=== PATIENT | female | born 1940 | race Caucasian/White ===

== ENCOUNTER 2016-04-11 12:10 | Outpatient (CLI) | payer MEDICARE | END 2016-04-11 12:11 | disposition home or self-care (01) | DX: G47.62 Sleep related leg cramps (principal); R25.1 Tremor, unspecified ==

== ENCOUNTER 2016-04-12 15:39 | Outpatient (CLI) | payer MEDICARE | END 2016-04-12 15:40 | disposition home or self-care (01) | DX: Z12.11 Encounter for screening for malignant neoplasm of colon (principal) ==

== ENCOUNTER 2016-05-09 12:48 | Outpatient (CLI) | payer MEDICARE | END 2016-05-09 12:49 | disposition home or self-care (01) | DX: E04.1 Nontoxic single thyroid nodule (principal) ==

== ENCOUNTER 2016-05-11 09:05 | Outpatient (CLI) | payer MEDICARE | END 2016-05-11 09:06 | disposition home or self-care (01) | DX: Z13.820 Encounter for screening for osteoporosis (principal); M81.0 Age-related osteoporosis without current pathological fracture ==

== ENCOUNTER 2017-04-18 10:30 | Outpatient (CLI) | payer MEDICARE ==
[2017-04-18 10:45] LABS: BASOPHILS % (AUTO) 0.4 %; EOSINOPHILS # (AUTO) 0.1 10^3/uL (0.0-0.7); EOSINOPHILS % (AUTO) 1.9 %; HGB - HEMOGLOBIN 15.1 g/dL (12.0-16.0); LYMPHOCYTES % (AUTO) 30.4 %; MEAN CORPUSCULAR HEMOGLOBIN 30.5 pg (27.0-31.0); MEAN CORPUSCULAR HGB CONC 33.9 g/dL (32.0-36.0); MEAN CORPUSCULAR VOLUME 90.1 fL (81.0-99.0); MEAN PLATELET VOLUME 7.4 fL (7.9-10.8); MONOCYTES # (AUTO) 0.5 10^3/uL (0.0-1.0); MONOCYTES % (AUTO) 8.2 %; NEUTROPHILS # (AUTO) 3.9 10^3/uL (1.5-6.6); NEUTROPHILS % (AUTO) 59.1 %; PLT - PLATELET COUNT 207 10^3/uL (130-450); RED BLOOD COUNT 4.94 10^6/uL (4.20-5.40); RED CELL DISTRIBUTION WIDTH 13.7 % (12.0-15.0); WHITE BLOOD COUNT 6.5 x10^3/uL (4.8-10.8)
[2017-04-18 10:51] LABS: ALBUMIN 4.2 g/dL (3.2-5.5); ALBUMIN/GLOBULIN RATIO 1.6 (1.0-2.2); ALKALINE PHOSPHATASE 59 IU/L (42-121); ALT ALANINE AMINOTRANSFERASE 21 IU/L (10-60); AST ASPARTATE AMINOTRANSFERASE 21 IU/L (10-42); BILIRUBIN,TOTAL 0.6 mg/dL (0.2-1.0); BUN - BLOOD UREA NITROGEN 18 mg/dL (6-20); CALCIUM 8.9 mg/dL (8.5-10.3); CARBON DIOXIDE - CO2 26 mmol/L (21-32); CHLORIDE 102 mmol/L (101-111); CHOL/HDL RATIO 3.7 (<4.4); CHOLESTEROL 253 mg/dL; CREATININE 0.8 mg/dL (0.4-1.0); GFR - MDRD 70 (>89); GLUCOSE 102 mg/dL (70-100); HDL CHOLESTEROL 68 mg/dL; LDL CHOLESTEROL,CALCULATED 171 mg/dL; LDL/HDL RATIO 2.5 (<4.4); SODIUM 139 mmol/L (135-145); TOTAL PROTEIN 6.9 g/dL (6.7-8.2); VLDL CHOLESTEROL 14 mg/dL
--- NOTE | 2017-04-18 11:28 | CT Report ---
DATE OF SERVICE: 04/18/2017 CT BRAIN WITHOUT CONTRAST: 04/18/2017 CLINICAL INDICATION: TIA, atypical headache TECHNIQUE: Axial CT images of the brain were obtained without intravenous contrast. No previous CT is available for comparison. FINDINGS: The ventricles and sulci are normal in size, shape and configuration. The basilar cisterns are patent. There is no evidence of hemorrhage, mass effect, or large territory infarction. The visualized orbital contents and paranasal sinuses are unremarkable. IMPRESSION: NORMAL CT OF THE BRAIN WITHOUT CONTRAST. In accordance with CT protocol optimization, one or more of the following dose reduction techniques were utilized for this exam: automated exposure control, adjustment of mA and/or KV based on patient size, or use of iterative reconstructive technique. TD: 04/18/2017 12:26
== END 2017-04-18 10:31 | disposition home or self-care (01) ==
LOC: LAB 10:30
PROVIDERS: ATTEND Physician Assistant Medical
DX: R51 Headache (principal); G45.9 Transient cerebral ischemic attack, unspecified; E78.00 Pure hypercholesterolemia, unspecified; E04.2 Nontoxic multinodular goiter
CPT/HCPCS: 36415; 70450; 80053; 80061; 83721; 84443; 85025

== ENCOUNTER 2017-04-26 06:56 | Day surgery (SDC) | payer MEDICARE ==
[~2017-04-26 06:56] MED LIST: CYCLOPENTOLATE 1% OPHTH DROPS 2 ML ONE; KETOROLAC 0.45% OPHTH DROPS ONE; PHENYLEPHRINE 2.5% OPHTH 2 ML DROPS ONE; PROPARACAINE 0.5% OPHTH DROPS 15 ML ONE
[2017-04-26] MEDS ORDERED: LACTATED RINGERS 500 ML IV ONE (07:03)
[2017-04-26] MEDS ORDERED: BRIMONIDINE 0.2% OPHTH DROPS 5 ML ONE (07:13)
[2017-04-26] MEDS ORDERED: TIMOLOL 0.5% OPHTH DROPS ONE (07:13)
[2017-04-26] MEDS ORDERED: PROPARACAINE 0.5% OPHTH DROPS 15 ML RIGHTEYE ONE ×2 (07:15→08:07)
[2017-04-26] MEDS ORDERED: CYCLOPENTOLATE 1% OPHTH DROPS 2 ML RIGHTEYE ONE (07:15)
[2017-04-26] MEDS ORDERED: PHENYLEPHRINE 2.5% OPHTH 2 ML DROPS RIGHTEYE ONE (07:15)
[2017-04-26] MEDS ORDERED: KETOROLAC 0.45% OPHTH DROPS RIGHTEYE ONE (07:15)
[2017-04-26] MEDS ORDERED: MIDAZOLAM 2 MG/2 ML VIAL IVP ONE (08:00)
[2017-04-26] MEDS ORDERED: EPINEPHrine 1 MG/ML AMP IVP ONE (08:05)
[2017-04-26] MEDS ORDERED: BRIMONIDINE 0.2% OPHTH DROPS 5 ML OPTH ONE (08:05)
[2017-04-26] MEDS ORDERED: BSS/LIDOCAINE/EPINEPHRINE 1 ML SYRINGE IO ONE ×2 (08:06)
[2017-04-26] MEDS ORDERED: CHONDR SULF/HYALURONATE SYRINGE IO ONE (08:06)
[2017-04-26] MEDS ORDERED: TIMOLOL 0.5% OPHTH DROPS OPTH ONE (08:06)
[2017-04-26] MEDS ORDERED: TRIAMCIN/MOXIFLOX/VANCO 1 ML VIAL IO ONE ×2 (08:07)
[2017-04-26 08:29] VITALS: BP 117/80
--- NOTE | 2017-04-26 10:21 | OPERATIVE REPORT ---
DATE OF SERVICE: 04/26/2017 Physician: Scout Winston MD DATE OF SURGERY: 04/26/2017 PREOPERATIVE DIAGNOSIS: Visually significant cataract, right eye. This was her first cataract surgery. POSTOPERATIVE DIAGNOSIS: Visually significant Visually significant cataract, right eye. This was her first cataract surgery. NAME OF PROCEDURE: Phacoemulsification with posterior chamber intraocular lens implant, right eye. SURGEON: Scout Winston MD ANESTHESIA: Monitored anesthesia care. COMPLICATIONS: None. OPERATIVE INDICATIONS: This is a 77-year-old woman with progressive vision loss in the right eye due to 2+ nuclear sclerotic cataract. Best corrected visual acuity was 20/50 with glare to 20/160 in the right eye. INDICATIONS FOR SURGERY Overall decrease in vision, difficulty seeing words on a computer screen; difficulty seeing words, closed caption, or game scores on TV; difficulty driving in low light or at night, difficulty driving at night because of head lights from other vehicles, and difficulty with glare or bright lights in any situation. She was consented at length concerning risks and benefits of cataract surgery, after which she expressed a desire to proceed with surgery. OPERATIVE PROCEDURE: The patient was taken into OR #3 and placed under monitored anesthesia care. A surgical timeout was conducted confirming correct patient, correct procedure, and correct surgical site. She was given topical anesthesia, and then prepped and draped in the usual sterile fashion. The eye was entered at the 12 and 9 o'clock position. Intracameral Shugarcaine was injected into the anterior chamber, followed by Viscoat. A continuous-tear curvilinear capsulorrhexis was performed. The nucleus was hydrodissected and phacoemulsified. The cortex was evacuated using automated infusion aspiration. Provisc was injected in the capsular bag, and the 19.0 diopter intraocular lens was inserted in the bag. Approximately 0.8 mL of a mixture of triamcinolone, moxifloxacin, and vancomycin was injected subconjunctivally in the superior quadrant for infection and inflammation prophylaxis. I and A was used to evacuate the viscoelastic materials. The eye was inflated to physiologic pressure using balanced salt solution and found watertight. The patient was taken from the operating room in good condition and given postoperative instructions. TD: 04/26/2017 10:20
== END 2017-04-26 06:57 | disposition home or self-care (01) ==
LOC: SDS 06:56
PROVIDERS: ATTEND Ophthalmology
PROC: 08RJ3JZ Replacement of Right Lens with Synthetic Substitute, Percutaneous Approach (ICD-10-PCS; principal; 2017-04-26 08:00)
DX: H25.11 Age-related nuclear cataract, right eye (principal)
CPT/HCPCS: 66984; A9270; J3490; V2632

== ENCOUNTER 2017-05-11 07:34 | Outpatient (CLI) | payer MEDICARE ==
[2017-05-11] MEDS ORDERED: GADOBUTROL 10 MMOL/10 ML VIAL ONE (07:45)
[2017-05-11] MEDS ORDERED: GADOBUTROL 10 MMOL/10 ML VIAL IVP ONE (08:31)
--- NOTE | 2017-05-11 11:53 | MRI Report ---
MR ANGIOGRAM HEAD INDICATION: 77-year-old female with episode of altered mental status. Concern for TIA. Please assess. TECHNIQUE: 3-D [id number] MR angiography. COMPARISON: None. FINDINGS: The internal carotid arteries appear widely patent bilaterally. No ICA aneurysm is demonstrated. Ther e are infundibular origins for the posterior communicating arteries bilaterally. These should not be mistaken for aneurysms. The A1 segments of the anterior cerebral arteries are essentially codominant. No definite anterior communicating artery is demonstrated. There is good flow related enhancement in the imaged A2 branches bilaterally. The middle cerebral arteries are unremarkable. No aneurysm is demonstrated and there is no evidence o f occlusion or hemodynamically significant stenosis affecting main branches of either MCA. The vertebral arteries and left PICA appear widely patent. No aneurysm at the left PICA origin. No ri ght PICA is identified. The right PICA circulation is probably supplied by the right AICA (normal william tomical variant). The basilar artery, superior cerebellar arteries, and posterior cerebral arteries a ppear widely patent. There are patent posterior communicating arteries. No aneurysms are identified a rising from the basilar artery trunk or apex. IMPRESSION: Normal [place] MR angiogram. Referring Provider Line: [phone] SITE ID: [id number]
--- NOTE | 2017-05-11 12:46 | MRI Report ---
MR ANGIOGRAM NECK WITHOUT AND WITH CONTRAST INDICATION: 77-year-old female with episode of altered mental status. Concern for TIA. Please assess. COMPARISON: None. TECHNIQUE: 1. T1 fat-saturated axial sequence. 2. 2D [id number] MR angiography. 3. 3D gadolinium-enhanced MR angiography. Significant arterial stenoses will be assessed using NASCET-type measurements. FINDINGS: The innominate artery and left common carotid artery share a common origin. This represents a known a natomical variant. Branching of the aortic arch is otherwise normal. No stenoses are demonstrated in the first order supra-aortic arteries. Right carotid artery: Normal. Left carotid artery: Normal. Right vertebral artery: Normal. Left vertebral artery: Normal. IMPRESSION: Normal neck MR angiogram. Referring Provider Line: [phone] SITE ID: [id number]
== END 2017-05-11 07:35 | disposition home or self-care (01) ==
LOC: DI 07:34
PROVIDERS: ATTEND Physician Assistant Medical
DX: E78.70 Disorder of bile acid and cholesterol metabolism, unspecified (principal); G45.9 Transient cerebral ischemic attack, unspecified
CPT/HCPCS: 70544; 70549; A9585

== ENCOUNTER 2018-04-07 14:32 | Observation (INO) | payer MEDICARE ==
[2018-04-07 14:58] LABS: BILIRUBIN,URINE NEGATIVE (NEGATIVE); GLUCOSE, URINE (UA) NEGATIVE (NEGATIVE); KETONES,URINE (UA) NEGATIVE (NEGATIVE); LEUKOCYTE ESTERASE, URINE TRACE (NEGATIVE); NITRITE,URINE NEGATIVE (NEGATIVE); OCCULT BLOOD,URINE TRACE-INTA (NEGATIVE); PH,URINE 5.5 PH (5.0-7.5); PROTEIN,URINE NEGATIVE (NEGATIVE); UROBILINOGEN,URINE 0.2 (NORMAL) E.U./dL (NORMAL)
[2018-04-07 15:14] LABS: CLARITY,URINE CLEAR (CLEAR)
[2018-04-07 15:16] LABS: BACTERIA,URINE None Seen /HPF (None Seen); RBC,URINE 0-5 /HPF (0-5); SQUAMOUS EPITHELIAL CELL,UR MOD Squamous (<= Few)
--- NOTE | 2018-04-07 15:20 | ED Physician Documentation ---
PD HPI FOCAL NEURO - Stated complaint Stated Complaint: NAUSEA/CONFUSION/WEEK - Chief complaint Chief Complaint: Neuro - History obtained from History obtained from: Patient - History of Present Illness Timing - onset: Enter time (about 1300), How many hours ago (03 19/) Timing - duration: Hours (1) Timing - details: Abrupt onset (She had felt somewhat lightheaded or confused for about 5 minutes prior to the onset of then feeling some numbness on the left side of her mouth and also feeling that she had some confusion for what she was doing. 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 She tried talking to her daughter and was having difficulty making sense. She got out of the car for her daughter to then drive and she felt off balance or slightly weak. She cannot tell if it was one-sided per se. She continued with trouble speaking and the numbness feeling on the left side of the face as her daughter drove her home and then discontinued at home and then driving up here to the hospital from [place]. It was improving on arriving to the ER and is feeling about back to normal coming back to 1 of the rooms. So total duration was close to an hour of symptoms. She denied any headache with it.) Severity of deficit: Mild Weakness: No: Face Numbness: Face, Left Associated symptoms: Other (trouble speaking). No: Headache, Nausea / vomiting, Fall, Fever Contributing factors: negative: Anticoagulated, Vascular dz, Atrial fibrillation Baseline status: positive: A&OX3, ambulatory, indep Similar symptoms before: Has not had sx before (does have history of migraines but does not currently have headache nor has she had similar symptoms with headaches in the past.) Recently seen: Not recently seen Review of Systems Constitutional: denies: Fever, Chills Eyes: denies: Loss of vision, Photophobia Nose: denies: Rhinorrhea / runny nose, Congestion Throat: denies: Sore throat Cardiac: denies: Chest pain / pressure, Palpitations Respiratory: denies: Dyspnea, Cough GI: denies: Abdominal Pain, Nausea, Vomiting, Diarrhea Musculoskeletal: reports: Neck pain (the past 2 days, in back of neck, not improved with ROM of the neck.). denies: Back pain Neurologic: reports: Numbness (left side of face around mouth just today), Difficulty speaking, Confused. denies: Generalized weakness, Focal weakness, Near syncope, Headache, Head injury Endocrine: denies: Weight loss Immunocompromised: denies: Immunocompromised PD PAST MEDICAL HISTORY - Past Medical History Cardiovascular: None Respiratory: None Neuro: Migraines Endocrine/Autoimmune: None Psych: None Musculoskeletal: None - Past Surgical History Past Surgical History: Yes HEENT: Tonsil/Adenoidectomy - Present Medications Home Medications: Ambulatory Orders Medication Instructions Recorded Confirmed Cyanocobalamin (Vitamin B-12) 1,000 mcg PO DAILY 04/25/17 04/07/18 [Vitamin B-12] Magnesium 250 mg PO DAILY 04/25/17 04/07/18 Phytonadione [Vitamin K] 100 mcg PO DAILY 04/25/17 04/07/18 Ubidecarenone [Co Q-10] 200 mg PO DAILY 04/25/17 04/07/18 - Allergies Allergies/Adverse Reactions: Allergies Allergy/AdvReac Type Severity Reaction Status Date / Time No Known Drug Allergies Allergy Verified 04/07/18 15:23 - Living Situation Living Arrangement: reports: At home - Social History Does the pt smoke?: No Smoking Status: Never smoker Does the pt drink ETOH?: Yes Does the pt have substance abuse?: No - Family History Family history: reports: CAD - Immunizations Immunizations are current?: Yes - POLST Patient has POLST: No PD ED PE NORMAL - Vitals Vital signs reviewed: Yes - General General: Alert and oriented X 3, No acute distress, Well developed/nourished - HEENT HEENT: PERRL (not light sensitive), EOMI, Pharynx benign - Neck Neck: Supple, no meningeal sign, No adenopathy, No bruit - Cardiac Cardiac: RRR, No murmur - Respiratory Respiratory: Clear bilaterally - Abdomen Abdomen: Soft, Non tender - Female Female : Deferred - Rectal Rectal: Deferred - Back Back: No CVA TTP - Derm Derm: Normal color, Warm and dry - Extremities Extremities: No deformity, No tenderness to palpate - Neuro Neuro: Alert and oriented X 3, 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, No motor deficit, No sensory deficit, Normal speech Eye Opening: Spontaneous Motor: Obeys Commands Verbal: Oriented GCS Score: 15 - Psych Psych: Normal mood, Normal affect NIHSS - Level of Consciousness Level of consciousness: (0) Alert, Keenly responsive LOC Questions: (0) Answers both Q's correct LOC Commands: (0) Performs both correctly - Gaze Best Gaze: (0) Normal - Visual Visual: (0) No loss - Facial Palsy Facial Palsy: (0) Normal, symmetrical movement - Motor Arms (both separate) Motor Arm (right): (0) No drift Motor Arm (left): (0) No drift - Motor Legs (both separate) Motor Leg (right): (0) No drift Motor Leg (left): (0) No drift - Limb Ataxia Limb Ataxia: (0) Absent - Sensory Sensory: (0) Normal - Best Language Best Language: (0) No aphasia - Dysarthria Dysarthria: (0) Normal - Extinction and Inattention (formally neg Extinction and inattention: (0) No abnormality - Total Score/Results Total Score/Result: 0 Results - Vitals Vitals: Vital Signs - 24 hr 04/07/18 04/07/18 04/07/18 14:35 17:12 17:55 Temperature 35.8 C L Heart Rate 74 68 65 Respiratory 18 12 16 Rate Blood Pressure 148/92 H 166/75 H 154/90 H O2 Saturation 100 96 98 Oxygen O2 Source Room air - EKG (time done) 15:22 Rate: Rate (enter#) (65) Rhythm: NSR Yancey: Normal Intervals: Normal MN QRS: Normal Ischemia: Normal ST segments. No: ST elevation c/w ischemia, ST depression - Labs Labs: Laboratory Tests 04/07/18 04/07/18 04/07/18 14:40 16:20 16:20 WBC 7.1 RBC 4.88 Hgb 14.7 Hct 44.6 MCV 91.4 MCH 30.0 MCHC 32.9 RDW 13.9 Plt Count 201 MPV 7.8 L Neut # (Auto) 4.1 Lymph # (Auto) 2.2 [place]ette # (Auto) 0.6 Eos # (Auto) 0.2 Baso # (Auto) 0.1 Absolute Nucleated RBC 0.01 Nucleated RBC % 0.1 ESR Sodium 139 Potassium 3.6 Chloride 106 Carbon Dioxide 24 Anion Gap 9.0 BUN 16 Creatinine 0.8 Estimated GFR (MDRD) 69 L Glucose 100 Calcium 8.9 Magnesium 2.4 Total Bilirubin 0.8 AST 22 ALT 19 Alkaline Phosphatase 76 Total Protein 7.1 Albumin 4.1 Globulin 3.0 Albumin/Globulin Ratio 1.4 Lipase 63 H Urine Color YELLOW Urine Clarity CLEAR Urine pH 5.5 Ur Specific [place] <=1.005 Urine Protein NEGATIVE Urine Glucose (UA) NEGATIVE Urine Ketones NEGATIVE Urine Occult Blood TRACE-INTA Urine Nitrite NEGATIVE Urine Bilirubin NEGATIVE Urine Urobilinogen 0.2 (NORMAL) Ur Leukocyte Esterase TRACE H Urine RBC 0-5 Urine WBC 0-3 Ur Squamous Epith Cells MOD Squamous H Urine Bacteria None Seen Ur Microscopic Review INDICATED Urine Culture Comments NOT INDICATED 04/07/18 16:20 WBC RBC Hgb Hct MCV MCH MCHC RDW Plt Count MPV Neut # (Auto) Lymph # (Auto) [place] # (Auto) Eos # (Auto) Baso # (Auto) Absolute Nucleated RBC Nucleated RBC % ESR 4 Sodium Potassium Chloride Carbon Dioxide Anion Gap BUN Creatinine Estimated GFR (MDRD) Glucose Calcium Magnesium Total Bilirubin AST ALT Alkaline Phosphatase Total Protein Albumin Globulin Albumin/Globulin Ratio Lipase Urine Color Urine Clarity Urine pH Ur Specific [place] Urine Protein Urine Glucose (UA) Urine Ketones Urine Occult Blood Urine Nitrite Urine Bilirubin Urine Urobilinogen Ur Leukocyte Esterase Urine RBC Urine WBC Ur Squamous Epith Cells Urine Bacteria Ur Microscopic Review Urine Culture Comments - Rads (name of study) head CT Radiology: Prelim report reviewed, Discussed with rads (no acute findings), EMP read contemporaneously, See rad report head/neck angio Radiology: Prelim report reviewed (no acute flow abnormality), See rad report PD MEDICAL DECISION MAKING - ED course Complexity details: reviewed results, re-evaluated patient (still normal neuro), considered differential (Has TIA type symptoms with resolution of them on ER arrival. She has not had any recurrent symptoms. She has a history of migraines but states this is not typical of her migraines and she does not have any headache right now. I would be most concerned for TIA and I feel she needs further workup for that. I talked with the hospitalist who agrees to have her in the hospital for further evaluation.), d/w patient, d/w corporate consultant (Shannan antonio) Departure - Departure Disposition: ED Place in Observation Clinical Impression: Expressive aphasia, Left facial numbness, TIA (transient ischemic attack) Condition: Stable Record reviewed to determine appropriate education?: Yes
[2018-04-07] MEDS ORDERED: SODIUM CHLORIDE 0.9% 1,000 ML IV ONE (15:59)
[2018-04-07] MEDS ORDERED: IOVERSOL 320 100 ML VIAL IVP ONE ×2 (16:12→16:51)
[2018-04-07 16:31] LABS: BASOPHILS # (AUTO) 0.1 10^3/uL (0.0-0.1); EOSINOPHILS # (AUTO) 0.2 10^3/uL (0.0-0.7); EOSINOPHILS % (AUTO) 2.4 %; HGB - HEMOGLOBIN 14.7 g/dL (12.0-16.0); LYMPHOCYTES # (AUTO) 2.2 10^3/uL (1.5-3.5); LYMPHOCYTES % (AUTO) 30.3 %; MEAN CORPUSCULAR HGB CONC 32.9 g/dL (32.0-36.0); MEAN CORPUSCULAR VOLUME 91.4 fL (81.0-99.0); MEAN PLATELET VOLUME 7.8 fL (7.9-10.8); MONOCYTES # (AUTO) 0.6 10^3/uL (0.0-1.0); NEUTROPHILS # (AUTO) 4.1 10^3/uL (1.5-6.6); NEUTROPHILS % (AUTO) 57.3 %; PLT - PLATELET COUNT 201 10^3/uL (130-450); RED BLOOD COUNT 4.88 10^6/uL (4.20-5.40); RED CELL DISTRIBUTION WIDTH 13.9 % (12.0-15.0); WHITE BLOOD COUNT 7.1 x10^3/uL (4.8-10.8)
[2018-04-07 17:01] LABS: ALBUMIN 4.1 g/dL (3.2-5.5); ALBUMIN/GLOBULIN RATIO 1.4 (1.0-2.2); BILIRUBIN,TOTAL 0.8 mg/dL (0.2-1.0); CALCIUM 8.9 mg/dL (8.5-10.3); CREATININE 0.8 mg/dL (0.4-1.0); MAGNESIUM 2.4 mg/dL (1.7-2.8); TOTAL PROTEIN 7.1 g/dL (6.7-8.2)
--- NOTE | 2018-04-07 17:27 | CT Report ---
Reason: aphasia and facial numbness Procedure Date: 04/07/2018 Accession Number: [id number] / [id number] Procedure: CT - Head W/O Stroke Protocol CPT Code: FULL RESULT: EXAM: CT HEAD EXAM DATE: 04/07/2018 04:57 PM. CLINICAL HISTORY: Aphasia and facial numbness. COMPARISON: HEAD W/O 04/18/2017 10:43 AM. TECHNIQUE: Multiaxial CT images were obtained from the foramen magnum to the vertex. Reformats: Sagittal and coronal. IV contrast: None. In accordance with CT protocol optimization, one or more of the following dose reduction techniques were utilized for this exam: automated exposure control, adjustment of mA and/or KV based on patient size, or use of iterative reconstructive technique. FINDINGS: Parenchyma: No intracranial hemorrhage. No evidence of mass, midline shift or CT findings of acute territorial infarction. Richards-white differentiation is distinct. Extraaxial Spaces: No subdural or epidural collections identified. Ventricles: No hydrocephalus Sinuses: Imaged paranasal sinuses, orbits, and mastoids show no significant abnormality. Bones: No evidence of acute fracture or calvarial defect. Other: None. IMPRESSION: No acute intracranial abnormalities. RADIA The call report notification system was initiated by Dr. Yamil Wheatley at 17:09 hrs on 04/07/18. The above findings were discussed with Vinny Grant by Dr. Yamil Wheatley at 17:26 hrs on 04/07/18.
--- NOTE | 2018-04-07 17:32 | CT Report ---
Reason: aphasia and facial numbness Procedure Date: 04/07/2018 Accession Number: [id number] / [id number] Procedure: CT - Head Angio CPT Code: FULL RESULT: EXAM: CT ANGIOGRAM HEAD. CT SCAN OF THE HEAD WITH CONTRAST. EXAM DATE: 04/07/2018 04:57 PM CLINICAL HISTORY: 78-year-old female. Aphasia and facial numbness. COMPARISON: Noncontrast CT head 04/07/2018, MRA head 05/11/2017 TECHNIQUE: - CT Scan Head: Using a multidetector scanner, axial images were acquired from the foramen magnum to the skull vertex following contrast administration. - CT Angiogram: Using a multidetector scanner, high-resolution axial images were acquired from the skull base through vertex following rapid infusion of intravenous contrast. Reformats: Multiplanar MIP reformats were reconstructed. Nascet criteria used for stenosis measurement. IV Contrast: 80 cc Optiray [address] protocol optimization, one or more of the following dose reduction techniques were utilized for this exam: automated exposure control, adjustment of mA and/or KV based on patient size, or use of iterative reconstructive technique. FINDINGS: NON-CONTRAST HEAD: Performed and dictated separately. POST-CONTRAST HEAD: No abnormal enhancement. CT ANGIOGRAM HEAD: RIGHT: Internal Carotid artery: No evidence of dissection. No evidence of aneurysm along the intracranial ICA. Anterior Cerebral Artery: Patent without significant stenosis, aneurysm, or vascular malformation. Middle Cerebral Artery: Patent without significant stenosis, aneurysm, or vascular malformation. Posterior Cerebral Artery: Patent without significant stenosis, aneurysm, or vascular malformation. Posterior Communicating Artery: Not well visualized, likely hypoplastic. Vertebral Artery: Patent without significant stenosis. No evidence of dissection. LEFT: Internal Carotid artery: No evidence of dissection. No evidence of aneurysm along the intracranial ICA. Anterior Cerebral Artery: Patent without significant stenosis, aneurysm, or vascular malformation. Middle Cerebral Artery: Patent without significant stenosis, aneurysm, or vascular malformation. Posterior Cerebral Artery: Patent without significant stenosis, aneurysm, or vascular malformation. Posterior Communicating Artery: Patent. No aneurysm. Vertebral Artery: Patent without significant stenosis. No evidence of dissection. CENTRAL: Anterior Communicating Artery: Patent. No aneurysm. Basilar Artery: Patent without significant stenosis. No aneurysm. DURAL VENOUS SINUSES AND MAJOR CENTRAL VEINS: Patent. IMPRESSION: 1. Concurrently obtained noncontrast CT head has been dictated separately. 2. No abnormal enhancement on the postcontrast CT head. 3. No CTA evidence of hemodynamically significant stenosis, large vessel occlusion, acute dissection, aneurysm, or vascular malformation within intracranial arteries. 4. CTA of the neck is dictated separately. RADIA
--- NOTE | 2018-04-07 17:39 | CT Report ---
Reason: aphaisa and facial numbness; neck pain Procedure Date: 04/07/2018 Accession Number: [id number] / [id number] Procedure: CT - Neck Angio CPT Code: FULL RESULT: EXAM: CT ANGIOGRAM NECK EXAM DATE: 04/07/2018 04:57 PM. CLINICAL HISTORY: 78-year-old female Aphasia and facial numbness; neck pain. COMPARISON: HEAD W/O 04/18/2017 10:43 AM. TECHNIQUE: Routine axial helical imaging was performed from the skull base through the aortic arch. Reconstructions: Routine multiplanar 3D MIP reconstructions. IV Contrast: 80 cc Optiray 320. Evaluation of arterial stenosis is based on a NASCET method of measurement. In accordance with CT protocol optimization, one or more of the following dose reduction techniques were utilized for this exam: automated exposure control, adjustment of mA and/or KV based on patient size, or use of iterative reconstructive technique. FINDINGS: Right Carotid: The common carotid, internal carotid, and external carotid arteries are widely patent. No dissection, significant atherosclerotic plaque, or calcification identified. Left Carotid: The common carotid, internal carotid, and external carotid arteries are widely patent. No dissection, significant atherosclerotic plaque, or calcification identified. Vertebrals: The vertebrobasilar system shows no stenoses. Intracranial Circulation: Concurrently obtained CT of the head is dictated separately. Other: The visualized lung apices are clear. Mild multilevel degenerative spondylosis, no acute fracture or malalignment. Two Hypodense lesions are seen within the left thyroid lobe measuring 7 mm and 12 mm. The visualized soft tissues of the neck demonstrate no acute abnormality. IMPRESSION: 1. No CTA evidence of hemodynamically significant stenosis, large vessel occlusion, acute dissection, aneurysm, or vascular malformation within extracranial arteries. 2. Concurrently obtained CTA of the head is dictated separately. 3. Two hypodense lesions are seen within the left thyroid lobe measuring 7 mm and [address]. [address] appearance is nonspecific, recommend follow-up nonemergent thyroid ultrasound to further evaluate. RADIA
[2018-04-07] MEDS ORDERED: MAG HYDROX/AL HYDROX/SIMETH 30 ML UDC PO STA (17:46)
[2018-04-07] MEDS ORDERED: ASPIRIN CHEW 81 MG TABLET PO STA (17:46)
[2018-04-07] MEDS ORDERED: SODIUM CHLORIDE FLUSH 0.9% 10 ML SYRINGE IVP PRN (18:00)
[2018-04-07] MEDS ORDERED: TEMAZEPAM 15 MG CAPSULE PO PRN (18:00)
[2018-04-07] MEDS ORDERED: ACETAMINOPHEN 325 MG TABLET PO PRN (18:00)
[2018-04-07] MEDS ORDERED: ONDANSETRON ODT 4 MG TABLET TL PRN (18:00)
--- NOTE | 2018-04-07 18:04 | HISTORY & PHYSICAL EXAMINATION ---
Chief Complaint - Chief Complaint Chief Complaint: mild confusion, expressive aphasia History of Present Illness - Admitted From Admitted From:: ED - History Obtained From Records Reviewed: yes History obtained from: chart review, patient Exam Limitations: none - History of Present Illness HPI Comment/Other: Shahida Sanchez is a 78 year old female with a past medical history of hyperlipidemia, nocturnal leg cramps, thyroid nodules, migraines, TIA, tremor, chronic back pain, and osteoporosis. She arrived in the ED via private car with a primary complaint of "feeling a little foggy" while driving. The patient states that she was in her usual state of health this morning and lunch, but for the past several weeks has noticed some visual disturbances in which she has a hard time focusing. When she relaxes her whole body, she can then see just fine. She also notes that for the past few months she can feel her heart racing just as she lies down to sleep, which does not cause her chest pain or tightness and resolves on its own. She states that she called her daughter after pulling the car off the road, who noted her mother to be slurring her words, and could not get the words out. The patient states that she did not loose consciousness, had numbness/tingling to the corner of her left lips, felt anxious, mildly nauseated, slightly dizzy, and disorientated. The patient's daughter, Dione was actually on a walk about 5 minutes from her mother's car. She quickly got to the car, drove her home, but once they attempted to get into the house the dizziness persisted. She drove her mother to the ED. Once in the ED imaging including a neck/head CTA and a head CT were negative for any acute changes. All labs were unremarkable. Vital signs showed a slight elevation in blood pressure at 154/90. Upon my exam, of her symptoms had subsided and she is found to have neuro-focal deficits. She will be admitted to observation for further work up including a head MRI, and echocardiogram. History - Past Medical History Cardiovascular: reports: Hypertension, High cholesterol Respiratory: reports: None Neuro: reports: Dementia, TIA, Headaches, Migraines, Tremors Endocrine/Autoimmune: reports: None GI: reports: GERD SENIOR COST ESTIMATOR: reports: None : reports: Nocturia, Frequency HEENT: reports: Chronic sinusitis Psych: reports: None Musculoskeletal: reports: Chronic back pain Derm: reports: None MRSA Hx?: No - Past Surgical History /SENIOR COST ESTIMATOR: reports: Tubal ligation, Other (2 breast biopsies-negative) HEENT: reports: Tonsil/Adenoidectomy - Family & Social History Family History: Mother: , Father: Family History Comment/Other: Mother at age 86, had a tremor. Father at age 85, LUPIS from sepsis, other family hx of heart disease. Living arrangement: At home Living Situation: Alone Social History Notes: She lives independently in [place], [place]. She has a dog, a cat and worked for the [employer] for several years before retiring. She belongs to the foster and adoption support program out of [place]. She enjoys walking her dog and does daily water aerobics. - Substance History Use: Uses substance without health or social issues: NONE Abuse: Recurrent use of substance despite neg consequences: NONE Dependence: Experiences withdrawal or developed tolerances: NONE - POLST Patient has POLST: No POLST Status: Full Code Meds/Allgy - Home Medications Home Medications: Ambulatory Orders Medication Instructions Recorded Confirmed Cyanocobalamin (Vitamin B-12) 1,000 mcg PO DAILY 04/25/17 04/07/18 [Vitamin B-12] Magnesium 250 mg PO DAILY 04/25/17 04/07/18 Phytonadione [Vitamin K] 100 mcg PO DAILY 04/25/17 04/07/18 Ubidecarenone [Co Q-10] 200 mg PO DAILY 04/25/17 04/07/18 - Allergies Allergies/Adverse Reactions: Allergies Allergy/AdvReac Type Severity Reaction Status Date / Time No Known Drug Allergies Allergy Verified 04/07/18 15:23 Review of Systems - Constitutional Constitutional: reports: Fever (One week ago, resoved.), Chills (one week ago, resolved.) - Eyes Eyes: reports: Spots in vision, Vision loss (more frequent blurred vision, related to squinting), Corrective lenses - Ears, Nose & Throat Ears, Nose & Throat: reports: Postnasal drainage - Cardiovascular Cariovascular: reports: Palpitations (noticed around 1 month ago, only occurs while lying down for bed at night.), Lightheadedness - Respiratory Respiratory: reports: Cough (chronic dry cough) - Gastrointestinal Gastrointestinal: reports: Reflux/heartburn - Genitourinary Genitourinary: reports: Nocturia - Neurological Neurological: reports: Headache, Dizziness, Memory problems, Pre-existing deficit, Slurred speech (resolved now) - All Other Systems All Other Systems: reports: Reviewed and negative Prior Level of Functionality: Live independently, no recent falls, no use of walker or cane. Walks her dog. drives a car Exam - Vital Signs Reviewed Vital Signs: Yes Vital Signs: Vital Signs x48h Temp Pulse Resp BP Pulse Ox 04/07/18 17:55 65 16 154/90 H 98 04/07/18 17:12 68 12 166/75 H 96 04/07/18 14:35 35.8 C L 74 18 148/92 H 100 - Physical Exam General Appearance: positive: No acute distress, Alert Eyes Bilateral: positive: Normal inspection, PERRL, EOMI, No lid inflammation, No scleral icterus ENT: positive: ENT inspection nml, Pharynx nml, No signs of dehydration Neck: positive: Thyroid nml, No JVD, Trachea midline Respiratory: positive: Chest non-tender, No respiratory distress, Breath sounds nml Cardiovascular: positive: Regular rate & rhythm, No gallop, Systolic murmur Peripheral Pulses: positive: 2+ Abdomen: positive: Non-tender, Nml bowel sounds, Other (rounded, soft) Skin: positive: Color nml, No rash, Warm, Dry Extremities: positive: Non-tender, Full ROM, Nml appearance, No pedal edema Neurologic/Psychiatric: positive: Oriented x3, CN's nml (2-12), Motor nml, Sensation nml, Mood/affect nml Reflexes: Bicep (R): 3+, Bicep (L): 3+, Ankle (R): 3+, Ankle (L): 3+ Sepsis Event Note (H) - Evaluation Current Stage of Sepsis: Ruled out Conclusion/Plan - Problem List (1) Expressive aphasia Conclusion/Plan: The patient had an episode of this that lasted under 5 minutes and is now resolved. She states that this was first noticed when she had an episode of "foggy thinking" while driving her car. She pulled the car to the side of the road, and immediately called her daughter. When attempting to describe what she was feeling, this was noticed. Her daughter, Dione rushed to her mother's car, and this symptom was then resolved. Plan: continue TIA work up. (2) Left facial numbness Conclusion/Plan: The patient states that her left corner of her lips felt numb and tingled, which only 5 minutes. This symptom has been resolved and on exam, there is no facial droop appreciated. Plan: Continue TIA work up. (3) TIA (transient ischemic attack) Conclusion/Plan: As Per chart review, the patient had her last TIA work up on 04/18/2017, imaging was unremarkable for CVA. Upon arrival to the ED the patient reported that she called her daughter and was having difficulty with word finding, facial numbness and felt as if she was in a fog, so drove to the ED. Imaging including a head CTA/CT and neck CTA are all negative for acute abnormalities. Plan: head MRI in the AM, echo in the AM, PT/OT evaluation if needed. (4) Hyperlipidemia Conclusion/Plan: The patient takes turmeric, Co Q 10, and possibly a NOT a statin. She admits to daily drinking only "1-2 glasses of wine". Plan: Give high dose atorvastatin this evening. Continue x3 days, then 40mg daily. Check lipid panel, labs in the AM. Qualifiers: Hyperlipidemia type: mixed hyperlipidemia Qualified Code(s): E78.2 - Mixed hyperlipidemia (5) Hypertension Conclusion/Plan: The patient is prescribed Turmeric at home, but no antihypertensives. On arrival to the nursing unit she is found to be hypertensive with a blood pressure of 154/90, and denies previous problems with blood pressure. Plan: Continue to allow passive blood pressure in light of possible TIA/CVA. Qualifiers: Hypertension type: essential hypertension Qualified Code(s): I10 - Essential (primary) hypertension (6) Hx of migraines Conclusion/Plan: The patient states that she has a long history of this and also admits to a chronic dry cough, post-nasal gtt, and possible sleep apnea. Plan: Continue TIA work up, evaluate for chronic sinusitis after results from head MRI that is ordered for 04/08/18. (7) Memory loss Conclusion/Plan: The patient has this listed in her medical chart from her PCP, and admits to mild STM loss. She lives independently and seems to get along fine. Plan: Continue TIA work up. (8) Multiple thyroid nodules Conclusion/Plan: These were noted on imaging of the neck and described as the left thyroid with lesions measuring 7 mm and 12 mm. Follow up is recommended. On 05/11/17, a similar finding was noted and measured 2.2 x 1.7 x 1.5 cm. The patient denies any thyroid dysfunction. Plan: Check a TSH in the AM. - Lab Results Lab results reviewed: Yes Romeo Bones: 04/08/18 05:23 04/08/18 05:23 - Diagnostic Imaging Results Diagnostic Imaging Results: positive: Final report reviewed Diagnostic Imaging Results Comments: EXAM: CT ANGIOGRAM NECK EXAM DATE: 04/07/2018 04:57 PM. IMPRESSION: 1. No CTA evidence of hemodynamically significant stenosis, large vessel occlusion, acute dissection, aneurysm, or vascular malformation within extracranial arteries. 2. Concurrently obtained CTA of the head is dictated separately. 3. Two hypodense lesions are seen within the left thyroid lobe measuring 7 mm and [address] appearance is nonspecific, recommend follow- up nonemergent thyroid ultrasound to further evaluate. EXAM: CT HEAD EXAM DATE: 04/07/2018 04:57 PM IMPRESSION: No acute intracranial abnormalities. EXAM: CT ANGIOGRAM HEAD/CT SCAN OF THE HEAD WITH CONTRAST EXAM DATE: 04/07/2018 04:57 PM IMPRESSION: 1. Concurrently obtained noncontrast CT head has been dictated sep shelbi. 2. No abnormal enhancement on the postcontrast CT head. 3. No CTA evidence of hemodynamically significant stenosis, large vessel occlusion, acute dissection, aneurysm, or vascular malformation within intracranial arteries. 4. CTA of the neck is dictated separately. - EKG Results EKG Interpreted Independently: Yes EKG Comparison: Unchanged from prior EKG EKG Findings: SR in the 60's. Core Measures - Anticipated LOS I expect patient to be DC'd or transferred within 96 hours.: Yes - DVT/VTE - Prophylaxis VTE/DVT Device ordered at admit?: Yes VTE/DVT Prophylaxis med ordered at admit?: Yes - Stroke - Rehab Assessment Rehab services assessment to be ordered?: No Not Ordered - Medical Reason: Contraindicated - AMI - Statin at Admit Aspirin Prescribed on Admit: Yes
[2018-04-07] MEDS: SODIUM CHLORIDE 0.9% 1,000 ML IV SCH (18:39)
[2018-04-07] MEDS ORDERED: FAMOTIDINE 20 MG TABLET PO SCH (21:00)
[2018-04-07] MEDS: ATORVASTATIN 40 MG TABLET PO SCH (21:15)
[2018-04-08] MEDS: SODIUM CHLORIDE FLUSH 0.9% 10 ML SYRINGE IVP SCH ×2 (01:51→14:37)
[2018-04-08] MEDS: SODIUM CHLORIDE 0.9% 1,000 ML IV SCH (04:35)
[2018-04-08 05:47] LABS: ALBUMIN 3.3 g/dL (3.2-5.5); ALBUMIN/GLOBULIN RATIO 1.4 (1.0-2.2); ALKALINE PHOSPHATASE 61 IU/L (42-121); ALT ALANINE AMINOTRANSFERASE 17 IU/L (10-60); AST ASPARTATE AMINOTRANSFERASE 19 IU/L (10-42); BILIRUBIN,TOTAL 0.6 mg/dL (0.2-1.0); BUN - BLOOD UREA NITROGEN 14 mg/dL (6-20); CALCIUM 8.3 mg/dL (8.5-10.3); CARBON DIOXIDE - CO2 25 mmol/L (21-32); CHLORIDE 108 mmol/L (101-111); CHOLESTEROL 210 mg/dL; CREATININE 0.6 mg/dL (0.4-1.0); GFR - MDRD 97 (>89); GLUCOSE 98 mg/dL (70-100); HDL CHOLESTEROL 52 mg/dL; LDL CHOLESTEROL,CALCULATED 147 mg/dL; LDL/HDL RATIO 2.8 (<4.4); PHOSPHORUS 3.4 mg/dL (2.5-4.6); SODIUM 140 mmol/L (135-145); TOTAL PROTEIN 5.6 g/dL (6.7-8.2); VLDL CHOLESTEROL 11 mg/dL
[2018-04-08 05:51] LABS: BASOPHILS % (AUTO) 0.6 %; EOSINOPHILS # (AUTO) 0.2 10^3/uL (0.0-0.7); EOSINOPHILS % (AUTO) 4.5 %; HGB - HEMOGLOBIN 13.7 g/dL (12.0-16.0); LYMPHOCYTES # (AUTO) 2.2 10^3/uL (1.5-3.5); LYMPHOCYTES % (AUTO) 40.3 %; MEAN CORPUSCULAR HEMOGLOBIN 30.4 pg (27.0-31.0); MEAN CORPUSCULAR HGB CONC 33.5 g/dL (32.0-36.0); MEAN CORPUSCULAR VOLUME 90.7 fL (81.0-99.0); MEAN PLATELET VOLUME 7.6 fL (7.9-10.8); MONOCYTES # (AUTO) 0.6 10^3/uL (0.0-1.0); MONOCYTES % (AUTO) 10.2 %; NEUTROPHILS # (AUTO) 2.5 10^3/uL (1.5-6.6); NEUTROPHILS % (AUTO) 44.4 %; PLT - PLATELET COUNT 195 10^3/uL (130-450); RED CELL DISTRIBUTION WIDTH 13.7 % (12.0-15.0); WHITE BLOOD COUNT 5.6 x10^3/uL (4.8-10.8)
[2018-04-08] MEDS ORDERED: ENOXAPARIN 40 MG/0.4 ML SYRINGE SUBQ SCH (09:00)
[2018-04-08] MEDS ORDERED: POLYETHYLENE GLYCOL 3350 17 GM PACKET PO SCH (09:00)
[2018-04-08] MEDS ORDERED: ASPIRIN 325 MG TABLET PO SCH (09:00)
[2018-04-08] MEDS ORDERED: FAMOTIDINE 20 MG TABLET PO SCH (09:00)
[2018-04-08] MEDS ORDERED: GI COCKTAIL 120 ML BOTTLE PO ONE (09:02)
[2018-04-08 09:13] LABS: HB2 TOTAL 14.6 g/dL; HEMOGLOBIN A1C 0.52 g/dL; HEMOGLOBIN A1C % 5.4 % (4.6-6.2)
[2018-04-08] MEDS: ATORVASTATIN 40 MG TABLET PO SCH (11:02)
--- NOTE | 2018-04-08 12:25 | MRI Report ---
Reason: TIA Procedure Date: 04/08/2018 Accession Number: [id number] / [id number] Procedure: MRI - Brain W/O CPT Code: FULL RESULT: EXAM: MRI BRAIN WITHOUT CONTRAST EXAM DATE: 04/08/2018 11:29 AM. CLINICAL HISTORY: Transient ischemic attack. Left-sided facial numbness. Memory loss. Migraines. COMPARISON: Head without stroke protocol 04/07/2018 4:42 PM Head angio 04/07/2018 4:42 PM. TECHNIQUE: Multiplanar, multisequence T1-weighted and fluid-sensitive MR sequences of the brain were performed. Sequences optimized for routine evaluation. Other: None. IV Contrast: None. FINDINGS: Brain Volume: Normal for age. Parenchyma/Dura: No mass, acute infarct or hemorrhage. No significant loomis matter or white matter signal abnormality is appreciated. Ventricles/Cisterns: The ventricles, sulci, and cisterns are unremarkable. No hydrocephalus. No abnormal extra-axial fluid collection or hemorrhage. Orbits: Symmetric and unremarkable. Sella Turcica: The pituitary gland, cavernous sinuses, suprasellar cistern and optic chiasm are unremarkable. IAC: Symmetric and unremarkable. Vasculature: Normal signal flow void is seen in the major arterial structures at the skull base. Sinuses: No acute appearing sinus disease. Bones: No focal pathologic appearing marrow signal changes. Note is made of hyperostosis frontalis interna. Other: None. IMPRESSION: 1. Negative noncontrast MRI of the brain. No acute abnormality. No infarct, mass, or hemorrhage. RADIA
--- NOTE | 2018-04-08 13:25 | DISCHARGE SUMMARY ---
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 Hyperlipidemia (E78.5) Statin sent to the pharmacy, but patient refused the dose, so changed to 40mg daily. Visual disturbance (H53.9) chronic, recommend follow up. Expressive aphasia (R47.01) resolved. Left facial numbness (R20.0) resolved. Palpitations (R00.2) chronic, recommend staying hydrated. Multiple thyroid nodules (E04.2) stable, TSH was normal. Hypertension (I10) chronic, did not start any antihypertensives, recommend follow up. History of memory loss (Z87.898) chronic. History of migraine (Z86.69) chronic, stable. Alcohol abuse, daily use (F10.10) unclear as to the accuracy of this, patient denied daily use later. Medical non-compliance (Z91.19) Patient was very reluctant to medications, "since her friends have problems". CRP level checked as per her request, so she could see about starting the recommended statin. - HPI History of Present Illness: Shahida Sanchez is a 78 year old female with a past medical history of hyperlipidemia, nocturnal leg cramps, thyroid nodules, migraines, TIA, tremor, chronic back pain, and osteoporosis. She arrived in the ED via private car with a primary complaint of "feeling a little foggy" while driving. The patient states that she was in her usual state of health this morning and lunch, but for the past several weeks has noticed some visual disturbances in which she has a hard time focusing. When she relaxes her whole body, she can then see just fine. She also notes that for the past few months she can feel her heart racing just as she lies down to sleep, which does not cause her chest pain or tightness and resolves on its own. She states that she called her daughter after pulling the car off the road, who noted her mother to be slurring her words, and could not get the words out. The patient states that she did not loose consciousness, had numbness/tingling to the corner of her left lips, felt anxious, mildly nauseated, slightly dizzy, and disorientated. The patient's daughter, Dione was actually on a walk about 5 minutes from her mother's car. She quickly got to the car, drove her home, but once they attempted to get into the house the dizziness persisted. She drove her mother to the ED. Once in the ED imaging including a neck/head CTA and a head CT were negative for any acute changes. All labs were unremarkable. Vital signs showed a slight elevation in blood pressure at 154/90. Upon my exam, of her symptoms had subsided and she is found to have neuro-focal deficits. She will be admitted to observation for further work up including a head MRI, and echocardiogram. - HOSPITAL COURSE Hospital Course: The patient was kept one night and ruled out for CVA. She was found to have a recurrent TIA and encouraged to follow medical recommendations of a daily statin. She was anxious to return home and was medically stable. - ALLERGIES Allergies/Adverse Reactions: Allergies Allergy/AdvReac Type Severity Reaction Status Date / Time No Known Drug Allergies Allergy Verified 04/07/18 15:23 - MEDICATIONS Home Medications: Ambulatory Orders Medication Instructions Recorded Confirmed Cyanocobalamin (Vitamin B-12) 1,000 mcg PO DAILY 04/25/17 04/07/18 [Vitamin B-12] Magnesium 250 mg PO DAILY 04/25/17 04/07/18 Phytonadione [Vitamin K] 100 mcg PO DAILY 04/25/17 04/07/18 Ubidecarenone [Co Q-10] 200 mg PO DAILY 04/25/17 04/07/18 Ascorbic Acid 1,000 mg PO DAILY 04/08/18 04/08/18 Aspirin Chewable [St Don 81 mg PO DAILY #30 tablet 04/08/18 Aspirin] Atorvastatin Calcium 40 mg PO DAILY #30 tablet 04/08/18 Krill/Om-3/Dha/Epa/Phospho/Ast 1 cap PO DAILY 04/08/18 04/08/18 [Krill Oil 500 mg Softgel] Resveratrol/Grape Skin Extract 1 tab PO DAILY 04/08/18 04/08/18 [Resveratrol 100 mg Tablet] - PHYSICAL EXAM AT DISCHARGE General Appearance: positive: No acute distress, Alert Eyes Bilateral: positive: Normal inspection, PERRL ENT: positive: ENT inspection nml, Pharynx nml, No signs of dehydration Neck: positive: Thyroid nml, No JVD, Trachea midline Respiratory: positive: Chest non-tender, No respiratory distress, Breath sounds nml Cardiovascular: positive: Regular rate & rhythm, No gallop, Systolic murmur Peripheral Pulses: positive: 2+ Abdomen: positive: Non-tender, No organomegaly, Nml bowel sounds, Other (rounded, soft) Back: positive: Nml inspection Skin: positive: Color nml, No rash, Warm, Dry Extremities: positive: Non-tender, Full ROM, Nml appearance, No pedal edema Neurologic/Psychiatric: positive: Oriented x3, CN's nml (2-12), Motor nml, Sensation nml, Mood/affect nml Reflexes: Bicep (R): 3+, Bicep (L): 3+ - LABS Result Diagrams: 04/08/18 05:23 04/08/18 05:23 - DIAGNOSTIC IMAGING Diagnostic Imaging Results: Prelim report reviewed, Final report reviewed - SEPSIS Current Stage of Sepsis: Ruled out - FOLLOW UP Follow Up: Disposition: Home, Self Care Prescriptions: Aspirin Chewable [St Don Aspirin] 81 mg PO DAILY #30 tablet Atorvastatin [Lipitor] 80 mg PO DAILY #30 tablet Additional Instructions or Follow Up instructions: You were admitted with stroke symptoms including dizziness, anxiety, nausea, left facial numbness, disorientation, and expressive aphasia. All imaging confirmed a TIA (transient ischemic attack), meaning that the presenting symptoms subsided without causing permanent damage. Reasons to take a STATIN drug and the effects on your vessels: Protection against plaque rupture: vessel wall injury. Regression of plaque lesions without a change in the vessel wall area: Shrinking the amount of plaque. Reduced CRP (C-reactive protein), thereby a reduction in inflammation: Inflammatory responses can interfere with normal blood flow. Reversal of endothelial dysfunction, balancing vasoconstriction and vasodilation: Preventing over-excitable vessels, which may dislodge the underlying plaque. Decreasing thrombogenicity, decreased platelet activation: Reducing helper cells from the site of injury. I have included pictures; but the main point is prevention of further TIA events. Please take a statin and a daily aspirin. Regarding your heart palpitations, please stay hydrated since we see no physical cause or rhythm cause of this. Please have your PCP order a sleep study to rule out sleep apnea. Please see your PCP within one week, your CRP is pending. - TIME SPENT Time Spent in Discharge (Minutes): 45
--- NOTE | 2018-04-08 13:42 | Discharge Plan ---
Discharge Plan Disposition: 01 Home, Self Care Condition: Good Prescriptions: Aspirin Chewable [St Don Aspirin] 81 mg PO DAILY #30 tablet Atorvastatin Calcium 40 mg PO DAILY #30 tablet Diet: Regular Activity Restrictions: No Restrictions Shower Restrictions: No Instruction Topics: Atorvastatin tablets, Aspirin ASA oral tablets, Meds Cholesterol, Cholesterol Control, Exercise Aerobic Healthy Heart, TIA, Foods Heart Healthy Additional Instructions or Follow Up instructions: You were admitted with stroke symptoms including dizziness, anxiety, nausea, left facial numbness, disorientation, and expressive aphasia. All imaging confirmed a TIA (transient ischemic attack), meaning that the presenting symptoms subsided without causing permanent damage. Reasons to take a STATIN drug and the effects on your vessels: Protection against plaque rupture: vessel wall injury. Regression of plaque lesions without a change in the vessel wall area: Shrinking the amount of plaque. Reduced CRP (C-reactive protein), thereby a reduction in inflammation: Inflammatory responses can interfere with normal blood flow. Reversal of endothelial dysfunction, balancing vasoconstriction and vasodilation: Preventing over-excitable vessels, which may dislodge the underlying plaque. Decreasing thrombogenicity, decreased platelet activation: Reducing helper cells from the site of injury. I have included pictures; but the main point is prevention of further TIA events. Please take a statin and a daily aspirin. Regarding your heart palpitations, please stay hydrated since we see no physical cause or rhythm cause of this. Please have your PCP order a sleep study to rule out sleep apnea. Please see your PCP within one week, your CRP is pending. No Smoking: If you smoke, Please STOP! Call for help. Follow-up with: Ivette Guo PA-C [Primary Care Provider] -
[2018-04-08 15:28] VITALS: BP 144/76
== END 2018-04-08 16:15 | disposition home or self-care (01) ==
LOC: ED 14:32 → MS2 18:00
PROVIDERS: ADMIT Nurse Practitioner; ATTEND Nurse Practitioner
DX: R40.2412 Glasgow coma scale score 13-15, at arrival to emergency department (principal); R29.700 NIHSS score 0; G45.9 Transient cerebral ischemic attack, unspecified; Z86.73 Personal history of transient ischemic attack (TIA), and cerebral infarction without residual deficits; E78.5 Hyperlipidemia, unspecified; H53.9 Unspecified visual disturbance; R00.2 Palpitations; E04.2 Nontoxic multinodular goiter; I10 Essential (primary) hypertension; R41.3 Other amnesia; G43.909 Migraine, unspecified, not intractable, without status migrainosus; Z91.19 Patient's noncompliance with other medical treatment and regimen; Z72.89 Other problems related to lifestyle; G89.29 Other chronic pain; M54.9 Dorsalgia, unspecified; M81.0 Age-related osteoporosis without current pathological fracture; K21.9 Gastro-esophageal reflux disease without esophagitis; R25.1 Tremor, unspecified; Z79.899 Other long term (current) drug therapy
CPT/HCPCS: 36415; 70450; 70496; 70498; 70551; 80053; 80061; 81001; 83036; 83605; 83690; 83735; 84100; 84443; 85025; 85651; 86140; 93005; 93306; 96360; 96361; 99284; 99285; A9270; G0378; Q9967; 81003; 83721; 87086

== ENCOUNTER 2018-04-14 10:13 | Emergency (ER) | payer MEDICARE ==
[2018-04-14 11:03] LABS: BASOPHILS % (AUTO) 0.7 %; EOSINOPHILS # (AUTO) 0.1 10^3/uL (0.0-0.7); EOSINOPHILS % (AUTO) 2.1 %; HGB - HEMOGLOBIN 15.2 g/dL (12.0-16.0); LYMPHOCYTES # (AUTO) 1.6 10^3/uL (1.5-3.5); LYMPHOCYTES % (AUTO) 28.7 %; MEAN CORPUSCULAR HEMOGLOBIN 30.9 pg (27.0-31.0); MEAN CORPUSCULAR HGB CONC 34.2 g/dL (32.0-36.0); MEAN CORPUSCULAR VOLUME 90.2 fL (81.0-99.0); MEAN PLATELET VOLUME 8.1 fL (7.9-10.8); MONOCYTES # (AUTO) 0.5 10^3/uL (0.0-1.0); NEUTROPHILS # (AUTO) 3.4 10^3/uL (1.5-6.6); NEUTROPHILS % (AUTO) 59.5 %; PLT - PLATELET COUNT 194 10^3/uL (130-450); RED BLOOD COUNT 4.93 10^6/uL (4.20-5.40); RED CELL DISTRIBUTION WIDTH 13.6 % (12.0-15.0); WHITE BLOOD COUNT 5.7 x10^3/uL (4.8-10.8)
[2018-04-14 11:14] LABS: ALBUMIN/GLOBULIN RATIO 1.4 (1.0-2.2); BILIRUBIN,TOTAL 0.8 mg/dL (0.2-1.0); CALCIUM 9.1 mg/dL (8.5-10.3); CREATININE 0.6 mg/dL (0.4-1.0); TOTAL PROTEIN 6.9 g/dL (6.7-8.2)
[2018-04-14] MEDS ORDERED: SODIUM CHLORIDE 0.9% 1,000 ML IV ONE (12:09)
--- NOTE | 2018-04-14 12:13 | ED Physician Documentation ---
History of Present Illness - Stated complaint Stated Complaint: LIGHTHEADED/FUZZY TOUNGE - Chief complaint Chief Complaint: Neuro - History obtained from History obtained from: Patient - History of Present Illness Timing: Today - Additonal information Additional information: 78-year-old female was seen in the emergency department and admitted in the hospital last week with a TIA has felt that she has been dehydrated and over this past week she has been drinking 3 quarts of fluid per day. She awoke yesterday morning feeling that she was well hydrated and felt quite well. This morning she went to get up and felt lightheaded and dizzy. She denies feeling similar to what she did last week when she had the TIA as far as specific symptoms and states that she became very concerned when this happened and has come to the emergency department today for reevaluation. She denies getting up multiple times in the night to go to the bathroom, she denies any fever, she denies any rapid respirations, she denies any history of diabetes and she is not taking any medications. Her symptoms are resolved at this time. She is coming today here by her daughter and the patient herself states that she has been trying to lose weight by dieting and she has not made much progress on this yet. Review of Systems Constitutional: denies: Fever, Chills, Myalgias, Fatigue Eyes: denies: Decreased vision Ears: denies: Ear pain Nose: denies: Rhinorrhea / runny nose, Congestion Throat: denies: Sore throat Cardiac: denies: Chest pain / pressure, Palpitations Respiratory: denies: Dyspnea, Cough GI: denies: Abdominal Pain, Nausea, Vomiting, Constipation, Diarrhea : denies: Dysuria, Frequency Skin: denies: Rash Musculoskeletal: denies: Neck pain, Back pain, Extremity pain Neurologic: reports: Near syncope. denies: Generalized weakness, Focal weakness, Numbness, Difficulty speaking, Syncope, Seizure, Confused, Altered mental status, Headache, Head injury, LOC PD PAST MEDICAL HISTORY - Past Medical History Cardiovascular: Hypertension, High cholesterol Respiratory: None Neuro: Dementia, TIA, Headaches, Migraines, Tremors Endocrine/Autoimmune: None GI: GERD NURSE ASSESSOR: None : Nocturia, Frequency HEENT: Chronic sinusitis Psych: None Musculoskeletal: Chronic back pain Derm: None - Past Surgical History Past Surgical History: Yes /NURSE ASSESSOR: Tubal ligation, Other HEENT: Tonsil/Adenoidectomy - Present Medications Home Medications: Ambulatory Orders Medication Instructions Recorded Confirmed Cyanocobalamin (Vitamin B-12) 1,000 mcg PO DAILY 04/25/17 04/07/18 [Vitamin B-12] Magnesium 250 mg PO DAILY 04/25/17 04/07/18 Phytonadione [Vitamin K] 100 mcg PO DAILY 04/25/17 04/07/18 Ubidecarenone [Co Q-10] 200 mg PO DAILY 04/25/17 04/07/18 Ascorbic Acid 1,000 mg PO DAILY 04/08/18 04/08/18 Aspirin Chewable [St Don 81 mg PO DAILY #30 tablet 04/08/18 Aspirin] Krill/Om-3/Dha/Epa/Phospho/Ast 1 cap PO DAILY 04/08/18 04/08/18 [Krill Oil 500 mg Softgel] Resveratrol/Grape Skin Extract 1 tab PO DAILY 04/08/18 04/08/18 [Resveratrol 100 mg Tablet] - Allergies Allergies/Adverse Reactions: Allergies Allergy/AdvReac Type Severity Reaction Status Date / Time No Known Drug Allergies Allergy Verified 04/14/18 10:23 - Social History Does the pt smoke?: No Smoking Status: Never smoker Does the pt drink ETOH?: Yes Does the pt have substance abuse?: No - Immunizations Immunizations are current?: Yes - POLST Patient has POLST: No POLST Status: Full Code PD ED PE NORMAL - Vitals Vital signs reviewed: Yes (hypertensive ) - General General: Alert and oriented X 3, No acute distress, Well developed/nourished - HEENT HEENT: Atraumatic, PERRL, EOMI, Ears normal, Moist mucous membranes, Pharynx benign, Dentition benign - Neck Neck: Supple, no meningeal sign, No bony TTP - Cardiac Cardiac: RRR, No murmur - Respiratory Respiratory: No respiratory distress, Clear bilaterally - Abdomen Abdomen: Soft, Non tender - Back Back: No CVA TTP - Derm Derm: Normal color, Warm and dry, No rash, Other (poor skin tugor) - Extremities Extremities: No deformity, No edema - Neuro Neuro: Alert and oriented X 3, human resources specialist 2-12 intact, No motor deficit, No sensory deficit, Normal speech Eye Opening: Spontaneous Motor: Obeys Commands Verbal: Oriented GCS Score: 15 - Psych Psych: Normal mood, Normal affect Results - Vitals Vitals: Vital Signs - 24 hr 04/14/18 04/14/18 04/14/18 10:18 12:23 13:03 Temperature 36.9 C Heart Rate 64 62 70 Respiratory 16 18 16 Rate Blood Pressure 159/98 H 161/88 H 146/74 H O2 Saturation 99 97 95 Oxygen O2 Source Room air - EKG (time done) 1023 Rate: Rate (enter#) (57) Rhythm: NSR Ischemia: Normal ST segments Compare to prior EKG: Unchanged from prior EKG (SPT 04-07-18 no significant change. ) Computer interpretation: Agree with computer - Labs Labs: Laboratory Tests 04/14/18 04/14/18 04/14/18 10:21 10:55 10:55 WBC 5.7 RBC 4.93 Hgb 15.2 Hct 44.4 MCV 90.2 MCH 30.9 MCHC 34.2 RDW 13.6 Plt Count 194 MPV 8.1 Neut # (Auto) 3.4 Lymph # (Auto) 1.6 [place] # (Auto) 0.5 Eos # (Auto) 0.1 Baso # (Auto) 0.0 Absolute Nucleated RBC 0.00 Nucleated RBC % 0.1 Sodium 138 Potassium 3.7 Chloride 101 Carbon Dioxide 24 Anion Gap 13.0 BUN 12 Creatinine 0.6 Estimated GFR (MDRD) 97 Glucose 100 POC Whole Bld Glucose 95 Calcium 9.1 Total Bilirubin 0.8 AST 25 ALT 23 Alkaline Phosphatase 72 Troponin I Total Protein 6.9 Albumin 4.0 Globulin 2.9 Albumin/Globulin Ratio 1.4 Lipase 42 Urine Color Urine Clarity Urine pH Ur Specific [place] Urine Protein Urine Glucose (UA) Urine Ketones Urine Occult Blood Urine Nitrite Urine Bilirubin Urine Urobilinogen Ur Leukocyte Esterase Ur Microscopic Review Urine Culture Comments 04/14/18 04/14/18 10:55 12:20 WBC RBC Hgb Hct MCV MCH MCHC RDW Plt Count MPV Neut # (Auto) Lymph # (Auto) [place] # (Auto) Eos # (Auto) Baso # (Auto) Absolute Nucleated RBC Nucleated RBC % Sodium Potassium Chloride Carbon Dioxide Anion Gap BUN Creatinine Estimated GFR (MDRD) Glucose POC Whole Bld Glucose Calcium Total Bilirubin AST ALT Alkaline Phosphatase Troponin I < 0.04 Total Protein Albumin Globulin Albumin/Globulin Ratio Lipase Urine Color LT. YELLOW Urine Clarity CLEAR Urine pH 6.0 Ur Specific [place] <=1.005 Urine Protein NEGATIVE Urine Glucose (UA) NEGATIVE Urine Ketones NEGATIVE Urine Occult Blood TRACE-INTA Urine Nitrite NEGATIVE Urine Bilirubin NEGATIVE Urine Urobilinogen 0.2 (NORMAL) Ur Leukocyte Esterase NEGATIVE Ur Microscopic Review NOT INDICATED Urine Culture Comments NOT INDICATED Procedures - IVC sono (time) 1155 Bedside IVC sono: IVC measures (cm) (1.2), IVC collapsed c insp (cm) (complete), Dehydration (est 1 liter deficit) 1351 Bedside IVC sono: IVC measures (cm) (1.59), IVC collapsed c insp (cm) (0.83), Euvolemia PD MEDICAL DECISION MAKING - ED course Complexity details: reviewed old records, reviewed results, re-evaluated patient, considered differential, d/w patient, d/w family ED course: 78-year-old female with a recent admission for TIA is found to be dehydrated today on interrogation of her inferior vena cava. This is despite the fact that she has been drinking 3 quarts of fluid per day for the past week. She does have poor skin turgor and an IV is begun she is administered normal saline. Interestingly we have found that her urine specific gravity is low despite this level of dehydration. On further questioning with her on her supplements she is taking some resveratrol (grape seed extract) which can act as a diuretic. She reports that she only been taking this about 2 weeks ago and I wonder if she became dehydrated with the use of this initially resulting in her TIA. I have asked patient to stop this and we have provided IV saline and we have rechecked her IVC and she is now euvolemic. Departure - Departure Disposition: 01 Home, Self Care Clinical Impression: Dehydration Condition: Stable Instructions: ED Dehydration Follow-Up: Ivette Guo PA-C [Primary Care Provider] - Comments: Today it appears you are dehydrated and this likely explains her symptoms of feeling lightheaded and dizzy. We did find that your urine was dilute and this is not usual in dehydration and less there is some exogenous reason. I suspect the reason for this is the resveratrol that is acting as a diuretic. Stop taking the resveratrol and drink an adequate amount of fluid about 2 quarts per day.
[2018-04-14 12:35] LABS: BILIRUBIN,URINE NEGATIVE (NEGATIVE); CLARITY,URINE CLEAR (CLEAR); GLUCOSE, URINE (UA) NEGATIVE (NEGATIVE); KETONES,URINE (UA) NEGATIVE (NEGATIVE); LEUKOCYTE ESTERASE, URINE NEGATIVE (NEGATIVE); NITRITE,URINE NEGATIVE (NEGATIVE); OCCULT BLOOD,URINE TRACE-INTA (NEGATIVE); PROTEIN,URINE NEGATIVE (NEGATIVE); UROBILINOGEN,URINE 0.2 (NORMAL) E.U./dL (NORMAL)
[2018-04-14 14:05] VITALS: BP 170/86
== END 2018-04-14 14:07 | disposition home or self-care (01) ==
LOC: ED 10:13
DX: E86.0 Dehydration (principal); I10 Essential (primary) hypertension; E78.00 Pure hypercholesterolemia, unspecified; F03.90 Unspecified dementia, unspecified severity, without behavioral disturbance, psychotic disturbance, mood disturbance, and anxiety; Z86.73 Personal history of transient ischemic attack (TIA), and cerebral infarction without residual deficits; Z79.82 Long term (current) use of aspirin
CPT/HCPCS: 36415; 80053; 81001; 81003; 83690; 84484; 85025; 87086; 93005; 96360; 99284

== ENCOUNTER 2018-04-16 14:32 | Outpatient (CLI) | payer MEDICARE | END 2018-04-16 14:33 | disposition home or self-care (01) | LOC: LAB.F 14:32 | PROVIDERS: ATTEND Physician Assistant Medical | DX: Z53.9 Procedure and treatment not carried out, unspecified reason (principal) ==

== ENCOUNTER 2018-05-22 11:19 | Emergency (ER) | payer MEDICARE ==
--- NOTE | 2018-05-22 12:07 | ED Physician Documentation ---
PD HPI FOCAL NEURO - Stated complaint Stated Complaint: CONFUSION/WEAKNESS - Chief complaint Chief Complaint: Neuro - History obtained from History obtained from: Patient - History of Present Illness Timing - onset: Today (78-year-old woman with like a transient global amnesia in April of last year and a TIA last month. She was thoroughly imaged including angiography of the head and neck and MRI of the brain last month which were negative. This morning she woke up and was just very confused. She could not realize why she had to remote controls on her table and just did not understand what was going on around her house. She did make a phone call and per report she was talking normally at the time. She is feeling mostly but not completely better now, she does have a mild bitemporal headache.) Review of Systems Ten Systems: 10 systems reviewed and negative Constitutional: reports: Reviewed and negative Nose: reports: Reviewed and negative Throat: reports: Reviewed and negative Cardiac: reports: Reviewed and negative PD PAST MEDICAL HISTORY - Past Medical History Cardiovascular: Hypertension, High cholesterol Respiratory: None Neuro: Dementia, TIA, Headaches, Migraines, Tremors Endocrine/Autoimmune: None GI: GERD LINE CONSTRUCTION ENGINEER: None : Nocturia, Frequency HEENT: Chronic sinusitis Psych: None Musculoskeletal: Chronic back pain Derm: None - Past Surgical History Past Surgical History: Yes /LINE CONSTRUCTION ENGINEER: Tubal ligation, Other HEENT: Tonsil/Adenoidectomy - Present Medications Home Medications: Ambulatory Orders Medication Instructions Recorded Confirmed Cyanocobalamin (Vitamin B-12) 1,000 mcg PO DAILY 04/25/17 04/07/18 [Vitamin B-12] Magnesium 250 mg PO DAILY 04/25/17 04/07/18 Phytonadione [Vitamin K] 100 mcg PO DAILY 04/25/17 04/07/18 Ubidecarenone [Co Q-10] 200 mg PO DAILY 04/25/17 04/07/18 Ascorbic Acid 1,000 mg PO DAILY 04/08/18 04/08/18 Aspirin Chewable [St Don 81 mg PO DAILY #30 tablet 04/08/18 Aspirin] Krill/Om-3/Dha/Epa/Phospho/Ast 1 cap PO DAILY 04/08/18 04/08/18 [Krill Oil 500 mg Softgel] Resveratrol/Grape Skin Extract 1 tab PO DAILY 04/08/18 04/08/18 [Resveratrol 100 mg Tablet] - Allergies Allergies/Adverse Reactions: Allergies Allergy/AdvReac Type Severity Reaction Status Date / Time No Known Drug Allergies Allergy Verified 04/14/18 10:23 - Social History Does the pt smoke?: No Smoking Status: Never smoker Does the pt drink ETOH?: Yes Does the pt have substance abuse?: No - Immunizations Immunizations are current?: Yes - POLST Patient has POLST: No POLST Status: Full Code PD ED PE NORMAL - Vitals Vital signs reviewed: Yes - General General: Alert and oriented X 3, No acute distress - HEENT HEENT: PERRL, EOMI - Neck Neck: Supple, no meningeal sign, No bony TTP - Cardiac Cardiac: RRR, No murmur - Respiratory Respiratory: No respiratory distress, Clear bilaterally - Abdomen Abdomen: Non tender - Back Back: No CVA TTP, No spinal TTP - Derm Derm: Normal color, Warm and dry - Extremities Extremities: No edema, No calf tenderness / cord - Neuro Neuro: Alert and oriented X 3, community health nurse 2-12 intact Eye Opening: Spontaneous Motor: Obeys Commands Verbal: Oriented GCS Score: 15 NIHSS - Time Time: 12:05 - Level of Consciousness Level of consciousness: (0) Alert, Keenly responsive LOC Questions: (0) Answers both Q's correct LOC Commands: (0) Performs both correctly - Gaze Best Gaze: (0) Normal - Visual Visual: (0) No loss - Facial Palsy Facial Palsy: (0) Normal, symmetrical movement - Motor Arms (both separate) Motor Arm (right): (0) No drift Motor Arm (left): (0) No drift - Motor Legs (both separate) Motor Leg (right): (0) No drift Motor Leg (left): (0) No drift - Limb Ataxia Limb Ataxia: (0) Absent - Sensory Sensory: (0) Normal - Best Language Best Language: (0) No aphasia - Dysarthria Dysarthria: (0) Normal - Extinction and Inattention (formally neg Extinction and inattention: (0) No abnormality - Total Score/Results Total Score/Result: 0 Results - Vitals Vitals: Vital Signs - 24 hr 05/22/18 05/22/18 11:29 11:58 Temperature 35.7 C L Heart Rate 70 Respiratory 14 17 Rate Blood Pressure 143/102 H O2 Saturation 98 Oxygen O2 Source Room air - Labs Labs: Laboratory Tests 05/22/18 05/22/18 05/22/18 11:35 12:20 12:20 WBC 6.9 RBC 5.19 Hgb 15.8 Hct 46.2 MCV 89.1 MCH 30.5 MCHC 34.2 RDW 14.2 Plt Count 220 MPV 7.9 Neut # (Auto) 4.0 Lymph # (Auto) 2.1 [place] # (Auto) 0.6 Eos # (Auto) 0.1 Baso # (Auto) 0.1 Absolute Nucleated RBC 0.00 Nucleated RBC % 0.1 ESR Sodium 141 Potassium 3.8 Chloride 103 Carbon Dioxide 25 Anion Gap 13.0 BUN 8 Creatinine 0.8 Estimated GFR (MDRD) 69 L Glucose 92 POC Whole Bld Glucose 89 Calcium 9.3 Total Bilirubin 0.9 AST 25 ALT 18 Alkaline Phosphatase 82 Troponin I Total Protein 7.6 Albumin 4.5 Globulin 3.1 Albumin/Globulin Ratio 1.5 Lipase 46 Urine Color Urine Clarity Urine pH Ur Specific [place] Urine Protein Urine Glucose (UA) Urine Ketones Urine Occult Blood Urine Nitrite Urine Bilirubin Urine Urobilinogen Ur Leukocyte Esterase Ur Microscopic Review Urine Culture Comments 05/22/18 05/22/18 05/22/18 12:20 12:20 12:32 WBC RBC Hgb Hct MCV MCH MCHC RDW Plt Count MPV Neut # (Auto) Lymph # (Auto) [place] # (Auto) Eos # (Auto) Baso # (Auto) Absolute Nucleated RBC Nucleated RBC % ESR 5 Sodium Potassium Chloride Carbon Dioxide Anion Gap BUN Creatinine Estimated GFR (MDRD) Glucose POC Whole Bld Glucose Calcium Total Bilirubin AST ALT Alkaline Phosphatase Troponin I < 0.04 Total Protein Albumin Globulin Albumin/Globulin Ratio Lipase Urine Color YELLOW Urine Clarity CLEAR Urine pH 7.5 Ur Specific [place] 1.010 Urine Protein NEGATIVE Urine Glucose (UA) NEGATIVE Urine Ketones NEGATIVE Urine Occult Blood TRACE-LYSE Urine Nitrite NEGATIVE Urine Bilirubin NEGATIVE Urine Urobilinogen 0.2 (NORMAL) Ur Leukocyte Esterase NEGATIVE Ur Microscopic Review NOT INDICATED Urine Culture Comments NOT INDICATED PD MEDICAL DECISION MAKING - ED course ED course: This is a 78-year-old woman with what sounds 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 She has had thorough cranial imaging in the last year which was all negative. Her workup was negative here and her examination is normal and she felt comfortable with discharge. Departure - Departure Disposition: 01 Home, Self Care Clinical Impression: Transient global amnesia Condition: Good Record reviewed to determine appropriate education?: Yes Comments: Call your doctor to arrange a follow-up appointment, make the next available appointment. In the interim, return anytime if worse or if new symptoms develop. Your blood pressure was elevated today on check into the emergency department. This does not mean that you have hypertension, it is a common phenomenon to come to the emergency department and have elevated blood pressure. I recommend that you see your primary care physician within the week to have it rechecked when you are feeling better. As discussed I do recommend taking a baby aspirin a day. You can discuss statins with your doctor.
[2018-05-22] MEDS ORDERED: ASPIRIN CHEW 81 MG TABLET PO STA (12:18)
[2018-05-22 12:30] LABS: BASOPHILS # (AUTO) 0.1 10^3/uL (0.0-0.1); EOSINOPHILS # (AUTO) 0.1 10^3/uL (0.0-0.7); EOSINOPHILS % (AUTO) 1.8 %; HGB - HEMOGLOBIN 15.8 g/dL (12.0-16.0); LYMPHOCYTES # (AUTO) 2.1 10^3/uL (1.5-3.5); LYMPHOCYTES % (AUTO) 29.9 %; MEAN CORPUSCULAR HEMOGLOBIN 30.5 pg (27.0-31.0); MEAN CORPUSCULAR HGB CONC 34.2 g/dL (32.0-36.0); MEAN CORPUSCULAR VOLUME 89.1 fL (81.0-99.0); MEAN PLATELET VOLUME 7.9 fL (7.9-10.8); MONOCYTES # (AUTO) 0.6 10^3/uL (0.0-1.0); MONOCYTES % (AUTO) 9.2 %; NEUTROPHILS % (AUTO) 58.1 %; PLT - PLATELET COUNT 220 10^3/uL (130-450); RED BLOOD COUNT 5.19 10^6/uL (4.20-5.40); RED CELL DISTRIBUTION WIDTH 14.2 % (12.0-15.0); WHITE BLOOD COUNT 6.9 x10^3/uL (4.8-10.8)
[2018-05-22 12:45] LABS: BILIRUBIN,URINE NEGATIVE (NEGATIVE); GLUCOSE, URINE (UA) NEGATIVE (NEGATIVE); KETONES,URINE (UA) NEGATIVE (NEGATIVE); LEUKOCYTE ESTERASE, URINE NEGATIVE (NEGATIVE); NITRITE,URINE NEGATIVE (NEGATIVE); OCCULT BLOOD,URINE TRACE-LYSE (NEGATIVE); PH,URINE 7.5 PH (5.0-7.5); PROTEIN,URINE NEGATIVE (NEGATIVE); UROBILINOGEN,URINE 0.2 (NORMAL) E.U./dL (NORMAL)
[2018-05-22 12:47] LABS: CLARITY,URINE CLEAR (CLEAR)
[2018-05-22 13:07] LABS: ALBUMIN 4.5 g/dL (3.2-5.5); ALBUMIN/GLOBULIN RATIO 1.5 (1.0-2.2); BILIRUBIN,TOTAL 0.9 mg/dL (0.2-1.0); CALCIUM 9.3 mg/dL (8.5-10.3); CREATININE 0.8 mg/dL (0.4-1.0); TOTAL PROTEIN 7.6 g/dL (6.7-8.2)
[2018-05-22 13:23] VITALS: BP 154/86
== END 2018-05-22 13:22 | disposition home or self-care (01) ==
LOC: ED 11:19
DX: G45.4 Transient global amnesia (principal); I10 Essential (primary) hypertension; E78.00 Pure hypercholesterolemia, unspecified; F03.90 Unspecified dementia, unspecified severity, without behavioral disturbance, psychotic disturbance, mood disturbance, and anxiety; Z86.73 Personal history of transient ischemic attack (TIA), and cerebral infarction without residual deficits; Z79.82 Long term (current) use of aspirin
CPT/HCPCS: 36415; 80053; 81003; 83690; 84484; 85025; 85651; 99283; A9270; 81001; 87086

== ENCOUNTER 2018-08-12 09:00 | Outpatient (CLI) | payer SELFPAY | END 2018-08-12 09:01 | disposition EMS.NT | LOC: EMS 09:00 | PROVIDERS: ATTEND Surgery | DX: R07.9 Chest pain, unspecified (principal) ==

== ENCOUNTER 2018-08-15 17:42 | Outpatient (CLI) | payer MEDICARE ==
[2018-08-15 18:06] LABS: BASOPHILS # (AUTO) 0.1 10^3/uL (0.0-0.1); BASOPHILS % (AUTO) 0.9 %; EOSINOPHILS # (AUTO) 0.2 10^3/uL (0.0-0.7); EOSINOPHILS % (AUTO) 2.9 %; HGB - HEMOGLOBIN 14.6 g/dL (12.0-16.0); LYMPHOCYTES # (AUTO) 2.2 10^3/uL (1.5-3.5); LYMPHOCYTES % (AUTO) 31.6 %; MEAN CORPUSCULAR HEMOGLOBIN 30.2 pg (27.0-31.0); MEAN CORPUSCULAR HGB CONC 33.2 g/dL (32.0-36.0); MEAN PLATELET VOLUME 7.4 fL (7.9-10.8); MONOCYTES # (AUTO) 0.7 10^3/uL (0.0-1.0); NEUTROPHILS # (AUTO) 3.8 10^3/uL (1.5-6.6); NEUTROPHILS % (AUTO) 54.6 %; PLT - PLATELET COUNT 231 10^3/uL (130-450); RED BLOOD COUNT 4.84 10^6/uL (4.20-5.40); RED CELL DISTRIBUTION WIDTH 13.9 % (12.0-15.0); WHITE BLOOD COUNT 6.9 x10^3/uL (4.8-10.8)
== END 2018-08-15 17:43 | disposition home or self-care (01) ==
LOC: LAB 17:42
PROVIDERS: ATTEND Nurse Practitioner
DX: R07.89 Other chest pain (principal)
CPT/HCPCS: 36415; 82553; 85025; 85379; 85651; 86140

== ENCOUNTER 2018-10-29 15:23 | Outpatient (CLI) | payer MEDICARE | END 2018-10-29 15:24 | disposition critical access hospital (66) | LOC: EMS 15:23 | PROVIDERS: ATTEND Surgery | DX: R42 Dizziness and giddiness (principal); R41.0 Disorientation, unspecified; R20.0 Anesthesia of skin | CPT/HCPCS: A0425; A0427 ==

== ENCOUNTER 2018-10-29 15:47 | Emergency (ER) | payer MEDICARE ==
--- NOTE | 2018-10-29 16:08 | ED Physician Documentation ---
PD HPI FOCAL NEURO - Stated complaint Stated Complaint: NEAR SYNCOPE - Chief complaint Chief Complaint: Neuro - History obtained from History obtained from: Patient - History of Present Illness Timing - onset: Today (This is a 78-year-old woman who has had a few episodes of transient global amnesia. Today she was at the store in her usual state of health and started to get confused about which she was buying. Subsequent to that she feels normal but she Still feels like her tongue is thick. There is no associated headache. She is walking fine.) Review of Systems Ten Systems: 10 systems reviewed and negative Constitutional: denies: Fever, Chills Cardiac: denies: Chest pain / pressure, Palpitations Respiratory: denies: Dyspnea, Cough GI: denies: Abdominal Pain PD PAST MEDICAL HISTORY - Past Medical History Cardiovascular: Hypertension, High cholesterol Respiratory: None Neuro: Dementia, TIA, Headaches, Migraines, Tremors Endocrine/Autoimmune: None GI: GERD REGIONAL TRANSFER LIAISON: None : Nocturia, Frequency HEENT: Chronic sinusitis Psych: None Musculoskeletal: Chronic back pain Derm: None - Past Surgical History Past Surgical History: Yes /REGIONAL TRANSFER LIAISON: Tubal ligation, Other HEENT: Tonsil/Adenoidectomy - Present Medications Home Medications: Ambulatory Orders Medication Instructions Recorded Confirmed RX: Cyanocobalamin (Vitamin B-12) 1,000 mcg PO DAILY 04/25/17 04/07/18 [Vitamin B-12] RX: Magnesium 250 mg PO DAILY 04/25/17 04/07/18 RX: Phytonadione [Vitamin K] 100 mcg PO DAILY 04/25/17 04/07/18 RX: Ubidecarenone [Co Q-10] 200 mg PO DAILY 04/25/17 04/07/18 RX: Ascorbic Acid 1,000 mg PO DAILY 04/08/18 04/08/18 RX: Aspirin Chewable [St Don 81 mg PO DAILY #30 tablet 04/08/18 Aspirin] RX: Krill/Om-3/Dha/Epa/Phospho/Ast 1 cap PO DAILY 04/08/18 04/08/18 [Krill Oil 500 mg Softgel] RX: Resveratrol/Grape Skin Extract 1 tab PO DAILY 04/08/18 04/08/18 [Resveratrol 100 mg Tablet] - Allergies Allergies/Adverse Reactions: Allergies Allergy/AdvReac Type Severity Reaction Status Date / Time No Known Drug Allergies Allergy Verified 10/29/18 15:58 - Social History Does the pt smoke?: No Smoking Status: Never smoker Does the pt drink ETOH?: Yes Does the pt have substance abuse?: No - Family History Family history: reports: Non contributory - Immunizations Immunizations are current?: Yes - POLST Patient has POLST: No POLST Status: Full Code PD ED PE NORMAL - Vitals Vital signs reviewed: Yes - General General: Alert and oriented X 3, No acute distress - HEENT HEENT: Moist mucous membranes, Pharynx benign - Neck Neck: Supple, no meningeal sign, No bony TTP - Cardiac Cardiac: RRR, No murmur - Respiratory Respiratory: No respiratory distress, Clear bilaterally - Abdomen Abdomen: Soft, Non tender - Back Back: No CVA TTP, No spinal TTP - Derm Derm: Normal color, Warm and dry - Extremities Extremities: No edema, No calf tenderness / cord - Neuro Neuro: Alert and oriented X 3 (She is able to state the date, her address, which store she was at.), Normal speech Eye Opening: Spontaneous Motor: Obeys Commands Verbal: Oriented GCS Score: 15 - Psych Psych: Normal mood, Normal affect NIHSS - Time Time: 16:00 - Level of Consciousness Level of consciousness: (0) Alert, Keenly responsive LOC Questions: (0) Answers both Q's correct LOC Commands: (0) Performs both correctly - Gaze Best Gaze: (0) Normal - Visual Visual: (0) No loss - Facial Palsy Facial Palsy: (0) Normal, symmetrical movement - Motor Arms (both separate) Motor Arm (right): (0) No drift Motor Arm (left): (0) No drift - Motor Legs (both separate) Motor Leg (right): (0) No drift Motor Leg (left): (0) No drift - Limb Ataxia Limb Ataxia: (0) Absent - Sensory Sensory: (0) Normal - Best Language Best Language: (0) No aphasia - Dysarthria Dysarthria: (0) Normal - Extinction and Inattention (formally neg Extinction and inattention: (0) No abnormality - Total Score/Results Total Score/Result: 0 Results - Vitals Vitals: Vital Signs - 24 hr 10/29/18 10/29/18 15:54 17:29 Temperature 36.6 C Heart Rate 65 89 Respiratory 18 19 Rate Blood Pressure 111/95 H 119/67 O2 Saturation 96 98 Oxygen O2 Source Room air - Labs Labs: Laboratory Tests 10/29/18 10/29/18 10/29/18 16:15 16:15 16:25 WBC 7.0 RBC 4.59 Hgb 14.1 Hct 42.9 MCV 93.5 MCH 30.7 MCHC 32.9 RDW 13.2 Plt Count 199 MPV 9.5 Neut # (Auto) 4.0 Lymph # (Auto) 2.1 [place] # (Auto) 0.6 Eos # (Auto) 0.3 Baso # (Auto) 0.1 Absolute Nucleated RBC 0.00 Nucleated RBC % 0.0 Sodium 140 Potassium 3.6 Chloride 102 Carbon Dioxide 27 Anion Gap 11.0 BUN 14 Creatinine 0.8 Estimated GFR (MDRD) 69 L Glucose 109 H Calcium 9.0 Total Bilirubin 0.7 AST 18 ALT 16 Alkaline Phosphatase 68 Total Protein 6.7 Albumin 3.9 Globulin 2.8 Albumin/Globulin Ratio 1.4 Lipase 44 Urine Color YELLOW Urine Clarity CLEAR Urine pH 6.5 Ur Specific [place] <=1.005 Urine Protein NEGATIVE Urine Glucose (UA) NEGATIVE Urine Ketones NEGATIVE Urine Occult Blood TRACE-INTA Urine Nitrite NEGATIVE Urine Bilirubin NEGATIVE Urine Urobilinogen 0.2 (NORMAL) Ur Leukocyte Esterase NEGATIVE Ur Microscopic Review NOT INDICATED Urine Culture Comments NOT INDICATED PD MEDICAL DECISION MAKING - ED course Complexity details: reviewed old records (She has had thorough cranial imaging for similar complaints in the past including CT angiography of the head.neck and brain MRI without relevant positive findings.) ED course: 78-year-old woman with a mild episode of recurrent transient global amnesia, her examination is completely normal. She was offered observation cranial imaging, but declined and wanted to go home after reassurance. There is no evidence of stroke. Departure - Departure Disposition: 01 Home, Self Care Clinical Impression: Transient global amnesia Condition: Good Record reviewed to determine appropriate education?: Yes Instructions: ED Transient Ischemic Attack Comments: Do not drive today. Return for any new or worsening symptoms. Follow-up with your doctor. Discharge Date/Time: 10/29/18 17:29
[2018-10-29 16:23] LABS: BASOPHILS # (AUTO) 0.1 10^3/uL (0.0-0.1); BASOPHILS % (AUTO) 0.7 %; EOSINOPHILS # (AUTO) 0.3 10^3/uL (0.0-0.7); EOSINOPHILS % (AUTO) 3.6 %; HGB - HEMOGLOBIN 14.1 g/dL (12.0-16.0); LYMPHOCYTES # (AUTO) 2.1 10^3/uL (1.5-3.5); LYMPHOCYTES % (AUTO) 30.3 %; MEAN CORPUSCULAR HEMOGLOBIN 30.7 pg (27.0-31.0); MEAN CORPUSCULAR HGB CONC 32.9 g/dL (32.0-36.0); MEAN CORPUSCULAR VOLUME 93.5 fL (81.0-99.0); MEAN PLATELET VOLUME 9.5 fL (7.9-10.8); MONOCYTES # (AUTO) 0.6 10^3/uL (0.0-1.0); MONOCYTES % (AUTO) 8.2 %; NEUTROPHILS % (AUTO) 56.9 %; PLT - PLATELET COUNT 199 10^3/uL (130-450); RED BLOOD COUNT 4.59 10^6/uL (4.20-5.40); RED CELL DISTRIBUTION WIDTH 13.2 % (12.0-15.0)
[2018-10-29 16:35] LABS: ALBUMIN 3.9 g/dL (3.2-5.5); ALBUMIN/GLOBULIN RATIO 1.4 (1.0-2.2); BILIRUBIN,TOTAL 0.7 mg/dL (0.2-1.0); CREATININE 0.8 mg/dL (0.4-1.0); TOTAL PROTEIN 6.7 g/dL (6.7-8.2)
[2018-10-29 16:38] LABS: BILIRUBIN,URINE NEGATIVE (NEGATIVE); GLUCOSE, URINE (UA) NEGATIVE (NEGATIVE); KETONES,URINE (UA) NEGATIVE (NEGATIVE); LEUKOCYTE ESTERASE, URINE NEGATIVE (NEGATIVE); NITRITE,URINE NEGATIVE (NEGATIVE); OCCULT BLOOD,URINE TRACE-INTA (NEGATIVE); PH,URINE 6.5 PH (5.0-7.5); PROTEIN,URINE NEGATIVE (NEGATIVE); UROBILINOGEN,URINE 0.2 (NORMAL) E.U./dL (NORMAL)
[2018-10-29 16:46] LABS: CLARITY,URINE CLEAR (CLEAR)
[2018-10-29 17:32] VITALS: BP 119/67
== END 2018-10-29 17:29 | disposition home or self-care (01) ==
LOC: EDUNIT# → ED 15:47
DX: G45.4 Transient global amnesia (principal); Z86.73 Personal history of transient ischemic attack (TIA), and cerebral infarction without residual deficits; F03.90 Unspecified dementia, unspecified severity, without behavioral disturbance, psychotic disturbance, mood disturbance, and anxiety; I10 Essential (primary) hypertension; Z79.82 Long term (current) use of aspirin
CPT/HCPCS: 36415; 80053; 81001; 81003; 83690; 85025; 87086; 99283

== ENCOUNTER 2018-11-14 11:12 | Outpatient (CLI) | payer MEDICARE | END 2018-11-14 11:13 | disposition EMS.NT | LOC: EMS 11:12 | PROVIDERS: ATTEND Surgery | DX: F41.9 Anxiety disorder, unspecified (principal) ==

== ENCOUNTER 2018-12-18 14:21 | Outpatient (CLI) | payer MEDICARE | END 2018-12-18 14:22 | disposition short-term general hospital (02) | LOC: EMS 14:21 | PROVIDERS: ATTEND Surgery | DX: R41.82 Altered mental status, unspecified (principal); R51 Headache; R09.89 Other specified symptoms and signs involving the circulatory and respiratory systems | CPT/HCPCS: A0425; A0427 ==

== ENCOUNTER 2018-12-25 21:34 | Emergency (ER) | payer MEDICARE ==
--- NOTE | 2018-12-25 22:11 | ED Physician Documentation ---
History of Present Illness - Stated complaint Stated Complaint: HIGH BP/RT ARM PX - Chief complaint Chief Complaint: General - History obtained from History obtained from: Patient - Additonal information Additional information: This is a 78-year-old woman who presents with complaints that her blood pressure was high today as high as 166/102 and then approximately 7 hours prior to presentation she started to have an aching sensation in her right arm off and on. She was just hospitalized last week at [facility] overnight with the official diagnosis of transient global amnesia. She said her blood pressure was "ambulance high" at that time. She did not want to take any blood pressure medications so they did not dispense any when she was discharged home and she is trying to do lifestyle changes with changing her diet and increasing her exercise. The pain in the right arm is been there off and on for the past 7 hours but constant may be over the past hour. She felt a little bit nauseous r ight at the onset of all the symptoms and has had some heart palpitations related to some anxiety around that same time. Of note she just ordered a natural blood thinner called JOHN and took it for the first time today. She did that because she cannot tolerate aspirin due to abdominal distress. She denies shortness of breath or dizziness. Patient does have some thyroid nodules but the thyroid function is normal. She has been trying to increase her water intake since she was discharged from [facility] and has been monitoring her water intake and her blood pressures multiple times a day. She was referred to a neurologist and has an appointment later this month. She is been worked up with carotid ultrasounds and brain MRI without any findings. Review of Systems Constitutional: denies: Fever Eyes: reports: Other (Wears glasses) Ears: denies: Ear pain Nose: denies: Congestion Throat: denies: Sore throat Cardiac: reports: Palpitations. denies: Chest pain / pressure, Pedal edema Respiratory: denies: Dyspnea, Cough GI: reports: Nausea. denies: Vomiting, Diarrhea : denies: Dysuria Skin: denies: Rash Neurologic: reports: Other (Has had memory lapses that were associated with transient global amnesia but this is not an acute issue today). denies: Generalized weakness, Focal weakness Endocrine: reports: Other (She is not diabetic) PD PAST MEDICAL HISTORY - Past Medical History Cardiovascular: Hypertension, High cholesterol Respiratory: None Neuro: Dementia, TIA, Headaches, Migraines, Tremors Endocrine/Autoimmune: None GI: GERD JUNIOR ACCOUNTANT: None : Nocturia, Frequency HEENT: Chronic sinusitis Psych: None Musculoskeletal: Chronic back pain Derm: None - Past Surgical History Past Surgical History: Yes /JUNIOR ACCOUNTANT: Tubal ligation, Other HEENT: Tonsil/Adenoidectomy - Present Medications Home Medications: Ambulatory Orders Medication Instructions Recorded Confirmed Cyanocobalamin (Vitamin B-12) 1,000 mcg PO DAILY 04/25/17 04/07/18 [Vitamin B-12] Magnesium 250 mg PO DAILY 04/25/17 04/07/18 Phytonadione [Vitamin K] 100 mcg PO DAILY 04/25/17 04/07/18 Ubidecarenone [Co Q-10] 200 mg PO DAILY 04/25/17 04/07/18 Ascorbic Acid 1,000 mg PO DAILY 04/08/18 04/08/18 Aspirin Chewable [St Don 81 mg PO DAILY #30 tablet 04/08/18 Aspirin] Krill/Om-3/Dha/Epa/Phospho/Ast 1 cap PO DAILY 04/08/18 04/08/18 [Krill Oil 500 mg Softgel] Resveratrol/Grape Skin Extract 1 tab PO DAILY 04/08/18 04/08/18 [Resveratrol 100 mg Tablet] - Allergies Allergies/Adverse Reactions: Allergies Allergy/AdvReac Type Severity Reaction Status Date / Time No Known Drug Allergies Allergy Verified 12/25/18 21:46 - Social History Does the pt smoke?: No Smoking Status: Never smoker Does the pt drink ETOH?: Yes Does the pt have substance abuse?: No - Immunizations Immunizations are current?: Yes - POLST Patient has POLST: No POLST Status: Full Code PD ED PE NORMAL - Vitals Vital signs reviewed: Yes - General General: Alert and oriented X 3, No acute distress, Well developed/nourished, Other (Overweight) - HEENT HEENT: Atraumatic, PERRL, EOMI, Moist mucous membranes, Pharynx benign - Neck Neck: Supple, no meningeal sign, No adenopathy, No JVD - Cardiac Cardiac: RRR, No murmur, Strong equal pulses - Respiratory Respiratory: No respiratory distress, Clear bilaterally - Abdomen Abdomen: Normal bowel sounds, Soft, Non tender - Derm Derm: Normal color, Warm and dry, No rash - Extremities Extremities: No deformity, No edema - Neuro Neuro: Alert and oriented X 3, informatics analyst 2-12 intact, No motor deficit, No sensory deficit, Normal speech - Psych Psych: Normal mood, Normal affect Results - Vitals Vitals: Vital Signs - 24 hr 12/25/18 12/25/18 12/25/18 21:43 21:46 23:46 Temperature 36.4 C L Heart Rate 68 73 66 Respiratory 17 17 17 Rate Blood Pressure 173/87 H 173/87 H 143/79 H O2 Saturation 97 99 98 12/26/18 12/26/18 12/26/18 00:05 01:30 02:00 Temperature Heart Rate 61 63 71 Respiratory 17 17 16 Rate Blood Pressure 142/80 H 120/70 128/77 O2 Saturation 97 94 97 12/26/18 12/26/18 03:32 04:56 Temperature 36.6 C Heart Rate 73 71 Respiratory 20 17 Rate Blood Pressure 134/74 H 129/79 O2 Saturation 96 98 Oxygen O2 Source Room air - EKG (time done) 2150 Rate: Rate (enter#) (68) Rhythm: NSR Ischemia: Normal ST segments, Q waves (inferior) 0205 Rate: Rate (enter#) (63) Rhythm: NSR QRS: Poor R wave progression Ischemia: Normal ST segments, Non specific changes - Labs Labs: Laboratory Tests 12/25/18 12/25/18 12/25/18 22:23 22:23 22:23 WBC 7.8 RBC 4.74 Hgb 14.1 Hct 43.0 MCV 90.7 MCH 29.7 MCHC 32.8 RDW 13.2 Plt Count 213 MPV 9.5 Neut # (Auto) 4.2 Lymph # (Auto) 2.4 [place] # (Auto) 0.8 Eos # (Auto) 0.3 Baso # (Auto) 0.0 Absolute Nucleated RBC 0.00 Nucleated RBC % 0.0 PT 11.6 INR 1.0 Sodium 141 Potassium 3.7 Chloride 103 Carbon Dioxide 28 Anion Gap 10.0 BUN 20 Creatinine 0.6 Estimated GFR (MDRD) 97 Glucose 111 H Calcium 9.0 Total Bilirubin 0.7 AST 19 ALT 18 Alkaline Phosphatase 73 Troponin I High Sens Total Protein 6.7 Albumin 4.0 Globulin 2.7 Albumin/Globulin Ratio 1.5 Lipase 53 H 12/25/18 12/26/18 22:23 01:45 WBC RBC Hgb Hct MCV MCH MCHC RDW Plt Count MPV Neut # (Auto) Lymph # (Auto) [place] # (Auto) Eos # (Auto) Baso # (Auto) Absolute Nucleated RBC Nucleated RBC % PT INR Sodium Potassium Chloride Carbon Dioxide Anion Gap BUN Creatinine Estimated GFR (MDRD) Glucose Calcium Total Bilirubin AST ALT Alkaline Phosphatase Troponin I High Sens 92.7 H* 236.2 H* Total Protein Albumin Globulin Albumin/Globulin Ratio Lipase PD MEDICAL DECISION MAKING - ED course Complexity details: reviewed results, re-evaluated patient, d/w patient ED course: EKG had Q waves inferiorly which I do not know if they are old or new. Patient did not have any symptoms on her arrival here the pain achiness in the right arm was gone. Her troponin came back at over 90. Her blood pressure came down spontaneously on its own into the 120s. I discussed with her that it appears she may have had a heart attack and needs to be transferred. She had initially declined aspirin because it causes her stomach to be upset but when she heard the diagnosis she agreed to take 4 baby aspirin and I went ahead and started heparin. We wanted to send her back to [facility] but they do not have any beds. We contacted [facility] they recommended [facility] but they also do not have beds. We are searching for place to transfer the patient at this time. [facility] phoned back to say that they had secured a bed at [facility] and we are awaiting transport. Repeat tro and EKG pending. Departure - Departure Disposition: 02 Transfer Acute Care Hosp Clinical Impression: NSTEMI (non-ST elevated myocardial infarction) Condition: Good Discharge Date/Time: 12/26/18 05:10
[2018-12-25 22:31] LABS: BASOPHILS % (AUTO) 0.5 %; EOSINOPHILS # (AUTO) 0.3 10^3/uL (0.0-0.7); EOSINOPHILS % (AUTO) 3.9 %; HGB - HEMOGLOBIN 14.1 g/dL (12.0-16.0); LYMPHOCYTES # (AUTO) 2.4 10^3/uL (1.5-3.5); LYMPHOCYTES % (AUTO) 30.5 %; MEAN CORPUSCULAR HEMOGLOBIN 29.7 pg (27.0-31.0); MEAN CORPUSCULAR HGB CONC 32.8 g/dL (32.0-36.0); MEAN CORPUSCULAR VOLUME 90.7 fL (81.0-99.0); MEAN PLATELET VOLUME 9.5 fL (7.9-10.8); MONOCYTES # (AUTO) 0.8 10^3/uL (0.0-1.0); MONOCYTES % (AUTO) 10.2 %; NEUTROPHILS # (AUTO) 4.2 10^3/uL (1.5-6.6); NEUTROPHILS % (AUTO) 54.6 %; PLT - PLATELET COUNT 213 10^3/uL (130-450); RED BLOOD COUNT 4.74 10^6/uL (4.20-5.40); RED CELL DISTRIBUTION WIDTH 13.2 % (12.0-15.0); WHITE BLOOD COUNT 7.8 x10^3/uL (4.8-10.8)
[2018-12-25 22:35] LABS: PT - PROTHROMBIN TIME 11.6 secs (9.9-12.6)
[2018-12-25 22:45] LABS: ALBUMIN/GLOBULIN RATIO 1.5 (1.0-2.2); BILIRUBIN,TOTAL 0.7 mg/dL (0.2-1.0); CREATININE 0.6 mg/dL (0.4-1.0); TOTAL PROTEIN 6.7 g/dL (6.7-8.2)
[2018-12-25] MEDS ORDERED: ASPIRIN CHEW 81 MG TABLET PO STA (23:28)
[2018-12-25] MEDS ORDERED: HEPARIN 25000UNITS/500ML (D5W) 25,000 UNIT/500 ML BAG IV STA (23:31)
[2018-12-25] MEDS ORDERED: HEPARIN 5,000 UNIT/ML VIAL IVP STA (23:31)
[2018-12-26 04:57] VITALS: BP 129/79
== END 2018-12-26 05:10 | disposition short-term general hospital (02) ==
LOC: ED 21:34
DX: I21.4 Non-ST elevation (NSTEMI) myocardial infarction (principal); I10 Essential (primary) hypertension
CPT/HCPCS: 36415; 80053; 83690; 84484; 85025; 85610; 93005; 96374; 99284; 99285; A9270

== ENCOUNTER 2019-01-04 00:03 | Emergency (ER) | payer MEDICARE ==
--- NOTE | 2019-01-04 00:14 | ED Physician Documentation ---
History of Present Illness - Stated complaint Stated Complaint: LIGHTHEADED/BP CONCERN - Chief complaint Chief Complaint: Cardiac - Additonal information Additional information: This is a 79-year-old female with history of hypertension, migraines, and possible panic attacks, who presents with elevated blood pressure as well as some resolved chest pain. Patient states that this evening around 6 PM she took her blood pressure and it was somewhat elevated, so she took her metoprolol at 7 PM, when she rechecked her blood pressure it remained elevated, so she called into a nurse line, and she took her amlodipine as well. Her blood pressure continued to climb over several hours until it reached 170 systolic which prompted her visit here. Patient states that earlier in the evening she did have brief episode of chest pain which is cramping over her mid chest, she denies diaphoresis or nausea, the pain was nonradiating. Patient also states that she has had episodes for several months now where she will have some lightheadedness, particularly when she stands and walks around. She denies any weakness, numbness. No headache Review of Systems Constitutional: denies: Fever Eyes: denies: Loss of vision Cardiac: reports: Chest pain / pressure Respiratory: denies: Dyspnea GI: denies: Abdominal Pain, Vomiting Skin: denies: Rash Neurologic: denies: Focal weakness Immunocompromised: denies: Immunocompromised PD PAST MEDICAL HISTORY - Past Medical History Cardiovascular: Hypertension, High cholesterol Respiratory: None Neuro: Dementia, TIA, Headaches, Migraines, Tremors Endocrine/Autoimmune: None GI: GERD KELP GATHERER: None : Nocturia, Frequency HEENT: Chronic sinusitis Psych: None Musculoskeletal: Chronic back pain Derm: None - Past Surgical History Past Surgical History: Yes /KELP GATHERER: Tubal ligation, Other HEENT: Tonsil/Adenoidectomy - Present Medications Home Medications: Ambulatory Orders Medication Instructions Recorded Confirmed Cyanocobalamin (Vitamin B-12) 1,000 mcg PO DAILY 04/25/17 04/07/18 [Vitamin B-12] Magnesium 250 mg PO DAILY 04/25/17 04/07/18 Phytonadione [Vitamin K] 100 mcg PO DAILY 04/25/17 04/07/18 Ubidecarenone [Co Q-10] 200 mg PO DAILY 04/25/17 04/07/18 Ascorbic Acid 1,000 mg PO DAILY 04/08/18 04/08/18 Aspirin Chewable [St Don 81 mg PO DAILY #30 tablet 04/08/18 Aspirin] Krill/Om-3/Dha/Epa/Phospho/Ast 1 cap PO DAILY 04/08/18 04/08/18 [Krill Oil 500 mg Softgel] Resveratrol/Grape Skin Extract 1 tab PO DAILY 04/08/18 04/08/18 [Resveratrol 100 mg Tablet] - Allergies Allergies/Adverse Reactions: Allergies Allergy/AdvReac Type Severity Reaction Status Date / Time No Known Drug Allergies Allergy Verified 01/04/19 00:07 - Social History Does the pt smoke?: No Smoking Status: Never smoker Does the pt drink ETOH?: Yes Does the pt have substance abuse?: No - Immunizations Immunizations are current?: Yes - POLST Patient has POLST: No POLST Status: Full Code PD ED PE NORMAL - Vitals Vital signs reviewed: Yes - General General: Alert and oriented X 3, No acute distress - HEENT HEENT: PERRL - Neck Neck: Supple, no meningeal sign - Cardiac Cardiac: RRR - Respiratory Respiratory: No respiratory distress, Clear bilaterally - Abdomen Abdomen: Soft, Non tender, Non distended - Derm Derm: Warm and dry - Extremities Extremities: No deformity - Neuro Neuro: Alert and oriented X 3, induction coordination engineer 2-12 intact, No motor deficit, No sensory deficit, Normal speech - Psych Psych: Normal mood, Normal affect Results - Vitals Vitals: Vital Signs - 24 hr 01/04/19 01/04/19 01/04/19 00:07 00:34 01:11 Temperature 36.5 C Heart Rate 71 63 60 Respiratory 16 17 21 Rate Blood Pressure 172/98 H 142/78 H 145/91 H O2 Saturation 97 97 97 01/04/19 01/04/19 02:01 03:40 Temperature Heart Rate 60 61 Respiratory 14 16 Rate Blood Pressure 124/76 133/85 H O2 Saturation 98 96 Oxygen O2 Source Room air - EKG (time done) 00:15 Other comments: Other comments (Rate 66, rhythm sinus, there is no ST segment elevation or depression. 1 PVC seen. Borderline intraventricular conduction delay) - Labs Labs: Laboratory Tests 01/04/19 01/04/19 01/04/19 01:15 01:15 01:15 WBC 7.1 RBC 4.62 Hgb 14.2 Hct 42.3 MCV 91.6 MCH 30.7 MCHC 33.6 RDW 13.3 Plt Count 228 MPV 9.7 Neut # (Auto) 3.8 Lymph # (Auto) 2.2 [place] # (Auto) 0.6 Eos # (Auto) 0.4 Baso # (Auto) 0.1 Absolute Nucleated RBC 0.00 Nucleated RBC % 0.0 Sodium 141 Potassium 3.4 L Chloride 105 Carbon Dioxide 26 Anion Gap 10.0 BUN 19 Creatinine 0.7 Estimated GFR (MDRD) 81 L Glucose 124 H Calcium 8.9 Total Bilirubin 0.7 AST 18 ALT 17 Alkaline Phosphatase 66 Troponin I High Sens 5.6 Total Protein 6.5 L Albumin 3.8 Globulin 2.7 Albumin/Globulin Ratio 1.4 Lipase 51 - Rads (name of study) CXR Radiology: Other (Normal 2 view chest) PD MEDICAL DECISION MAKING - ED course Complexity details: considered differential (HTN, hypertensive emergency, orthostasis, dysrhytmia, ACS, PE) ED course: On exam patient is well appearing with a normal neuro exam and clear lungs. Pt's primary concern tonight is that her blood pressure was elevated despite taking her home meds. On my exam it is spontaneously down to 150s systolic, and during her visit it improves to 140 systolic. She is asymptomatic but on ROS had some mild chest pain - EKG shows no convincing signs of ischemia or dysrhytmia. CXR unremarkable. Pt has no hx blood clot, normal O2, normal HR, and the breif resolved nature of her pain makes PE extremely unlikely. Troponin is negative and ACS is extremely unlikely. Regarding patient's intermittent lightheadedness, her history suggests orthostasis, though this clashes with her other complaint of hypertension. I see no signs of dysrhythmia or heart failure today. On further history patient eats irregularly -for example she did not eat much today at all, and takes her BP medications only some of the time. I discussed with her that she needs to be more regular with her medications and log her BP and discuss with her PCP. I also encouraged more consistent nutrition. Patient agreed, was feeling well, and was discharged home. Departure - Departure Disposition: 01 Home, Self Care Clinical Impression: Lightheaded Hypertension Qualifiers: Hypertension type: unspecified Qualified Code(s): I10 - Essential (primary) hypertension Condition: Good Instructions: ED Dizziness UKO Comments: You were seen today for elevated blood pressure as well as lightheadedness. I do not see an obvious cause of your symptoms on our work-up today, but I am glad that you are feeling better and that your blood pressure has come down. Please follow-up with your primary care provider on your lightheadedness as well as your high blood pressure. Log your blood pressure 3 times a day and bring this to your next PCP visit. If you are having chest pain, fainting, shortness of breath, or severe headache, please return to the emergency department. Otherwise follow-up with your primary care provider. Discharge Date/Time: 01/04/19 04:30
[2019-01-04 01:24] LABS: BASOPHILS # (AUTO) 0.1 10^3/uL (0.0-0.1); BASOPHILS % (AUTO) 0.7 %; EOSINOPHILS # (AUTO) 0.4 10^3/uL (0.0-0.7); EOSINOPHILS % (AUTO) 5.2 %; HGB - HEMOGLOBIN 14.2 g/dL (12.0-16.0); LYMPHOCYTES # (AUTO) 2.2 10^3/uL (1.5-3.5); LYMPHOCYTES % (AUTO) 31.4 %; MEAN CORPUSCULAR HEMOGLOBIN 30.7 pg (27.0-31.0); MEAN CORPUSCULAR HGB CONC 33.6 g/dL (32.0-36.0); MEAN CORPUSCULAR VOLUME 91.6 fL (81.0-99.0); MEAN PLATELET VOLUME 9.7 fL (7.9-10.8); MONOCYTES # (AUTO) 0.6 10^3/uL (0.0-1.0); MONOCYTES % (AUTO) 8.5 %; NEUTROPHILS # (AUTO) 3.8 10^3/uL (1.5-6.6); NEUTROPHILS % (AUTO) 53.8 %; PLT - PLATELET COUNT 228 10^3/uL (130-450); RED BLOOD COUNT 4.62 10^6/uL (4.20-5.40); RED CELL DISTRIBUTION WIDTH 13.3 % (12.0-15.0); WHITE BLOOD COUNT 7.1 x10^3/uL (4.8-10.8)
[2019-01-04 01:36] LABS: ALBUMIN 3.8 g/dL (3.2-5.5); ALBUMIN/GLOBULIN RATIO 1.4 (1.0-2.2); BILIRUBIN,TOTAL 0.7 mg/dL (0.2-1.0); CALCIUM 8.9 mg/dL (8.5-10.3); CREATININE 0.7 mg/dL (0.4-1.0); TOTAL PROTEIN 6.5 g/dL (6.7-8.2)
--- NOTE | 2019-01-04 02:59 | XRAY Report ---
Reason: chest pain Procedure Date: 01/04/2019 Accession Number: [id number] / [id number] Procedure: XR - Chest 2 View X-Ray CPT Code: 49989 FULL RESULT: EXAM: CHEST RADIOGRAPHY EXAM DATE: 01/04/2019 02:45 AM. CLINICAL HISTORY: Chest pain. COMPARISON: CHEST 2 VIEW PA/LAT 10/02/2012 6:40 AM. TECHNIQUE: 2 views. FINDINGS: Lungs/Pleura: No focal opacities evident. No pleural effusion. No pneumothorax. Normal volumes. Mediastinum: Heart and mediastinal contours are unremarkable. Other: None. IMPRESSION: Normal 2-view chest radiography. RADIA
[2019-01-04 03:41] VITALS: BP 133/85
== END 2019-01-04 04:30 | disposition home or self-care (01) ==
LOC: ED 00:03
DX: I10 Essential (primary) hypertension (principal); R42 Dizziness and giddiness; R07.9 Chest pain, unspecified; I49.3 Ventricular premature depolarization; Z79.82 Long term (current) use of aspirin; F03.90 Unspecified dementia, unspecified severity, without behavioral disturbance, psychotic disturbance, mood disturbance, and anxiety
CPT/HCPCS: 36415; 71046; 80053; 83690; 84484; 85025; 93005; 99284

== ENCOUNTER 2019-01-11 08:00 | Outpatient (CLI) | payer MEDICARE ==
[2019-01-11 09:19] LABS: HB2 TOTAL 15.8 g/dL; HEMOGLOBIN A1C 0.6 g/dL; HEMOGLOBIN A1C % 5.6 % (4.6-6.2)
== END 2019-01-11 08:01 | disposition home or self-care (01) ==
LOC: LAB 08:00
PROVIDERS: ATTEND Physician Assistant Medical
DX: R73.9 Hyperglycemia, unspecified (principal)
CPT/HCPCS: 36415; 82947; 83036

== ENCOUNTER 2019-02-23 06:37 | Outpatient (CLI) | payer MEDICARE | END 2019-02-23 06:38 | disposition critical access hospital (66) | LOC: EMS 06:37 | PROVIDERS: ATTEND Surgery | DX: R42 Dizziness and giddiness (principal) | CPT/HCPCS: A0425; A0427 ==

== ENCOUNTER 2019-02-23 07:07 | Observation (INO) | payer MEDICARE ==
--- NOTE | 2019-02-23 07:50 | ED Physician Documentation ---
PD HPI HEENT - Stated complaint Stated Complaint: DIZZY - Chief complaint Chief Complaint: Neuro - History obtained from History obtained from: Patient - History of Present Illness Timing - onset: Today Timing - duration: Hours (1) Timing - details: Abrupt onset, Still present Location: Other Worsens: Position Associated symptoms: No: Fever, Congestion, Headache, Cough Similar symptoms before: Has not had sx before Review of Systems Constitutional: denies: Fever, Chills, Myalgias Nose: denies: Rhinorrhea / runny nose, Congestion Throat: denies: Sore throat Respiratory: denies: Cough GI: reports: Nausea. denies: Vomiting, Diarrhea Musculoskeletal: denies: Neck pain, Back pain Neurologic: denies: Focal weakness, Numbness, Near syncope (but did feel lightheaded as well as dizzy.), Confused, Altered mental status, Headache, Head injury Endocrine: denies: Weight loss Immunocompromised: denies: Immunocompromised PD PAST MEDICAL HISTORY - Past Medical History Past Medical History: Yes Cardiovascular: Hypertension, High cholesterol Respiratory: None Neuro: Dementia, TIA, Headaches, Migraines, Tremors Endocrine/Autoimmune: None GI: GERD MACHINE WIPER: None : Nocturia, Frequency HEENT: Chronic sinusitis Psych: None Musculoskeletal: Chronic back pain Derm: None - Past Surgical History Past Surgical History: Yes /MACHINE WIPER: Tubal ligation, Other HEENT: Tonsil/Adenoidectomy - Present Medications Home Medications: Ambulatory Orders Medication Instructions Recorded Confirmed Amlodipine Besylate [Norvasc] 2.5 mg PO DAILY PRN 02/23/19 02/23/19 Metoprolol Succinate 12.5 mg PO BID 02/23/19 02/23/19 - Allergies Allergies/Adverse Reactions: Allergies Allergy/AdvReac Type Severity Reaction Status Date / Time No Known Drug Allergies Allergy Verified 01/04/19 00:07 - Social History Does the pt smoke?: No Smoking Status: Never smoker Does the pt drink ETOH?: Yes Does the pt have substance abuse?: No - Immunizations Immunizations are current?: Yes - POLST Patient has POLST: No POLST Status: Full Code PD ED PE NORMAL - Vitals Vital signs reviewed: Yes - General General: Alert and oriented X 3, Well developed/nourished - HEENT HEENT: PERRL (nystagmus to the right. The head impulse test suggests a peripheral cause with the deviation of the eye and saccade back toward my gaze. However this can be difficult test performed.), EOMI, Pharynx benign - Neck Neck: Supple, no meningeal sign, No adenopathy, No bruit - Cardiac Cardiac: RRR, No murmur - Respiratory Respiratory: Clear bilaterally - Abdomen Abdomen: Soft, Non tender - Derm Derm: Normal color, Warm and dry - Neuro Neuro: Alert and oriented X 3, rn advice 2-12 intact, No motor deficit, No sensory deficit, Normal speech, Other Eye Opening: Spontaneous Motor: Obeys Commands Verbal: Oriented GCS Score: 15 Results - Vitals Vitals: Vital Signs - 24 hr 02/23/19 02/23/19 02/23/19 07:07 09:08 11:00 Temperature 36.6 C Heart Rate 71 62 62 Respiratory 18 11 L 9 L Rate Blood Pressure 157/69 H 130/76 119/86 H O2 Saturation 99 95 94 02/23/19 14:00 Temperature Heart Rate 99 Respiratory 18 Rate Blood Pressure 107/86 H O2 Saturation 97 Oxygen O2 Source Room air - EKG (time done) 08:43 Rate: Rate (enter#) (58) Rhythm: NSR [place]: Normal Intervals: Normal [place] QRS: Normal Ischemia: Normal ST segments. No: ST elevation c/w ischemia, ST depression - Labs Labs: Laboratory Tests 02/23/19 02/23/19 02/23/19 09:01 09:01 09:01 WBC 6.7 RBC 5.24 Hgb 15.6 Hct 47.5 H MCV 90.6 MCH 29.8 MCHC 32.8 RDW 13.1 Plt Count 209 MPV 9.5 Neut # (Auto) 4.5 Lymph # (Auto) 1.5 [place] # (Auto) 0.6 Eos # (Auto) 0.1 Baso # (Auto) 0.0 Absolute Nucleated RBC 0.00 Nucleated RBC % 0.0 ESR 5 Sodium 141 Potassium 3.9 Chloride 105 Carbon Dioxide 27 Anion Gap 9.0 BUN 14 Creatinine 0.8 Estimated GFR (MDRD) 69 L Glucose 112 H Calcium 9.0 Magnesium 2.1 Total Bilirubin 0.6 AST 20 ALT 17 Alkaline Phosphatase 79 Troponin I High Sens Total Protein 7.1 Albumin 4.0 Globulin 3.1 Albumin/Globulin Ratio 1.3 Lipase 52 H 02/23/19 02/23/19 09:01 11:47 WBC RBC Hgb Hct MCV MCH MCHC RDW Plt Count MPV Neut # (Auto) Lymph # (Auto) [place] # (Auto) Eos # (Auto) Baso # (Auto) Absolute Nucleated RBC Nucleated RBC % ESR Sodium Potassium Chloride Carbon Dioxide Anion Gap BUN Creatinine Estimated GFR (MDRD) Glucose Calcium Magnesium Total Bilirubin AST ALT Alkaline Phosphatase Troponin I High Sens 57.3 H* 88.4 H* Total Protein Albumin Globulin Albumin/Globulin Ratio Lipase PD MEDICAL DECISION MAKING - ED course Complexity details: reviewed results (She had a's elevation of her troponin but had had a normal heart cath just 2 months ago. Her heart rhythm and EKG appeared normal. Her head CT appeared okay.), re-evaluated patient (Blood tests appeared okay. She was given some medications to help with dizziness. Despite that she was still quite unsteady walking and even with a walker here could make just a few steps and then seemed unsteady and concerning for safety. She does live alone. At this point I do not feel she stable for discharge. Given the difficulty walking to I would also consider there possibility of central cerebellar abnormality even though the clinical characteristics suggest pe ripheral vertigo. I talked with the hospitalist who is agreeable to have the patient in for further treatment), considered differential, d/w patient Departure - Departure Disposition: ED Place in Observation Clinical Impression: Dizziness, Need for assistance due to unsteady gait Condition: Stable Record reviewed to determine appropriate education?: Yes Discharge Date/Time: 02/23/19 16:04
[2019-02-23] MEDS ORDERED: SODIUM CHLORIDE 0.9% 1,000 ML IV ONE (08:23)
[2019-02-23] MEDS ORDERED: LORazepam 2 MG/ML VIAL IVP STA (08:24)
[2019-02-23] MEDS ORDERED: MECLIZINE 12.5 MG TABLET PO STA (08:24)
[2019-02-23 09:08] LABS: BASOPHILS % (AUTO) 0.6 %; EOSINOPHILS # (AUTO) 0.1 10^3/uL (0.0-0.7); EOSINOPHILS % (AUTO) 1.6 %; HGB - HEMOGLOBIN 15.6 g/dL (12.0-16.0); LYMPHOCYTES # (AUTO) 1.5 10^3/uL (1.5-3.5); LYMPHOCYTES % (AUTO) 22.5 %; MEAN CORPUSCULAR HEMOGLOBIN 29.8 pg (27.0-31.0); MEAN CORPUSCULAR HGB CONC 32.8 g/dL (32.0-36.0); MEAN CORPUSCULAR VOLUME 90.6 fL (81.0-99.0); MEAN PLATELET VOLUME 9.5 fL (7.9-10.8); MONOCYTES # (AUTO) 0.6 10^3/uL (0.0-1.0); MONOCYTES % (AUTO) 8.2 %; NEUTROPHILS # (AUTO) 4.5 10^3/uL (1.5-6.6); NEUTROPHILS % (AUTO) 66.8 %; PLT - PLATELET COUNT 209 10^3/uL (130-450); RED BLOOD COUNT 5.24 10^6/uL (4.20-5.40); RED CELL DISTRIBUTION WIDTH 13.1 % (12.0-15.0); WHITE BLOOD COUNT 6.7 x10^3/uL (4.8-10.8)
--- NOTE | 2019-02-23 09:13 | CT Report ---
Reason: abrupt dizziness this morning Procedure Date: 02/23/2019 Accession Number: [id number] / [id number] Procedure: CT - HEAD WO CPT Code: Final Report FULL RESULT: EXAM: CT HEAD EXAM DATE: 02/23/2019 08:44 AM. CLINICAL HISTORY: Abrupt dizziness this morning. COMPARISON: Noncontrast head CT from 04/07/2018. TECHNIQUE: Multiaxial CT images were obtained from the foramen magnum to the vertex. Reformats: Sagittal and coronal. IV contrast: None. In accordance with CT protocol optimization, one or more of the following dose reduction techniques were utilized for this exam: automated exposure control, adjustment of mA and/or KV based on patient size, or use of iterative reconstructive technique. FINDINGS: Parenchyma: No intracranial hemorrhage demonstrated. No evidence of mass or mass-effect. The overall loomis-white matter differentiation is preserved. Extraaxial Spaces: Within normal limits. No subdural or epidural collections identified. Ventricles: Normal in size and position. Sinuses and Orbits: Imaged paranasal sinuses, orbits, and mastoids show no significant abnormality. Bones: There is hyperostosis frontalis interna. No acute calvarial fracture. Other: None. IMPRESSION: No acute intracranial abnormality. RADIA
[2019-02-23 09:21] LABS: ALBUMIN/GLOBULIN RATIO 1.3 (1.0-2.2); BILIRUBIN,TOTAL 0.6 mg/dL (0.2-1.0); CREATININE 0.8 mg/dL (0.4-1.0); MAGNESIUM 2.1 mg/dL (1.7-2.8); TOTAL PROTEIN 7.1 g/dL (6.7-8.2)
[2019-02-23] MEDS ORDERED: DEXAMETHASONE 10 MG/ML VIAL IVP STA (11:16)
[2019-02-23] MEDS ORDERED: SODIUM CHLORIDE FLUSH 0.9% 10 ML SYRINGE IVP PRN (14:44)
[2019-02-23] MEDS ORDERED: ACETAMINOPHEN 325 MG TABLET PO PRN (14:44)
--- NOTE | 2019-02-23 20:51 | HISTORY & PHYSICAL EXAMINATION ---
Chief Complaint - Chief Complaint Chief Complaint: dizziness History of Present Illness - Admitted From Admitted From:: [facility] - History Obtained From Records Reviewed: yes History obtained from: patient - History of Present Illness HPI Comment/Other: Patient is a 79 y/o female who presented to the ED via EMS with vertigo/dizziness. She woke up this morning and got very dizzy when she rolled over to look at the time. She noticed her symptom was better when she was very still. It was tremendously exacerbated by simply turning her head from one side to the other. After a while, she tried to wake up but couldn't function so she lowered herself to the floor and slithered to her phone and called 911. She denies any signs or symptoms the previous day. This is her sixth admission this year with similar symptoms. She denies any headaches, double vision, blurry vision, dysarthria, slurred speech, chest pain, dyspnea, abd pain, n/v/d, fever or chills. Her lab work was largely unremarkable. However she was found to have a troponin level of 58, then 88, then 72. She reports having a cardiac cath 2 months ago at [facility] which was unremarkable. Likewise she had an EEG done which was also unremarkable. on one presentation she was thought to have a TIA and on a subsequent admission she was thought to have [employer] amnesia because luis ram had woken up at night and could not remember why a piano was in her house or why there was a hole in her wall. She had instructed that the piano be placed there and the hole in the wall was for the electrical wall for the piano. The amnesia lasted about 24 hours. In the ED today, her work up included a CT of the brain without contrast and was unremarkable. She has a horizontal right going nystagmus. She is being admitted for further work up. History - Past Medical History Cardiovascular: reports: Hypertension, High cholesterol Respiratory: reports: None Neuro: reports: Dementia, TIA, Headaches, Migraines, Tremors Endocrine/Autoimmune: reports: None GI: reports: GERD CHEF UNDER: reports: None : reports: Nocturia, Frequency HEENT: reports: Chronic sinusitis Psych: reports: None Musculoskeletal: reports: Chronic back pain Derm: reports: None MRSA Hx?: No - Past Surgical History /CHEF UNDER: reports: Tubal ligation, Other HEENT: reports: Tonsil/Adenoidectomy - Family & Social History Family History: Mother: , Father: Family History Comment/Other: Mother at age 86, had a tremor. Father at age 85, LUPIS from sepsis, other family hx of heart disease. Living arrangement: At home Living Situation: Alone Social History Notes: She lives independently in [place], [place]. She has a dog, a cat and worked for the [employer] for several years before retiring. She belongs to the foster and adoption support program out of [place]. She enjoys walking her dog and does daily water aerobics. - Substance History Use: Uses substance without health or social issues: NONE - POLST Patient has POLST: No POLST Status: Full Code Meds/Allgy - Home Medications Home Medications: Ambulatory Orders Medication Instructions Recorded Confirmed Amlodipine Besylate [Norvasc] 2.5 mg PO DAILY PRN 02/23/19 02/23/19 Metoprolol Succinate 12.5 mg PO BID 02/23/19 02/23/19 - Allergies Allergies/Adverse Reactions: Allergies Allergy/AdvReac Type Severity Reaction Status Date / Time No Known Drug Allergies Allergy Verified 01/04/19 00:07 Review of Systems - Constitutional Constitutional: denies: Fatigue, Fever, Chills, Malaise - Eyes Eyes: denies: Pain, Blurred vision, Vision loss, Dipolpia - Ears, Nose & Throat Ears, Nose & Throat: reports: Vertigo. denies: Tinnitus, Sore throat, Hoarseness - Cardiovascular Cariovascular: reports: Lightheadedness. denies: Irregular heart rate, Palpitations, Chest pain, Edema, Syncope, Exertional dyspnea, Decr. exercise tolerance - Respiratory Respiratory: denies: Cough, Sputum production, Wheezing, SOB at rest, SOB with exertion - Gastrointestinal Gastrointestinal: denies: Abdominal pain, Abdominal distention, Constipation, Diarrhea, Nausea, Vomiting, Coffee grounds emesis, Reflux/heartburn - Genitourinary Genitourinary: denies: Dysuria, Frequency, Urgency, Hematuria, Incontinence, Flank pain - Musculoskeletal Musculoskeletal: denies: Muscle pain, Back pain, Muscle aches - Integumentary Integumentary: denies: Rash, Pruritis, Lesions, Dryness - Neurological Neurological: reports: Dizziness. denies: General weakness, Focal weakness, Headache, Numbness, Memory problems, Seizures, Incoordination, Slurred speech - Psychiatric Psychiatric: denies: Depression, Anxiety - Endocrine Endocrine: denies: Polyuria, Polydypsia - Hematologic/Lymphatic Hematologic/Lymphatic: denies: Anemia, Bruising, Petechiae Prior Level of Functionality: She is independent of activities of daily living Exam - Vital Signs Vital Signs: Vital Signs x48h Temp Pulse Pulse Pulse Pulse Pulse Resp 02/23/19 19:42 36.6 C 81 12 02/23/19 16:36 77 86 72 02/23/19 16:00 36.5 C 75 12 02/23/19 15:46 76 18 02/23/19 14:00 99 18 BP BP BP BP BP Pulse Ox 02/23/19 19:42 123/63 92 02/23/19 16:36 123/82 H 146/87 H 135/80 H 02/23/19 16:00 147/80 H 95 02/23/19 15:46 156/94 H 98 02/23/19 14:00 107/86 H 97 - Physical Exam General Appearance: positive: No acute distress, Alert. negative: Anxious, Lethargic Eyes Bilateral: positive: Normal inspection, PERRL, EOMI ENT: positive: ENT inspection nml, No signs of dehydration Neck: positive: Nml inspection, No JVD, Trachea midline Respiratory: positive: Chest non-tender, No respiratory distress, Breath sounds nml. negative: Wheezes, Rales, Rhonchi Cardiovascular: positive: Regular rate & rhythm, No murmur Abdomen: positive: Non-tender, No organomegaly, Nml bowel sounds, No distention Back: positive: Nml inspection Skin: positive: Color nml, No rash, Warm Extremities: positive: Non-tender, Full ROM, Nml appearance Neurologic/Psychiatric: positive: Oriented x3, CN's nml (2-12), Motor nml, Sensation nml, Mood/affect nml. negative: Weakness, Facial droop, Slurred/abnml speech Conclusion/Plan - Problem List (1) Dizziness Conclusion/Plan: DDx: TIA vs Benign Positional vertigo (more likely given fluctation in symptoms based on movement) CT brain w/o contrast was neg MRI brain w/o contrast, 2D echo, Carotid duplex Physical therapy to attempt Janneth Halpike Maneuver Antivert prn (2) Hypertension Conclusion/Plan: On amlodipine and metoprolol Qualifiers: Hypertension type: unspecified Qualified Code(s): I10 - Essential (primary) hypertension (3) Elevated troponin Conclusion/Plan: Trended to completion 57, 88, 73 Patient recently had a cardiac cath 2 months ago Records requested from [facility] further work up currently - Lab Results Fish Bones: 02/23/19 09:01 02/23/19 09:01 Core Measures - Anticipated LOS I expect patient to be DC'd or transferred within 96 hours.: Yes - DVT/VTE - Prophylaxis VTE/DVT Device ordered at admit?: Yes
[2019-02-23] MEDS: MECLIZINE 12.5 MG TABLET PO PRN (21:12)
[2019-02-23] MEDS: FAMOTIDINE 20 MG TABLET PO SCH (21:12)
[2019-02-23] MEDS: SODIUM CHLORIDE FLUSH 0.9% 10 ML SYRINGE IVP SCH (21:14)
[2019-02-24] MEDS: SODIUM CHLORIDE FLUSH 0.9% 10 ML SYRINGE IVP SCH ×2 (04:31→10:37)
[2019-02-24 04:56] LABS: BASOPHILS % (AUTO) 0.2 %; EOSINOPHILS # (AUTO) 0.1 10^3/uL (0.0-0.7); EOSINOPHILS % (AUTO) 0.3 %; HGB - HEMOGLOBIN 14.5 g/dL (12.0-16.0); LYMPHOCYTES # (AUTO) 1.6 10^3/uL (1.5-3.5); LYMPHOCYTES % (AUTO) 9.7 %; MEAN CORPUSCULAR HEMOGLOBIN 30.2 pg (27.0-31.0); MEAN CORPUSCULAR HGB CONC 32.9 g/dL (32.0-36.0); MEAN CORPUSCULAR VOLUME 91.9 fL (81.0-99.0); MEAN PLATELET VOLUME 9.5 fL (7.9-10.8); MONOCYTES # (AUTO) 0.7 10^3/uL (0.0-1.0); MONOCYTES % (AUTO) 4.4 %; NEUTROPHILS # (AUTO) 13.5 10^3/uL (1.5-6.6); NEUTROPHILS % (AUTO) 84.4 %; PLT - PLATELET COUNT 210 10^3/uL (130-450); WHITE BLOOD COUNT 16.1 x10^3/uL (4.8-10.8)
[2019-02-24 05:01] LABS: CALCIUM 8.8 mg/dL (8.5-10.3); CREATININE 0.7 mg/dL (0.4-1.0)
[2019-02-24] MEDS: MECLIZINE 12.5 MG TABLET PO PRN (06:58)
[2019-02-24] MEDS: FAMOTIDINE 20 MG TABLET PO SCH (08:16)
--- NOTE | 2019-02-24 10:31 | MRI Report ---
Reason: TIA vs CVA, vertigo Procedure Date: 02/24/2019 Accession Number: [id number] / [id number] Procedure: MRI - Brain W/O CPT Code: Final Report FULL RESULT: EXAM: MRI BRAIN WITHOUT CONTRAST EXAM DATE: 02/24/2019 10:11 AM. CLINICAL HISTORY: Vertigo. Stated clinical diagnosis of TIA versus CVA. COMPARISON: BRAIN W/O 04/08/2018 11:29 AM. TECHNIQUE: Multiplanar, multisequence T1-weighted and fluid-sensitive MR sequences of the brain were performed. Sequences optimized for routine evaluation. Other: None. IV Contrast: None. FINDINGS: Brain Volume: Normal for age. Parenchyma/Dura: No mass, acute infarct or hemorrhage. Stable appearing white matter, normal for age. Tiny T2 hyperintensity of the inferior left cerebellum, this may be a very small old infarct measuring about 2 mm. Ventricles/Cisterns: No hydrocephalus. No abnormal extra-axial fluid collection or hemorrhage. Orbits: Previous lens extraction on the right. Sella Turcica: The pituitary gland, cavernous sinuses, suprasellar cistern and optic chiasm are unremarkable. IAC: Symmetric and unremarkable. Vasculature: Normal signal flow void is seen in the major arterial structures at the skull base. Sinuses: No acute appearing sinus disease. Bones: Stable incidental findings of hyperostosis frontalis interna. Other: None. IMPRESSION: No MRI evidence of acute intracranial abnormality, no acute hemorrhage or stroke. RADIA
--- NOTE | 2019-02-24 16:01 | Ultrasound Report ---
Reason: dizziness. Procedure Date: 02/24/2019 Accession Number: [id number] / [id number] Procedure: US - Carotid Doppler Complete CPT Code: Final Report FULL RESULT: EXAM: BILATERAL CAROTID AND VERTEBRAL ARTERY DUPLEX DOPPLER ULTRASOUND. EXAM DATE: 02/24/2019 03:39 PM. CLINICAL HISTORY: Dizziness. COMPARISON: None. TECHNIQUE: Grayscale imaging, color Doppler, and duplex spectral Doppler were used to evaluate the carotid and vertebral arteries bilaterally. Static images were obtained. FINDINGS: No significant plaque is identified in the right or left common or internal carotid arteries. Normal antegrade flow is present in bilateral vertebral arteries. VELOCITIES (cm/sec): Right CCA mid: PSV 84 cm/sec CCA dist: PSV 89 cm/sec ICA prox: PSV 55 cm/sec, EDV 22 cm/sec ICA mid: PSV 71 cm/sec, EDV 20 cm/sec ICA dist: PSV 54 cm/sec, EDV 23 cm/sec ECA: PSV 123 cm/sec Vert: PSV 66 cm/sec ICA/CCA: 0.80 Left CCA mid: PSV 71 cm/sec CCA dist: PSV 81 cm/sec ICA prox: PSV 56 cm/sec, EDV 22 cm/sec ICA mid: PSV 60 cm/sec, EDV 23 cm/sec ICA dist: PSV 81 cm/sec, EDV 30 cm/sec ECA: PSV 78 cm/sec Vert: PSV 40 cm/sec ICA/CCA: 1.0 ICA diameter stenosis: Right: <50% by velocity and <70% by NASCET criteria. Left: <50% by velocity and <70% by NASCET criteria. IMPRESSION: 1. No significant bilateral carotid artery plaquing. 2. In the right carotid artery there are no elevated carotid artery velocities to suggest hemodynamically significant stenosis. 3. In the left carotid artery there are no elevated carotid artery velocities to suggest hemodynamically significant stenosis. 4. Normal antegrade flow is present in bilateral vertebral arteries. General Recommendations: Stenosis =50% ICA - Follow-up ultrasound 6-12 months Stenosis <50% ICA - High Risk Patient with plaque - Follow-up ultrasound 1-2 years Normal Study but High Risk Patient - Follow-up ultrasound 3-5 years Management recommendations and diagnostic criteria are based on current IAC endorsed standards in Carotid Artery Stenosis: Grayscale and Doppler Ultrasound Diagnosis. Validated velocity measurements with angiographic measurements and velocity criteria are extrapolated from diameter data as defined by the Society of Radiologists in Ultrasound Consensus Conference Radiology 2003; 229;340-346. RADIA
--- NOTE | 2019-02-24 16:44 | Discharge Plan ---
Discharge Plan Problem Reviewed?: Yes Disposition: Home, Self Care Condition: Stable Prescriptions: Walker [Ultra-Light Rollator] 1 each MC DAILY PM #1 each Diet: Regular Activity Restrictions: Activity as Tolerated Shower Restrictions: No Driving Restrictions: No Health Concerns: You presented to our emergency room with severe dizziness upon awakening. Just turning her head would cause severe dizziness and the feeling that you are going to pass out. You have had some versions of dizziness off and on this year. This is resulted in a coronary angiogram which was negative. An echocardiogram which was negative. And an EEG that was negative. You also had an episode of transient global amnesia. You were placed in observation and that there were no telemetry changes of your heart rhythm. Your lab work was normal with regards to kidney, liver, heart. A test for inflammation, called sedimentation rate, was normal at 5. Plan of Treatment: 1. As already stated, telemetry and analysis of your rhythm was normal 2. MRI of your brain was normal 3. CT of your head was normal 4. Carotid Dopplers which is an ultrasound analysis of the blood flow in the arteries of your neck were normal 5. Physical therapy evaluated you, and for safety sake recommends a walker at this time Care Goals: 1. Safety is your main concern because of your fear of passing out or falls. As such the walker. 2. You would like to feel a sense of comfort if someone were to be with you. You are making plans to hire private caregivers until you feel this current episode of dizziness has resolved. Social work is given you a list for you to call. 3. Please see your primary care provider, Ivette Guo, to see if she can refer you for physical therapy regarding the Chavo maneuver. Assessment: Patient understands care goals. Will follow through. No Smoking: If you smoke, Please STOP! Call for help. Follow-up with: Ivette Guo PA-C [Primary Care Provider] -
[2019-02-24 18:01] VITALS: BP 141/81
--- NOTE | 2019-02-24 19:09 | PROVIDER PROGRESS NOTE ---
Subjective - Prog Note Date Prog Note Date: 02/24/19 Prog Note Time: 19:07 - Subjective Pt reports feeling: Improved Subjective: DISCHARGE NOTE Every time she turns her head, right or left, the wave of vertigo just hits her. Tinge of nausea with it. No numb lips, no problems with dysarthria or anarthria. No deafness. Current Medications - Current Medications Current Medications: Active Medications Acetaminophen (Tylenol) 650 mg PO Q4HR PRN PRN Reason: Pain 1 to 4 Famotidine (Pepcid) 20 mg PO BID [facility] Last Admin: 02/24/19 08:16 Dose: 20 mg Meclizine HCl (Antivert) 12.5 mg PO Q6HR PRN PRN Reason: Dizziness Last Admin: 02/24/19 06:58 Dose: 12.5 mg Sodium Chloride (Normal Saline Flush 0.9%) 10 ml IVP PRN PRN PRN Reason: NEEDED PER PROVIDER ORDERS Last Admin: 02/24/19 08:16 Dose: 10 ml Sodium Chloride (Normal Saline Flush 0.9%) 10 ml IVP 0100,0900,1700 [facility] Last Admin: 02/24/19 10:37 Dose: 10 ml Amlodipine Besylate [Norvasc] 2.5 mg PO DAILY PRN 02/23/19 Metoprolol Succinate 12.5 mg PO BID 02/23/19 Objective - Vital Signs/Intake & Output Reviewed Vital Signs: Yes Vital Signs: Vital Signs x48h Temp Pulse Pulse Pulse Resp BP BP 02/24/19 17:59 36.7 C 71 71 H 141/81 H 02/24/19 16:00 36.5 C 71 18 139/80 H 02/24/19 13:00 72 72 129/71 02/24/19 11:42 36.5 C 70 16 125/80 BP Pulse Ox 02/24/19 17:59 16 L 02/24/19 16:00 98 02/24/19 13:00 118/73 02/24/19 11:42 96 Intake & Output: Intake & Output 02/21/19 02/22/19 02/23/19 02/24/19 23:59 23:59 23:59 23:59 Intake Total 1470 1740 Output Total 600 Balance 1470 1140 - Objective General Appearance: positive: No acute distress, Alert Eyes Bilateral: positive: PERRL ENT: positive: Pharynx nml Neck: positive: No JVD. negative: Stiff neck, Carotid bruit Respiratory: positive: Chest non-tender. negative: Wheezes, Rales, Rhonchi Cardiovascular: positive: Regular rate & rhythm. negative: Gallop/S4, Friction rub Abdomen: positive: Non-tender, No organomegaly, Nml bowel sounds, No distention Skin: positive: Warm, Dry Extremities: positive: Non-tender, Full ROM, No pedal edema Neurologic/Psychiatric: positive: Oriented x3, CN's nml (2-12) (6 beat Horizontal nystagmus), Motor nml. negative: Mood/affect nml (Anxious), Facial droop, Slurred/abnml speech - Lab Results Fish Bones: 02/24/19 04:30 02/24/19 04:30 Other Labs: Lab Results x24hrs 02/24/19 02/24/19 02/23/19 Range/Units 04:30 04:30 20:50 WBC 16.1 H (4.8-10.8) x10^3/uL RBC 4.80 (4.20-5.40) 10^6/uL Hgb 14.5 (12.0-16.0) g/dL Hct 44.1 (37.0-47.0) % MCV 91.9 (81.0-99.0) fL MCH 30.2 (27.0-31.0) pg MCHC 32.9 (32.0-36.0) g/dL RDW 13.0 (12.0-15.0) % Plt Count 210 (130-450) 10^3/uL MPV 9.5 (7.9-10.8) fL Neut # (Auto) 13.5 H (1.5-6.6) 10^3/uL Lymph # (Auto) 1.6 (1.5-3.5) 10^3/uL Briscoe # (Auto) 0.7 (0.0-1.0) 10^3/uL Eos # (Auto) 0.1 (0.0-0.7) 10^3/uL Baso # (Auto) 0.0 (0.0-0.1) 10^3/uL Absolute Nucleated RBC 0.00 x10^3/uL Nucleated RBC % 0.0 /100WBC Sodium 139 (135-145) mmol/L Potassium 4.0 (3.5-5.0) mmol/L Chloride 107 (101-111) mmol/L Carbon Dioxide 25 (21-32) mmol/L Anion Gap 7.0 (6-13) BUN 20 (6-20) mg/dL Creatinine 0.7 (0.4-1.0) mg/dL Estimated GFR (MDRD) 81 L (>89) Glucose 140 H (70-100) mg/dL Calcium 8.8 (8.5-10.3) mg/dL Troponin I High Sens 72.7 H* (2.3-14.8) ng/L ABX Reporting Has patient been on IV antibiotics over the past 48 hours?: No Assessment/Plan - Problem List (1) Acute labyrinthitis Impression: 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 Carotid Dopplers are negative, MRI of the brain is negative, and telemetry is negative for arrhythmia. She is discharged in stable condition. To follow-up with physical therapy tomorrow. They feel that she has labyrinthitis and they have scheduled her for a Chavo maneuver tomorrow. She is very fearful about returning to live by herself because she feels that this dizziness is so severe that she is going to fall. As such we have given her a list of in-home caregivers that she may be able to hire to stay with her until this episode resolves. She will stay on the [facility], stay with her daughter [facility], do the Chavo maneuver tomorrow. Then go stay with her daughter in [place] because it is easier to get in-home caregivers there. I have asked her to see neurology in follow-up for an opinion. A 30-minute discussion was held describing what all these diseases are. Why an MRI scan is better than a CT scan for this. She does not want meclizine. Qualifiers: Laterality: unspecified laterality Qualified Code(s): H83.09 - Labyrinthitis, unspecified ear (2) Hypertension Impression: Orthostatic blood pressure was done. Supine she was 135/80. Sitting she was 123/82. Standing she was 146/87. Her highest blood pressure during her stay was 168/94. There were no changes made in her medications and she is sent home on her metoprolol and Norvasc. No changes. Qualifiers: Hypertension type: essential hypertension Qualified Code(s): I10 - Essential (primary) hypertension (3) Elevated troponin Impression: She presented to our emergency room in December 2018 with left arm achiness, and nausea that resolved on its own. No chest pain. She already has a history of chest pain, seen by cardiology in September 2018, multiple visits for chest pain at rest. Stress test done September 2018 was low risk and normal study. With the December chest pain, she was told to go to the emergency room by the consulting nurse over the phone from [place]. In the emergency room she was found to have a normal EKG without acute changes but troponins were elevated to 92 so she was transferred to [facility] for further evaluation. Her repeat troponins trended down. She was put on the acute coronary syndrome protocol. Cardiac cath was done which did not show any signs of ischemic heart disease. Heparin drip was stopped. Her case was reviewed with cardiology again who felt that her elevated troponin was thought to be from elevated blood pressure. As such, we will not do any further evaluation for chest pain with this stay. Her troponins were 57, 88, 72 (4) History of transient ischemic attack (TIA) Impression: TIA admission March,. She presented with altered mental status, headache, and confusion/garbled speech. With that stay MRI and carotid duplex were unremarkable. Echocardiogram normal. She was started on aspirin and statin and has been advised to follow-up with neurology. She has not done yet. We are asking her to do that now.
== END 2019-02-24 19:42 | disposition home or self-care (01) ==
LOC: EDUNIT# → ED 07:07 → MS2 14:39
PROVIDERS: ADMIT Internal Medicine; ATTEND Specialist
DX: R42 Dizziness and giddiness (principal); R26.81 Unsteadiness on feet; H55.00 Unspecified nystagmus; R11.0 Nausea; R79.89 Other specified abnormal findings of blood chemistry; I10 Essential (primary) hypertension; F03.90 Unspecified dementia, unspecified severity, without behavioral disturbance, psychotic disturbance, mood disturbance, and anxiety; Z86.73 Personal history of transient ischemic attack (TIA), and cerebral infarction without residual deficits; Z60.2 Problems related to living alone
CPT/HCPCS: 36415; 70450; 70551; 80048; 80053; 83690; 83735; 84484; 85025; 85651; 93005; 93880; 96361; 96374; 96375; 99284

== ENCOUNTER 2019-07-04 12:30 | Outpatient (CLI) | payer MEDICARE ==
[2019-07-04 12:55] LABS: BASOPHILS % (AUTO) 0.6 %; EOSINOPHILS # (AUTO) 0.3 10^3/uL (0.0-0.7); EOSINOPHILS % (AUTO) 4.7 %; HGB - HEMOGLOBIN 14.5 g/dL (12.0-16.0); LYMPHOCYTES % (AUTO) 27.9 %; MEAN CORPUSCULAR HEMOGLOBIN 30.7 pg (27.0-31.0); MEAN CORPUSCULAR HGB CONC 33.9 g/dL (32.0-36.0); MEAN CORPUSCULAR VOLUME 90.5 fL (81.0-99.0); MEAN PLATELET VOLUME 9.2 fL (7.9-10.8); MONOCYTES # (AUTO) 0.6 10^3/uL (0.0-1.0); NEUTROPHILS # (AUTO) 4.2 10^3/uL (1.5-6.6); NEUTROPHILS % (AUTO) 58.4 %; PLT - PLATELET COUNT 217 10^3/uL (130-450); RED BLOOD COUNT 4.73 10^6/uL (4.20-5.40); RED CELL DISTRIBUTION WIDTH 13.3 % (12.0-15.0); WHITE BLOOD COUNT 7.3 x10^3/uL (4.8-10.8)
[2019-07-04 13:06] LABS: ALBUMIN 4.2 g/dL (3.2-5.5); ALBUMIN/GLOBULIN RATIO 1.6 (1.0-2.2); BILIRUBIN,TOTAL 0.6 mg/dL (0.2-1.0); CALCIUM 8.5 mg/dL (8.5-10.3); CREATININE 0.7 mg/dL (0.4-1.0); TOTAL PROTEIN 6.9 g/dL (6.7-8.2)
== END 2019-07-04 12:31 | disposition home or self-care (01) ==
LOC: LAB 12:30
PROVIDERS: ATTEND Physician Assistant Medical
DX: I10 Essential (primary) hypertension (principal); R79.9 Abnormal finding of blood chemistry, unspecified
CPT/HCPCS: 36415; 80053; 85025

== ENCOUNTER 2019-07-07 16:09 | Outpatient (CLI) | payer MEDICARE | END 2019-07-07 16:10 | disposition EMS.NT | LOC: EMS 16:09 | PROVIDERS: ATTEND Surgery | DX: R07.9 Chest pain, unspecified (principal); F41.9 Anxiety disorder, unspecified ==

== ENCOUNTER 2019-08-28 10:45 | Emergency (ER) | payer MEDICARE ==
--- NOTE | 2019-08-28 11:18 | ED Physician Documentation ---
History of Present Illness - Stated complaint Stated Complaint: CONFUSION - Chief complaint Chief Complaint: Neuro - History obtained from History obtained from: Patient - History of Present Illness Timing: Today Pain level max: 0 Pain level now: 0 - Additonal information Additional information: Patient is a 79-year-old female who presents to the emergency department stating that when she awoke from sleep today she felt like she was having a very vivid dream and was having trouble distinguishing between her dream and reality. She states she just felt "foggy". No focal neurological deficits. No difficulty with speech. No focal numbness or tingling. Review of Systems Ten Systems: 10 systems reviewed and negative Constitutional: denies: Fever, Chills Nose: denies: Rhinorrhea / runny nose, Congestion Respiratory: denies: Cough GI: denies: Vomiting, Diarrhea Skin: denies: Rash Musculoskeletal: denies: Neck pain, Back pain Neurologic: denies: Headache PD PAST MEDICAL HISTORY - Past Medical History Cardiovascular: Hypertension, High cholesterol Respiratory: None Neuro: Dementia, TIA, Headaches, Migraines, Tremors Endocrine/Autoimmune: None GI: GERD PHARMACY BUYER: None : Nocturia, Frequency HEENT: Chronic sinusitis Psych: None Musculoskeletal: Chronic back pain Derm: None - Past Surgical History Past Surgical History: Yes /PHARMACY BUYER: Tubal ligation, Other HEENT: Tonsil/Adenoidectomy Derm: Skin cancer surgery - Present Medications Home Medications: Ambulatory Orders Medication Instructions Recorded Confirmed Amlodipine Besylate [Norvasc] 2.5 mg PO DAILY PRN 02/23/19 02/23/19 Metoprolol Succinate 12.5 mg PO BID 02/23/19 02/23/19 Walker [Ultra-Light Rollator] 1 each MC DAILY PM #1 each 02/24/19 Cephalexin [Keflex] 500 mg PO Q6H #20 capsule 08/28/19 - Allergies Allergies/Adverse Reactions: Allergies Allergy/AdvReac Type Severity Reaction Status Date / Time No Known Drug Allergies Allergy Verified 01/04/19 00:07 - Social History Does the pt smoke?: No Smoking Status: Never smoker Does the pt drink ETOH?: Yes Does the pt have substance abuse?: No - Immunizations Immunizations are current?: Yes - POLST Patient has POLST: No POLST Status: Full Code PD ED PE NORMAL - Vitals Vital signs reviewed: Yes - General General: Alert and oriented X 3, No acute distress, Well developed/nourished - HEENT HEENT: PERRL, Moist mucous membranes - Neck Neck: Supple, no meningeal sign - Cardiac Cardiac: RRR, Strong equal pulses - Respiratory Respiratory: No respiratory distress, Clear bilaterally - Abdomen Abdomen: Soft, Non tender, Non distended - Back Back: No spinal TTP - Derm Derm: Warm and dry - Extremities Extremities: No edema - Neuro Neuro: Alert and oriented X 3, subcontract administrator 2-12 intact, No motor deficit, No sensory deficit, Normal speech Eye Opening: Spontaneous Motor: Obeys Commands Verbal: Oriented GCS Score: 15 - Psych Psych: Normal mood, Normal affect Results - Vitals Vitals: Vital Signs - 24 hr 08/28/19 08/28/19 08/28/19 10:50 11:03 11:33 Temperature 36.1 C L Heart Rate 72 70 72 Respiratory 18 16 16 Rate Blood Pressure 149/84 H 132/65 H 135/68 H O2 Saturation 100 100 100 08/28/19 08/28/19 08/28/19 12:03 13:00 13:13 Temperature 36.7 C Heart Rate 75 72 64 Respiratory 16 16 16 Rate Blood Pressure 138/65 H 142/68 H 116/70 O2 Saturation 100 100 100 Oxygen O2 Source Room air - EKG (time done) 1106 Rate: Rate (enter#) (65) Rhythm: NSR [place]: Normal Intervals: Normal VT QRS: Normal Ischemia: Normal ST segments - Labs Labs: Laboratory Tests 08/28/19 08/28/19 08/28/19 11:12 11:23 11:42 WBC 8.0 RBC 5.06 Hgb 15.3 Hct 46.4 MCV 91.7 MCH 30.2 MCHC 33.0 RDW 14.1 Plt Count 215 MPV 10.0 Neut # (Auto) 5.1 Lymph # (Auto) 2.1 [place] # (Auto) 0.5 Eos # (Auto) 0.2 Baso # (Auto) 0.1 Absolute Nucleated RBC 0.00 Nucleated RBC % 0.0 Sodium 139 Potassium 3.9 Chloride 104 Carbon Dioxide 28 Anion Gap 7.0 BUN 14 Creatinine 0.7 Estimated GFR (MDRD) 81 L Glucose 91 POC Whole Bld Glucose 80 Calcium 8.9 Total Bilirubin 0.5 AST 21 ALT 18 Alkaline Phosphatase 72 Troponin I High Sens Total Protein 6.7 Albumin 3.9 Globulin 2.8 Albumin/Globulin Ratio 1.4 Lipase 44 Urine Color Urine Clarity Urine pH Ur Specific [place] Urine Protein Urine Glucose (UA) Urine Ketones Urine Occult Blood Urine Nitrite Urine Bilirubin Urine Urobilinogen Ur Leukocyte Esterase Urine RBC Urine WBC Ur Squamous Epith Cells Urine Bacteria Ur Microscopic Review Urine Culture Comments 08/28/19 08/28/19 11:42 12:00 WBC RBC Hgb Hct MCV MCH MCHC RDW Plt Count MPV Neut # (Auto) Lymph # (Auto) [place] # (Auto) Eos # (Auto) Baso # (Auto) Absolute Nucleated RBC Nucleated RBC % Sodium Potassium Chloride Carbon Dioxide Anion Gap BUN Creatinine Estimated GFR (MDRD) Glucose POC Whole Bld Glucose Calcium Total Bilirubin AST ALT Alkaline Phosphatase Troponin I High Sens 12.9 Total Protein Albumin Globulin Albumin/Globulin Ratio Lipase Urine Color YELLOW Urine Clarity CLEAR Urine pH 7.0 Ur Specific [place] <=1.005 Urine Protein NEGATIVE Urine Glucose (UA) NEGATIVE Urine Ketones TRACE Urine Occult Blood NEGATIVE Urine Nitrite NEGATIVE Urine Bilirubin NEGATIVE Urine Urobilinogen 0.2 (NORMAL) Ur Leukocyte Esterase SMALL H Urine RBC None Seen Urine WBC 0-3 Ur Squamous Epith Cells NONE SEEN Urine Bacteria None Seen Ur Microscopic Review INDICATED Urine Culture Comments INDICATED PD MEDICAL DECISION MAKING - ED course Complexity details: reviewed results, re-evaluated patient, considered differential, d/w patient ED course: 79-year-old female presents to the emergency department what appears to be UTI. Unclear what her altered mental status was this morning, possible sleep disorder? No evidence of stroke. No evidence of TIA. We will treat her for UTI and have her follow-up with her doctor for further care. Normal exam here. Patient counseled regarding signs and symptoms for which I believe and urgent re-evaluation would be necessary. Patient with good understanding of and agreement to plan and is comfortable going home at this time This document was made in part using voice recognition software. While efforts are made to proofread this document, sound alike and grammatical errors may occur. Departure - Departure Disposition: 01 Home, Self Care Clinical Impression: Altered mental status Qualifiers: Altered mental status type: transient alteration of awareness Qualified Code(s): R40.4 - Transient alteration of awareness UTI (urinary tract infection) Qualifiers: Urinary tract infection type: acute cystitis Hematuria presence: without hematuria Qualified Code(s): N30.00 - Acute cystitis without hematuria Condition: Good Instructions: ED Confusion Follow-Up: Ivette Guo PA-C [Primary Care Provider] - Within 1 week Prescriptions: Cephalexin [Keflex] 500 mg PO Q6H #20 capsule Comments: Follow-up with your doctor within 1 week. You potentially have a urinary tract infection as well, we will treat you for this with antibiotics. Return if you worsen. Discharge Date/Time: 08/28/19 13:14 NIHSS - Time Time: 11:18 - Level of Consciousness Level of consciousness: (0) Alert, Keenly responsive LOC Questions: (0) Answers both Q's correct LOC Commands: (0) Performs both correctly - Gaze Best Gaze: (0) Normal - Visual Visual: (0) No loss - Facial Palsy Facial Palsy: (0) Normal, symmetrical movement - Motor Arms (both separate) Motor Arm (right): (0) No drift Motor Arm (left): (0) No drift - Motor Legs (both separate) Motor Leg (right): (0) No drift Motor Leg (left): (0) No drift - Limb Ataxia Limb Ataxia: (0) Absent - Sensory Sensory: (0) Normal - Best Language Best Language: (0) No aphasia - Dysarthria Dysarthria: (0) Normal - Extinction and Inattention (formally neg Extinction and inattention: (0) No abnormality - Total Score/Results Total Score/Result: 0
[2019-08-28 11:20] LABS: BASOPHILS # (AUTO) 0.1 10^3/uL (0.0-0.1); BASOPHILS % (AUTO) 0.6 %; EOSINOPHILS # (AUTO) 0.2 10^3/uL (0.0-0.7); EOSINOPHILS % (AUTO) 2.2 %; HGB - HEMOGLOBIN 15.3 g/dL (12.0-16.0); LYMPHOCYTES # (AUTO) 2.1 10^3/uL (1.5-3.5); LYMPHOCYTES % (AUTO) 26.3 %; MEAN CORPUSCULAR HEMOGLOBIN 30.2 pg (27.0-31.0); MEAN CORPUSCULAR VOLUME 91.7 fL (81.0-99.0); MONOCYTES # (AUTO) 0.5 10^3/uL (0.0-1.0); MONOCYTES % (AUTO) 6.7 %; NEUTROPHILS # (AUTO) 5.1 10^3/uL (1.5-6.6); PLT - PLATELET COUNT 215 10^3/uL (130-450); RED BLOOD COUNT 5.06 10^6/uL (4.20-5.40); RED CELL DISTRIBUTION WIDTH 14.1 % (12.0-15.0)
[2019-08-28 12:04] LABS: ALBUMIN 3.9 g/dL (3.2-5.5); ALBUMIN/GLOBULIN RATIO 1.4 (1.0-2.2); BILIRUBIN,TOTAL 0.5 mg/dL (0.2-1.0); CALCIUM 8.9 mg/dL (8.5-10.3); CREATININE 0.7 mg/dL (0.4-1.0); TOTAL PROTEIN 6.7 g/dL (6.7-8.2)
[2019-08-28 12:09] LABS: BILIRUBIN,URINE NEGATIVE (NEGATIVE); GLUCOSE, URINE (UA) NEGATIVE (NEGATIVE); KETONES,URINE (UA) TRACE mg/dL (NEGATIVE); LEUKOCYTE ESTERASE, URINE SMALL (NEGATIVE); NITRITE,URINE NEGATIVE (NEGATIVE); OCCULT BLOOD,URINE NEGATIVE (NEGATIVE); PROTEIN,URINE NEGATIVE (NEGATIVE); UROBILINOGEN,URINE 0.2 (NORMAL) E.U./dL (NORMAL)
[2019-08-28 12:11] LABS: CLARITY,URINE CLEAR (CLEAR)
[2019-08-28 12:18] LABS: BACTERIA,URINE None Seen /HPF (None Seen); RBC,URINE None Seen /HPF (0-5); SQUAMOUS EPITHELIAL CELL,UR NONE SEEN (<= Few)
[2019-08-28 13:14] VITALS: BP 116/70
== END 2019-08-28 13:14 | disposition home or self-care (01) ==
LOC: ED 10:45
DX: R40.4 Transient alteration of awareness (principal); N30.00 Acute cystitis without hematuria; F03.90 Unspecified dementia, unspecified severity, without behavioral disturbance, psychotic disturbance, mood disturbance, and anxiety; I10 Essential (primary) hypertension; Z86.73 Personal history of transient ischemic attack (TIA), and cerebral infarction without residual deficits
CPT/HCPCS: 36415; 80053; 81001; 81003; 83690; 84484; 85025; 87086; 93005; 99284

== ENCOUNTER 2019-09-30 09:10 | Outpatient (CLI) | payer MEDICARE | END 2019-09-30 23:59 | disposition home or self-care (01) | LOC: COV 09:10 | PROVIDERS: ATTEND Family Medicine | DX: Z20.828 Contact with and (suspected) exposure to other viral communicable diseases (principal) ==

== ENCOUNTER 2019-11-21 14:33 | Outpatient (CLI) | payer MEDICARE | END 2019-11-21 14:34 | disposition home or self-care (01) | LOC: COV 14:33 | PROVIDERS: ATTEND Student in an Organized Health Care Education/Training Program | DX: Z01.818 Encounter for other preprocedural examination (principal); Z20.828 Contact with and (suspected) exposure to other viral communicable diseases ==

== ENCOUNTER 2020-07-02 10:54 | Outpatient (CLI) | payer MEDICARE | END 2020-07-02 10:55 | disposition critical access hospital (66) | LOC: EMS 10:54 | DX: R55 Syncope and collapse (principal) | CPT/HCPCS: A0425; A0429 ==

== ENCOUNTER 2020-07-02 11:18 | Emergency (ER) | payer MEDICARE ==
--- OUTSIDE RECORDS SUMMARY | 2020-07-02 11:41 | EXTERNAL MEDICAL SUMMARY RPT | Continuity of Care Document ---
:1940 Demographics Phone Unavailable Preferred Language Unknown Marital Status Unknown Faith Affiliation Unknown Race Unknown Ethnic Group Unknown Author Organization [facility] Address [address] [id number] Phone Social History date description facility [id number]
--- NOTE | 2020-07-02 11:44 | ED Physician Documentation ---
PD HPI HEENT - Stated complaint Stated Complaint: DIZZY/NEAR SYNCOPE - Chief complaint Chief Complaint: Neuro - History obtained from History obtained from: Patient - History of Present Illness Timing - onset: Today (onset when awoke at 4 am of positional vertigo. Feels better when resting. Has had it recur few times when gets up and moves. No head injury. Some nasal congestion. No focal weaknessed nor numbness in extemities.) Timing - duration: Hours Timing - details: Abrupt onset, Intermittant Location: No: Right ear, Left ear, Throat Worsens: Position (sitting up or standing.) Associated symptoms: Congestion. No: Fever, Facial swelling, Headache Similar symptoms before: Diagnosis (vertigo episodes remotely in the past.) Recently seen: Clinic (Had J&J vaccine about a week ago. [place] some myalgias the day after.), Not recently seen Review of Systems Constitutional: denies: Fever, Chills Nose: reports: Congestion, Sinus pressure / pain. denies: Rhinorrhea / runny nose Throat: denies: Sore throat Cardiac: denies: Chest pain / pressure Respiratory: denies: Cough GI: denies: Vomiting Neurologic: denies: Focal weakness, Numbness, Altered mental status PD PAST MEDICAL HISTORY - Past Medical History Cardiovascular: Hypertension, High cholesterol Respiratory: None Neuro: Dementia, TIA, Headaches, Migraines, Tremors Endocrine/Autoimmune: None GI: GERD MEDICAL SUPPORT SPECIALIST: None : Nocturia, Frequency HEENT: Chronic sinusitis Psych: None Musculoskeletal: Chronic back pain Derm: None - Past Surgical History Past Surgical History: Yes /MEDICAL SUPPORT SPECIALIST: Tubal ligation, Other HEENT: Tonsil/Adenoidectomy Derm: Skin cancer surgery - Present Medications Home Medications: Ambulatory Orders Medication Instructions Recorded Confirmed Meclizine HCl [Antivert] 1 tablet PO Q6H PRN #15 tab 07/02/20 - Allergies Allergies/Adverse Reactions: Allergies Allergy/AdvReac Type Severity Reaction Status Date / Time No Known Drug Allergies Allergy Verified 07/02/20 11:37 - Social History Does the pt smoke?: No Smoking Status: Never smoker Does the pt drink ETOH?: Yes Does the pt have substance abuse?: No - Immunizations Immunizations are current?: Yes - POLST Patient has POLST: No POLST Status: Full Code PD ED PE NORMAL - Vitals Vital signs reviewed: Yes - General General: Alert and oriented X 3, No acute distress, Well developed/nourished - HEENT HEENT: PERRL, EOMI (mild nystagmus to the left. ), Pharynx benign Results - Vitals Vitals: Oxygen O2 Source Room air - Labs Labs: Laboratory Tests 07/02/20 07/02/20 07/02/20 13:20 13:20 13:20 WBC RBC Hgb Hct MCV MCH MCHC RDW Plt Count MPV Neut # (Auto) Lymph # (Auto) [place] # (Auto) Eos # (Auto) Baso # (Auto) Absolute Nucleated RBC Nucleated RBC % Sodium 141 Potassium 3.8 Chloride 105 Carbon Dioxide 27 Anion Gap 9.0 BUN 20 Creatinine 0.8 Estimated GFR (MDRD) 69 L Glucose 99 Calcium 9.5 Magnesium 2.3 Total Bilirubin 0.5 AST 25 ALT 20 Alkaline Phosphatase 79 Troponin I High Sens 5.7 C-Reactive Protein < 1.0 Total Protein 6.5 L Albumin 3.9 Globulin 2.6 Albumin/Globulin Ratio 1.5 Lipase 49 TSH 1.28 Urine Color Urine Clarity Urine pH Ur Specific [place] Urine Protein Urine Glucose (UA) Urine Ketones Urine Occult Blood Urine Nitrite Urine Bilirubin Urine Urobilinogen Ur Leukocyte Esterase Urine RBC Urine WBC Ur Squamous Epith Cells Urine Bacteria 07/02/20 07/02/20 13:40 13:57 WBC 7.6 RBC 4.91 Hgb 14.9 Hct 45.2 MCV 92.1 MCH 30.3 MCHC 33.0 RDW 13.3 Plt Count 204 MPV 10.0 Neut # (Auto) 4.6 Lymph # (Auto) 2.2 [place] # (Auto) 0.5 Eos # (Auto) 0.2 Baso # (Auto) 0.1 Absolute Nucleated RBC 0.00 Nucleated RBC % 0.0 Sodium Potassium Chloride Carbon Dioxide Anion Gap BUN Creatinine Estimated GFR (MDRD) Glucose Calcium Magnesium Total Bilirubin AST ALT Alkaline Phosphatase Troponin I High Sens C-Reactive Protein Total Protein Albumin Globulin Albumin/Globulin Ratio Lipase TSH Urine Color LIGHT YELLOW Urine Clarity CLEAR Urine pH 7.5 Ur Specific [place] 1.010 Urine Protein NEGATIVE Urine Glucose (UA) NEGATIVE Urine Ketones NEGATIVE Urine Occult Blood NEGATIVE Urine Nitrite NEGATIVE Urine Bilirubin NEGATIVE Urine Urobilinogen 0.2 (NORMAL) Ur Leukocyte Esterase NEGATIVE Urine RBC 0-5 Urine WBC 0-3 Ur Squamous Epith Cells FEW Squamous Urine Bacteria Few - Rads (name of study) head CT with contrast Radiology: Prelim report reviewed (no acute process. Normal flow. ), See rad report PD MEDICAL DECISION MAKING - ED course Complexity details: reviewed results (head CT with contrast is normal. ), considered differential (some element of headache and feeling lightheaded. Had gotten J&J vaccine last week, and is concerned about blood clots causing symptoms. ), d/w patient Departure - Departure Disposition: 01 Home, Self Care Clinical Impression: Lightheadedness Condition: Stable Record reviewed to determine appropriate education?: Yes Prescriptions: Meclizine HCl [Antivert] 1 tablet PO Q6H PRN #15 tab PRN Reason: Vertigo Comments: Basic blood tests are appear normal. Your head CT does not show any signs of venous clots or acute structural changes such as tumors or swelling. Stay well-hydrated. Some element of this may be a mild vertigo and you could use some meclizine every 6 hours if needed for vertigo type dizziness. Otherwise the lightheaded component I would say stay well-hydrated and get up slowly and see how you feel over the next few days. Discharge Date/Time: 07/02/20 16:30
[2020-07-02] MEDS ORDERED: SODIUM CHLORIDE 0.9% 1,000 ML IV STA (12:43)
[2020-07-02] MEDS ORDERED: MECLIZINE 12.5 MG TABLET PO STA (12:44)
[2020-07-02] MEDS ORDERED: IOPAMIDOL-300 100 ML VIAL ONE (12:57)
[2020-07-02 13:40] LABS: BASOPHILS # (AUTO) 0.1 10^3/uL (0.0-0.1); BASOPHILS % (AUTO) 0.7 %; EOSINOPHILS # (AUTO) 0.2 10^3/uL (0.0-0.7); HCT - HEMATOCRIT 45.2 % (37.0-47.0); HGB - HEMOGLOBIN 14.9 g/dL (12.0-16.0); LYMPHOCYTES # (AUTO) 2.2 10^3/uL (1.5-3.5); LYMPHOCYTES % (AUTO) 28.9 %; MEAN CORPUSCULAR HEMOGLOBIN 30.3 pg (27.0-31.0); MEAN CORPUSCULAR VOLUME 92.1 fL (81.0-99.0); MONOCYTES # (AUTO) 0.5 10^3/uL (0.0-1.0); MONOCYTES % (AUTO) 6.7 %; NEUTROPHILS # (AUTO) 4.6 10^3/uL (1.5-6.6); NEUTROPHILS % (AUTO) 60.4 %; PLT - PLATELET COUNT 204 10^3/uL (130-450); RED BLOOD COUNT 4.91 10^6/uL (4.20-5.40); RED CELL DISTRIBUTION WIDTH 13.3 % (12.0-15.0); WHITE BLOOD COUNT 7.6 x10^3/uL (4.8-10.8)
[2020-07-02 14:15] LABS: ALBUMIN 3.9 g/dL (3.2-5.5); ALBUMIN/GLOBULIN RATIO 1.5 (1.0-2.2); ALKALINE PHOSPHATASE 79 IU/L (42-121); ALT ALANINE AMINOTRANSFERASE 20 IU/L (10-60); AST ASPARTATE AMINOTRANSFERASE 25 IU/L (10-42); BILIRUBIN,TOTAL 0.5 mg/dL (0.2-1.0); BUN - BLOOD UREA NITROGEN 20 mg/dL (6-20); CALCIUM 9.5 mg/dL (8.5-10.3); CARBON DIOXIDE - CO2 27 mmol/L (21-32); CHLORIDE 105 mmol/L (101-111); CREATININE 0.8 mg/dL (0.4-1.0); CRP - C-REACTIVE PROTEIN < 1.0 mg/dL (0-1.0); GFR - MDRD 69 (>89); GLUCOSE 99 mg/dL (70-100); LIPASE 49 U/L (22-51); MAGNESIUM 2.3 mg/dL (1.7-2.8); POTASSIUM 3.8 mmol/L (3.5-5.0); SODIUM 141 mmol/L (135-145); TOTAL PROTEIN 6.5 g/dL (6.7-8.2)
[2020-07-02 14:22] LABS: BILIRUBIN,URINE NEGATIVE (NEGATIVE); GLUCOSE, URINE (UA) NEGATIVE (NEGATIVE); KETONES,URINE (UA) NEGATIVE (NEGATIVE); LEUKOCYTE ESTERASE, URINE NEGATIVE (NEGATIVE); NITRITE,URINE NEGATIVE (NEGATIVE); OCCULT BLOOD,URINE NEGATIVE (NEGATIVE); PH,URINE 7.5 PH (5.0-7.5); PROTEIN,URINE NEGATIVE (NEGATIVE); UROBILINOGEN,URINE 0.2 (NORMAL) E.U./dL (NORMAL)
[2020-07-02 14:24] LABS: CLARITY,URINE CLEAR (CLEAR)
[2020-07-02] MEDS ORDERED: IOPAMIDOL-300 100 ML VIAL IVP ONE (14:33)
[2020-07-02 14:35] LABS: BACTERIA,URINE Few /HPF (None Seen); RBC,URINE 0-5 /HPF (0-5); SQUAMOUS EPITHELIAL CELL,UR FEW Squamous (<= Few); WBC,URINE 0-3 /HPF (0-5)
--- NOTE | 2020-07-02 14:49 | CT Report ---
PROCEDURE: HEAD W INDICATIONS: some headache, lightheaded; J J vaccine 10 d ago. CONTRAST: IV CONTRAST: Isovue 300 ml: 100 PO CONTRAST: *NO PO CONTRAST TECHNIQUE: 4.5 mm thick angled axial sections acquired from the foramen magnum to the vertex after the administr ation of intravenous contrast. For radiation dose reduction, the following was used: automated expo sure control, adjustment of mA and/or kV according to patient size. COMPARISON: 04/07/2018 and 02/23/2019. FINDINGS: Image quality: Excellent. CSF Spaces: Basal cisterns are patent. No extra-axial fluid collections. Ventricles are normal in size and shape. Brain: No midline shift. No intracranial bleeds or masses. No abnormal intracranial enhancement. M ajor central cerebral arteries demonstrate normal postcontrast enhancement. Dural sinuses demonstrate normal postcontrast enhancement. Richards-white interface appears normal. Skull and face: Calvarium and visualized facial bones appear intact, without suspicious lesions. Sinuses: Visualized sinuses and mastoids are clear. IMPRESSION: No acute intracranial disease process. Reviewed by: Jennifer Prieto MD, PhD on 07/02/2020 2:48 PM PDT Approved by: Jennifer Prieto MD, PhD on 07/02/2020 2:48 PM PDT Station ID: [id number]
[2020-07-02 15:46] VITALS: BP 130/67
== END 2020-07-02 16:30 | disposition home or self-care (01) ==
LOC: EDUNIT# → ED 11:18
DX: R42 Dizziness and giddiness (principal); I10 Essential (primary) hypertension
CPT/HCPCS: 36415; 70460; 80053; 81001; 83690; 83735; 84443; 84484; 85025; 86140; 93005; 99283; 99284; A9270; Q9967

== ENCOUNTER 2020-11-09 18:29 | Outpatient (CLI) | payer MEDICARE | END 2020-11-09 18:30 | disposition home or self-care (01) | LOC: COV 18:29 | PROVIDERS: ATTEND Family Medicine | DX: R05 Cough (principal); R07.0 Pain in throat; J34.89 Other specified disorders of nose and nasal sinuses; R11.2 Nausea with vomiting, unspecified; Z20.822 Contact with and (suspected) exposure to COVID-19 ==

== ENCOUNTER 2020-11-26 09:29 | Outpatient (CLI) | payer MEDICARE | END 2020-11-26 09:30 | disposition EMS.NT | LOC: EMS 09:29 | DX: R42 Dizziness and giddiness (principal) ==

== ENCOUNTER 2020-12-16 07:38 | Outpatient (CLI) | payer MEDICARE | END 2020-12-16 07:39 | disposition EMS.NT | LOC: EMS 07:38 | DX: R53.81 Other malaise (principal) ==

== ENCOUNTER 2020-12-18 05:19 | Outpatient (CLI) | payer MEDICARE | END 2020-12-18 05:20 | disposition EMS.NT | LOC: EMS 05:19 | DX: F41.9 Anxiety disorder, unspecified (principal) ==

== ENCOUNTER 2020-12-27 10:45 | Outpatient (CLI) | payer MEDICARE ==
[2020-12-27 14:34] LABS: BASOPHILS % (AUTO) 0.4 %; EOSINOPHILS # (AUTO) 0.2 10^3/uL (0.0-0.7); EOSINOPHILS % (AUTO) 2.2 %; HCT - HEMATOCRIT 45.1 % (37.0-47.0); HGB - HEMOGLOBIN 14.9 g/dL (12.0-16.0); LYMPHOCYTES # (AUTO) 2.2 10^3/uL (1.5-3.5); LYMPHOCYTES % (AUTO) 28.3 %; MEAN CORPUSCULAR HEMOGLOBIN 30.7 pg (27.0-31.0); MEAN CORPUSCULAR VOLUME 92.8 fL (81.0-99.0); MEAN PLATELET VOLUME 10.2 fL (7.9-10.8); MONOCYTES # (AUTO) 0.7 10^3/uL (0.0-1.0); MONOCYTES % (AUTO) 8.5 %; NEUTROPHILS # (AUTO) 4.8 10^3/uL (1.5-6.6); NEUTROPHILS % (AUTO) 60.3 %; PLT - PLATELET COUNT 217 10^3/uL (130-450); RED BLOOD COUNT 4.86 10^6/uL (4.20-5.40); RED CELL DISTRIBUTION WIDTH 13.2 % (12.0-15.0); WHITE BLOOD COUNT 7.9 x10^3/uL (4.8-10.8)
[2020-12-27 15:35] LABS: ALBUMIN 3.8 g/dL (3.2-5.5); ALBUMIN/GLOBULIN RATIO 1.5 (1.0-2.2); BILIRUBIN,TOTAL 0.6 mg/dL (0.2-1.0); CREATININE 0.8 mg/dL (0.4-1.0); TOTAL PROTEIN 6.4 g/dL (6.7-8.2)
[2020-12-27 15:46] LABS: THYROID STIMULATING HORMONE 1.69 uIU/mL (0.34-5.60)
== END 2020-12-27 10:46 | disposition home or self-care (01) ==
LOC: LAB.S 10:45
PROVIDERS: ATTEND Emergency Medicine
DX: R42 Dizziness and giddiness (principal)
CPT/HCPCS: 36415; 80053; 84443; 85025

== ENCOUNTER 2021-01-18 10:01 | Outpatient (CLI) | payer MEDICARE | END 2021-01-18 10:02 | disposition critical access hospital (66) | LOC: EMS 10:01 | DX: R42 Dizziness and giddiness (principal); R41.0 Disorientation, unspecified | CPT/HCPCS: A0425; A0429 ==

== ENCOUNTER 2021-01-18 10:24 | Emergency (ER) | payer MEDICARE ==
[2021-01-18] MEDS ORDERED: SODIUM CHLORIDE 0.9% 1,000 ML IV STA (11:23)
--- NOTE | 2021-01-18 11:24 | ED Physician Documentation ---
History of Present Illness - Stated complaint Stated Complaint: WEAKNESS - Chief complaint Chief Complaint: Neuro - History obtained from History obtained from: Patient - History of Present Illness Timing: Today - Additonal information Additional information: 81-year-old female with a prior history of hypertension TIA and thyroiditis has developed weakness. She has had this issue previously a number of times and she has been found to be dehydrated. She takes a number of supplements and previously we have found supplements that were a cause of diuresis. She is currently on a number of supplements under the care of a bridge worker and she has not certain of the entire list. She is drinking more than 3 quarts of water per day. She urinates excessively. Review of Systems Constitutional: denies: Fever Eyes: denies: Decreased vision Ears: denies: Ear pain Nose: denies: Congestion Throat: denies: Sore throat Cardiac: denies: Chest pain / pressure, Palpitations Respiratory: denies: Dyspnea, Cough GI: denies: Abdominal Pain, Nausea, Vomiting : denies: Dysuria, Frequency Skin: denies: Rash Musculoskeletal: denies: Neck pain, Back pain, Extremity pain Neurologic: reports: Generalized weakness. denies: Focal weakness, Numbness PD PAST MEDICAL HISTORY - Past Medical History Cardiovascular: Hypertension, High cholesterol Respiratory: None Neuro: Dementia, TIA, Headaches, Migraines, Tremors Endocrine/Autoimmune: None GI: GERD PLANT BUYER: None : Nocturia, Frequency HEENT: Chronic sinusitis Psych: None Musculoskeletal: Chronic back pain Derm: None - Past Surgical History Past Surgical History: Yes /PLANT BUYER: Tubal ligation, Other HEENT: Tonsil/Adenoidectomy Derm: Skin cancer surgery - Present Medications Home Medications: Ambulatory Orders Medication Instructions Recorded Confirmed No Known Home Medications 01/18/21 01/18/21 - Allergies Allergies/Adverse Reactions: Allergies Allergy/AdvReac Type Severity Reaction Status Date / Time No Known Drug Allergies Allergy Verified 01/18/21 10:27 - Social History Does the pt smoke?: No Smoking Status: Never smoker Does the pt drink ETOH?: Yes Does the pt have substance abuse?: No - Immunizations Immunizations are current?: Yes - POLST Patient has POLST: No POLST Status: Full Code PD ED PE NORMAL - Vitals Vital signs reviewed: Yes (Hypertensive) - General General: Alert and oriented X 3, No acute distress, Well developed/nourished - HEENT HEENT: Atraumatic, PERRL, EOMI - Neck Neck: Supple, no meningeal sign, No bony TTP - Cardiac Cardiac: RRR, No murmur - Respiratory Respiratory: No respiratory distress, Clear bilaterally - Abdomen Abdomen: Normal bowel sounds, Soft, Non tender, Non distended, No organomegaly - Back Back: No CVA TTP, No spinal TTP - Derm Derm: Normal color, Warm and dry, No rash - Extremities Extremities: No deformity, No edema - Neuro Neuro: Alert and oriented X 3, weight tester 2-12 intact, No motor deficit, No sensory deficit, Normal speech Eye Opening: Spontaneous Motor: Obeys Commands Verbal: Oriented GCS Score: 15 - Psych Psych: Normal mood, Normal affect Results - Vitals Vitals: Vital Signs - 24 hr 01/18/21 01/18/21 01/18/21 10:28 11:20 13:00 Temperature 37 C 36.5 C Heart Rate 69 68 70 Respiratory 18 17 12 Rate Blood Pressure 152/90 H 157/93 H 138/72 H O2 Saturation 99 100 98 Oxygen O2 Source Room air - Labs Labs: Laboratory Tests 01/18/21 01/18/21 01/18/21 11:35 11:35 11:46 WBC 6.4 RBC 5.00 Hgb 15.4 Hct 45.7 MCV 91.4 MCH 30.8 MCHC 33.7 RDW 13.4 Plt Count 181 MPV 9.7 Neut # (Auto) 3.9 Lymph # (Auto) 1.7 [place] # (Auto) 0.6 Eos # (Auto) 0.2 Baso # (Auto) 0.0 Absolute Nucleated RBC 0.00 Nucleated RBC % 0.0 Sodium 140 Potassium 3.8 Chloride 103 Carbon Dioxide 28 Anion Gap 9.0 BUN 12 Creatinine 0.8 Estimated GFR (MDRD) 69 L Glucose 94 Calcium 9.1 Total Bilirubin 0.8 AST 27 ALT 22 Alkaline Phosphatase 94 Total Protein 6.7 Albumin 4.1 Globulin 2.6 Albumin/Globulin Ratio 1.6 Lipase 52 H Urine Color YELLOW Urine Clarity CLEAR Urine pH 6.5 Ur Specific [place] <=1.005 Urine Protein NEGATIVE Urine Glucose (UA) NEGATIVE Urine Ketones NEGATIVE Urine Occult Blood TRACE-INTA Urine Nitrite NEGATIVE Urine Bilirubin NEGATIVE Urine Urobilinogen 0.2 (NORMAL) Ur Leukocyte Esterase NEGATIVE Ur Microscopic Review NOT INDICATED Urine Culture Comments NOT INDICATED Procedures - IVC sono (time) 1120 Bedside IVC sono: IVC measures (cm) (0.92), IVC collapsed c insp (cm) (complete), Dehydration (est 2 liter deficit) PD MEDICAL DECISION MAKING - ED course Complexity details: reviewed old records, reviewed results, re-evaluated patient, considered differential, d/w patient ED course: 81-year-old female again with weakness is again found to be dehydrated on interrogation the inferior vena cava on the order of 2 L and she is administered 2 L of normal saline. I have asked the patient to review all of her supplements with her bridge worker for any that may be a potential diuretic. Departure - Departure Disposition: 01 Home, Self Care Clinical Impression: Dehydration Condition: Stable Instructions: ED Dehydration Follow-Up: Estefany Miles ARNP [Primary Care Provider] - Discharge Date/Time: 01/18/21 13:20
[2021-01-18 11:39] LABS: BASOPHILS % (AUTO) 0.6 %; EOSINOPHILS # (AUTO) 0.2 10^3/uL (0.0-0.7); EOSINOPHILS % (AUTO) 2.5 %; HCT - HEMATOCRIT 45.7 % (37.0-47.0); HGB - HEMOGLOBIN 15.4 g/dL (12.0-16.0); LYMPHOCYTES # (AUTO) 1.7 10^3/uL (1.5-3.5); LYMPHOCYTES % (AUTO) 26.6 %; MEAN CORPUSCULAR HEMOGLOBIN 30.8 pg (27.0-31.0); MEAN CORPUSCULAR HGB CONC 33.7 g/dL (32.0-36.0); MEAN CORPUSCULAR VOLUME 91.4 fL (81.0-99.0); MEAN PLATELET VOLUME 9.7 fL (7.9-10.8); MONOCYTES # (AUTO) 0.6 10^3/uL (0.0-1.0); MONOCYTES % (AUTO) 9.3 %; NEUTROPHILS # (AUTO) 3.9 10^3/uL (1.5-6.6); NEUTROPHILS % (AUTO) 60.8 %; PLT - PLATELET COUNT 181 10^3/uL (130-450); RED CELL DISTRIBUTION WIDTH 13.4 % (12.0-15.0); WHITE BLOOD COUNT 6.4 x10^3/uL (4.8-10.8)
[2021-01-18 11:54] LABS: ALBUMIN 4.1 g/dL (3.2-5.5); ALBUMIN/GLOBULIN RATIO 1.6 (1.0-2.2); BILIRUBIN,TOTAL 0.8 mg/dL (0.2-1.0); CALCIUM 9.1 mg/dL (8.5-10.3); CREATININE 0.8 mg/dL (0.4-1.0); POTASSIUM 3.8 mmol/L (3.5-5.0); TOTAL PROTEIN 6.7 g/dL (6.7-8.2)
[2021-01-18 12:25] LABS: BILIRUBIN,URINE NEGATIVE (NEGATIVE); GLUCOSE, URINE (UA) NEGATIVE (NEGATIVE); KETONES,URINE (UA) NEGATIVE (NEGATIVE); LEUKOCYTE ESTERASE, URINE NEGATIVE (NEGATIVE); NITRITE,URINE NEGATIVE (NEGATIVE); OCCULT BLOOD,URINE TRACE-INTA (NEGATIVE); PH,URINE 6.5 PH (5.0-7.5); PROTEIN,URINE NEGATIVE (NEGATIVE); UROBILINOGEN,URINE 0.2 (NORMAL) E.U./dL (NORMAL)
[2021-01-18 12:28] LABS: CLARITY,URINE CLEAR (CLEAR)
[2021-01-18 13:04] VITALS: BP 138/72
== END 2021-01-18 13:20 | disposition home or self-care (01) ==
LOC: EDUNIT# → ED 10:24
DX: I10 Essential (primary) hypertension (principal); E86.0 Dehydration
CPT/HCPCS: 36415; 80053; 81001; 81003; 83690; 85025; 87086; 96360; 99282

== ENCOUNTER 2021-05-13 15:08 | Outpatient (CLI) | payer MEDICARE ==
--- NOTE | 2021-05-13 17:32 | Ultrasound Report ---
PROCEDURE: Head or Neck Soft Tissue INDICATIONS: MULTIPLE THYROID NODULES TECHNIQUE: Real-time scanning was performed of the thyroid gland, with image documentation. COMPARISON: 05/09/2016. FINDINGS: Right: Thyroid lobe measures 4.7 x 1.5 x 1.3 cm, and is homogeneous in echotexture. Left: Thyroid lobe measures 4.9 x 2.1 x 1.4 cm, and is homogenous in echotexture. Isthmus: 0.3 cm thick. A few additional subcentimeter thyroid nodules. Nodule number: One Location: Left mid Size: 2.3 x 1.5 x 1.4 cm. (Previously 2.2 x 1.7 x 1.5 cm). Composition: Mixed cystic and solid Echogenicity: Isoechoic Shape: wider than tall. Margins: Smooth Echogenic foci: None Total points: 2 ACR TI-RADS category: TR 2, not suspicious Nodule number: Two Location: Left superior Size: 1.2 x 0.9 x 0.6 cm. Composition: Solid Echogenicity: Isoechoic Shape: wider than tall. Margins: Smooth Echogenic foci: None Total points: 3 ACR TI-RADS category: TR 3, mildly suspicious IMPRESSION: Left superior thyroid nodule measuring 1.2 cm. TR 3, mildly suspicious. Follow-up thyroid ultrasound is not required. ACR TI-RADS definitions and recommendations: TI-RADS 1 (benign): 0 points. FNA not needed. TI-RADS 2 (not suspicious): 2 points. FNA not needed. TI-RADS 3 (mildly suspicious): 3 points. "FNA if 2.5 cm or larger, follow up if 1.5 cm or larger (at 1, 3, and 5 years). TI-RADS 4 (moderately suspicious): 4-6 points. "FNA if 1.5 cm or larger, follow up if 1 cm or larger (at 1, 2, 3, and 5 years). TI-RADS 5 (highly suspicious): 7 points or more. "FNA if 1 cm or larger, follow up if 0.5 cm or larger (every year for 5 years). Reviewed by: Adelfo Loyd MD on 05/13/2021 5:30 PM PST Approved by: Adelfo Loyd MD on 05/13/2021 5:30 PM PST Station ID: [id number]
== END 2021-05-13 15:09 | disposition home or self-care (01) ==
LOC: DI 15:08
PROVIDERS: ATTEND Registered Nurse
DX: E04.2 Nontoxic multinodular goiter (principal)

== ENCOUNTER 2021-05-24 10:49 | Outpatient (CLI) | payer MEDICARE ==
--- NOTE | 2021-05-24 11:42 | DEXA Report ---
PROCEDURE: Dexa Spine and/or Hip INDICATIONS: POST MENOPAUSAL STATUS TECHNIQUE: Dual energy x-ray absorptiometry (DXA) was performed on a jellyfish System. Regions measur ed are the AP Spine, femoral neck, and if needed forearm. COMPARISON: 05/11/2016 FINDINGS: Lumbar Spine: Bone Mineral Density 0.891, previously 0.853 g/cm/cm,T score -2.4, osteopenia Left Hip: Bone Mineral Density 0.688, previously 0.723 g/cm/cm,T score -2.5, osteoporosis (T score greater or equal to -1.0: NORMAL) (T score from -1.1 to -2.4: OSTEOPENIA) (T score less than or equal to -2.5 to: OSTEOPOROSIS) Impression: Left hip osteoporosis, slightly worse than the prior exam Patients with diagnosis of osteoporosis or osteopenia should have regular bone mineral density assess ment. For those eligible for Medicare, routine testing is allowed once every 2 years. Testing frequ ency can be increased for patients who have rapidly progressing disease or for those who are receivin g medical therapy to restore bone mass. Reviewed by: Robert Eng MD on 05/24/2021 10:41 AM [facility] Approved by: Robert Eng MD on 05/24/2021 10:41 AM [facility] Station ID: [id number]
== END 2021-05-24 10:50 | disposition home or self-care (01) ==
LOC: DI 10:49
PROVIDERS: ATTEND Registered Nurse
DX: Z78.0 Asymptomatic menopausal state (principal); M81.0 Age-related osteoporosis without current pathological fracture

== ENCOUNTER 2021-06-27 08:00 | Outpatient (CLI) | payer MEDICARE | END 2021-06-27 23:59 | disposition home or self-care (01) | LOC: LAB.S 08:00 | PROVIDERS: ATTEND Physician Assistant | DX: R11.0 Nausea (principal); R42 Dizziness and giddiness ==

== ENCOUNTER 2021-06-27 19:20 | Outpatient (CLI) | payer MEDICARE | END 2021-06-27 23:59 | disposition critical access hospital (66) | LOC: EMS 19:20 | DX: R00.2 Palpitations (principal) | CPT/HCPCS: A0425; A0429 ==

== ENCOUNTER 2021-06-27 19:51 | Emergency (ER) | payer MEDICARE ==
--- NOTE | 2021-06-27 20:35 | ED Physician Documentation ---
History of Present Illness - Stated complaint Stated Complaint: HEART POUNDING, NAUSEA - Chief complaint Chief Complaint: Cardiac - History obtained from History obtained from: Patient - History of Present Illness Timing: Today Pain level max: 0 Pain level now: 0 - Additonal information Additional information: Patient is an 81-year-old female who presents to the emergency department after having palpitations and nausea earlier today. She states it started after moving heavy furniture. Did not have any chest pain or shortness of breath. She described it as a pounding sensation in her chest. She states currently she is feeling better. No cardiac history. Has a history of Hamlet's thyroiditis. Nothing seems to make her symptoms better or worse. Symptoms started about 9 hours prior to arrival. She went to the walk-in clinic, but their EKG machine was broken, so they sent her here for evaluation. Review of Systems Constitutional: denies: Fever, Chills Nose: denies: Rhinorrhea / runny nose, Congestion Throat: denies: Sore throat Cardiac: reports: Palpitations. denies: Chest pain / pressure, Calf pain Respiratory: denies: Dyspnea, Cough, Hemoptysis, Wheezing GI: reports: Nausea. denies: Vomiting, Diarrhea : denies: Dysuria Skin: denies: Rash Musculoskeletal: denies: Neck pain, Back pain Neurologic: denies: Headache, Head injury PD PAST MEDICAL HISTORY - Past Medical History Past Medical History: Yes Cardiovascular: Hypertension, High cholesterol Respiratory: None Neuro: Dementia, TIA, Headaches, Migraines, Tremors Endocrine/Autoimmune: None GI: GERD PIECE MAKER: None : Nocturia, Frequency HEENT: Chronic sinusitis Psych: None Musculoskeletal: Chronic back pain Derm: None - Past Surgical History Past Surgical History: Yes /PIECE MAKER: Tubal ligation, Other HEENT: Tonsil/Adenoidectomy Derm: Skin cancer surgery - Present Medications Home Medications: Ambulatory Orders Medication Instructions Recorded Confirmed No Known Home Medications 01/18/21 06/27/21 - Allergies Allergies/Adverse Reactions: Allergies Allergy/AdvReac Type Severity Reaction Status Date / Time No Known Drug Allergies Allergy Verified 06/27/21 19:55 - Social History Does the pt smoke?: No Smoking Status: Never smoker Does the pt drink ETOH?: Yes Does the pt have substance abuse?: No - Immunizations Immunizations are current?: Yes - POLST Patient has POLST: No POLST Status: Full Code PD ED PE NORMAL - Vitals Vital signs reviewed: Yes - General General: Alert and oriented X 3, No acute distress - HEENT HEENT: PERRL, Moist mucous membranes - Neck Neck: Supple, no meningeal sign - Cardiac Cardiac: RRR, No murmur, Strong equal pulses - Respiratory Respiratory: No respiratory distress, Clear bilaterally - Abdomen Abdomen: Soft, Non tender, Non distended - Back Back: No CVA TTP, No spinal TTP - Derm Derm: Warm and dry - Extremities Extremities: No edema, No calf tenderness / cord - Neuro Neuro: Alert and oriented X 3 - Psych Psych: Normal mood, Normal affect Results - Vitals Vitals: Vital Signs - 24 hr 06/27/21 06/27/21 19:55 20:59 Temperature 36.1 C L Heart Rate 67 64 Respiratory 16 12 Rate Blood Pressure 149/82 H 143/73 H O2 Saturation 98 97 Oxygen O2 Source Room air - EKG (time done) 1957 Rate: Rate (enter#) (66) Rhythm: NSR [place]: Normal Intervals: Normal [place] QRS: Normal Ischemia: Normal ST segments - Labs Labs: Laboratory Tests 06/27/21 06/27/21 06/27/21 20:26 20:26 20:26 WBC 6.9 RBC 4.47 Hgb 14.0 Hct 41.6 MCV 93.1 MCH 31.3 H MCHC 33.7 RDW 13.4 Plt Count 204 MPV 9.8 Neut # (Auto) 3.9 Lymph # (Auto) 2.1 [place] # (Auto) 0.7 Eos # (Auto) 0.2 Baso # (Auto) 0.0 Absolute Nucleated RBC 0.00 Nucleated RBC % 0.0 Sodium 141 Potassium 3.7 Chloride 103 Carbon Dioxide 27 Anion Gap 11.0 BUN 16 Creatinine 0.7 Estimated GFR (MDRD) 80 L Glucose 101 H Calcium 9.3 Total Bilirubin 0.7 AST 26 ALT 24 Alkaline Phosphatase 77 Troponin I High Sens 7.1 Total Protein 6.9 Albumin 3.9 Globulin 3.0 Albumin/Globulin Ratio 1.3 Lipase 48 - Rads (name of study) cxr Radiology: Final report received, EMP read contemporaneously, See rad report (No acute abnormality) PD MEDICAL DECISION MAKING - ED course Complexity details: reviewed results, re-evaluated patient, considered differential (No ST elevation NH, no aortic dissection, no PE, no tension pn eumothorax, no aortic aneurysm), d/w patient ED course: Patient is well-appearing, nontoxic. Afebrile. No hypoxia. No respiratory distress. No significant findings on laboratory testing, EKG or chest x-ray. Patient is fully asymptomatic. We will have her follow-up with her doctor for further care. Unclear etiology of her symptoms today. No significant findings on telemetry. Patient counseled regarding signs and symptoms for which I believe and urgent re-evaluation would be necessary. Patient with good understanding of and agreement to plan and is comfortable going home at this time This document was made in part using voice recognition software. While efforts are made to proofread this document, sound alike and grammatical errors may occur. Departure - Departure Disposition: 01 Home, Self Care Clinical Impression: Palpitations, Nausea Condition: Good Instructions: ED Palpitations Follow-Up: Estefany Miles ARNP [Primary Care Provider] - Within 1 week Comments: Your testing does not show any acute abnormalities today. Please follow-up with your doctor for further care. Return if you worsen.
[2021-06-27 20:36] LABS: BASOPHILS % (AUTO) 0.4 %; EOSINOPHILS # (AUTO) 0.2 10^3/uL (0.0-0.7); HCT - HEMATOCRIT 41.6 % (37.0-47.0); LYMPHOCYTES # (AUTO) 2.1 10^3/uL (1.5-3.5); LYMPHOCYTES % (AUTO) 30.5 %; MEAN CORPUSCULAR HEMOGLOBIN 31.3 pg (27.0-31.0); MEAN CORPUSCULAR HGB CONC 33.7 g/dL (32.0-36.0); MEAN CORPUSCULAR VOLUME 93.1 fL (81.0-99.0); MEAN PLATELET VOLUME 9.8 fL (7.9-10.8); MONOCYTES # (AUTO) 0.7 10^3/uL (0.0-1.0); NEUTROPHILS # (AUTO) 3.9 10^3/uL (1.5-6.6); NEUTROPHILS % (AUTO) 55.8 %; PLT - PLATELET COUNT 204 10^3/uL (130-450); RED BLOOD COUNT 4.47 10^6/uL (4.20-5.40); RED CELL DISTRIBUTION WIDTH 13.4 % (12.0-15.0); WHITE BLOOD COUNT 6.9 x10^3/uL (4.8-10.8)
[2021-06-27 20:46] LABS: ALBUMIN 3.9 g/dL (3.2-5.5); ALBUMIN/GLOBULIN RATIO 1.3 (1.0-2.2); BILIRUBIN,TOTAL 0.7 mg/dL (0.2-1.0); CALCIUM 9.3 mg/dL (8.5-10.3); CREATININE 0.7 mg/dL (0.4-1.0); POTASSIUM 3.7 mmol/L (3.5-5.0); TOTAL PROTEIN 6.9 g/dL (6.7-8.2)
--- NOTE | 2021-06-27 21:21 | XRAY Report ---
PROCEDURE: Chest 1 View X-Ray INDICATIONS: Chest Pain TECHNIQUE: One view of the chest was acquired. COMPARISON: 01/04/2019 FINDINGS: Surgical changes and devices: None. Lungs and pleura: No pleural effusions or pneumothorax. Lungs are clear. Mediastinum: Mediastinal contours appear normal. Heart size is normal. Bones and chest wall: No suspicious bony lesions. Overlying soft tissues appear unremarkable. IMPRESSION: Chest without acute cardiopulmonary abnormalities. No focal airspace disease. Reviewed by: Jeff Cook MD on 06/27/2021 9:20 PM PDT Approved by: Jeff Cook MD on 06/27/2021 9:20 PM PDT Station ID: [id number]
[2021-06-27 21:48] VITALS: BP 141/72
== END 2021-06-27 21:48 | disposition home or self-care (01) ==
LOC: EDUNIT# → ED 19:51
DX: R00.2 Palpitations (principal); R11.0 Nausea; I10 Essential (primary) hypertension; R42 Dizziness and giddiness
CPT/HCPCS: 36415; 80053; 83690; 84484; 85025; 93005; 99284

== ENCOUNTER 2021-11-17 05:51 | Day surgery (SDC) | payer MEDICARE ==
[2021-11-17] MEDS ORDERED: KETOROLAC 0.45% OPHTH DROPS ONE (06:22)
[2021-11-17] MEDS ORDERED: PHENYLEPHRINE 2.5% OPHTH 2 ML DROPS ONE (06:23)
[2021-11-17] MEDS ORDERED: LACTATED RINGERS 1,000 ML IV ONE (06:30)
[2021-11-17] MEDS ORDERED: CYCLOPENTOLATE 1% OPHTH DROPS 2 ML LEFTEYE ONE (06:36)
[2021-11-17] MEDS ORDERED: PROPARACAINE 0.5% OPHTH DROPS 15 ML LEFTEYE ONE (06:36)
[2021-11-17] MEDS ORDERED: BSS/LIDOCAINE/EPINEPHRINE 1 ML VIAL ONE (07:13)
[2021-11-17] MEDS ORDERED: TIMOLOL 0.5% OPHTH DROPS ONE (07:13)
[2021-11-17] MEDS ORDERED: BRIMONIDINE 0.2% OPHTH DROPS 5 ML ONE (07:13)
[2021-11-17] MEDS ORDERED: EPINEPHrine 1 MG/ML AMP ONE (07:13)
[2021-11-17] MEDS ORDERED: TRIAMCIN/MOXIFLOX OPHTHALMIC 0.6 ML VIAL IO ONE ×4 (07:13→08:57)
[2021-11-17] MEDS ORDERED: VANCOMYCIN OPHTH (TOPICAL) 10 MG/ML SYRINGE ONE (07:14)
[2021-11-17] MEDS ORDERED: MIDAZOLAM 2 MG/2 ML VIAL ONE (07:26)
[2021-11-17] MEDS ORDERED: BSS/LIDOCAINE/EPINEPHRINE 1 ML SYRINGE IO ONE (07:35)
[2021-11-17] MEDS ORDERED: EPINEPHrine 1 MG/ML AMP IR ONE (07:35)
[2021-11-17] MEDS ORDERED: BRIMONIDINE 0.2% OPHTH DROPS 5 ML OPTH ONE (07:35)
[2021-11-17] MEDS ORDERED: TIMOLOL 0.5% OPHTH DROPS OPTH ONE (07:35)
[2021-11-17] MEDS ORDERED: PROPARACAINE 0.5% OPHTH DROPS 15 ML EACHEYE ONE (07:36)
[2021-11-17] MEDS ORDERED: VANCOMYCIN OPHTH (TOPICAL) 10 MG/ML SYRINGE TOP ONE (07:37)
[2021-11-17] MEDS ORDERED: LACTATED RINGERS 800 ML IV ONE (08:00)
--- NOTE | 2021-11-17 08:39 | ANESTHESIA ---
Pre-Anesthesia VS, & Labs - Diagnosis left nuclear cataract - Procedure left extraction of cataract with lens implant Vital Signs: Temp Pulse Resp BP Pulse Ox 36.4 C L 76 11 L 122/75 95 11/17/21 06:30 11/17/21 06:30 11/17/21 06:30 11/17/21 06:30 11/17/21 06:30 Height: 5 ft 3 in Weight (kg): 78.02 kg Body Mass Index: 30.4 BMI Classification: Obese - NPO >8 hours - Is Patient ?: No Home Medications and Allergies No Known Home Medications 01/18/21 Allergies/Adverse Reactions: Allergies Allergy/AdvReac Type Severity Reaction Status Date / Time No Known Drug Allergies Allergy Verified 11/17/21 06:41 Anes History & Medical History - Anesthetic History Anesthesia Complications: reports: No previous complications Family history of Anesthesia Complications: Denies Family history of Malignant Hyperthermia: Denies - Medical History Cardiovascular: reports: Hypertension Pulmonary: reports: None Gastrointestinal: reports: None Urinary: reports: Nocturia, Frequency Neuro: reports: Dementia, TIA, Headaches, Migraines, Tremors Musculoskeletal: Endocrine/Autoimmune: reports: None, Other (Hashimotors) Skin: reports: None Smoking Status: Never smoker History of Cancer?: No - Surgical History Eyes Ears Nose Throat (EENT): reports: Cataracts, Tonsil/Adenoidectomy Gynecologic: reports: Tubal ligation, Other Dermatologic: reports: Skin cancer surgery Exam General: Alert, Oriented x3, Cooperative, No acute distress Dental: Poor dentition Mouth Openin Fingerbreadth Neck Mobility: Normal Mallampati classification: II Thyromental Distance: 4-6 cm Respiratory: Lungs clear Cardiovascular: Regular rate Mental/Cognitive Status: Alert/Oriented X3, Normal for patient Cognitive Status: Within normal limits Plan Anesthesia Type: MAC Consent for Procedure(s) Verified and Reviewed: Yes Code Status: Attempt Resuscitation ASA classification: 2-Mild systemic disease Is this case an emergency?: No
[2021-11-17 08:40] VITALS: BP 136/69
--- NOTE | 2021-11-17 08:44 | OPERATIVE REPORT ---
Operative Report - Other Other Information/Narrative: Date of Surgery: 11/17/21 Preop Dx: Visually significant cataract left eye. Cataract surgery was performed in the right eye on . Postop Dx: Same Procedure: Phacoemulsification with posterior chamber intraocular lens implant left eye Surgeon: Dr. Socut Winston Anesthesia: Monitored anesthesia care Complications: None Operative Indications: This is a 81-year-old F with progressive vision loss in the left eye due to 2+ nuclear sclerotic and 2+ cortical cataract. Best corrected visual acuity was 20/40 with glare to 20/100 vision in the left eye. Indications for surgery were: - Overall decrease in vision - Difficulty seeing words on a computer screen - Difficulty driving in low light or at night - Difficulty driving at night because of headlights from other vehicles - Difficulty with glare or bright lights in any situation The patient was consented at length concerning the risks and benefits of cataract surgery after which the patient expressed a desire to proceed with surgery. Operative Procedure: The patient was taken into OR#3 and placed under monitored anesthesia care. A surgical time-out was conducted confirming correct patient, correct procedure, and correct surgical site. The patient was given topical anesthesia and then prepped and draped in the usual sterile fashion. The eye was entered at the 6 and 3 oclock positions. Intracameral Shugarcaine was injected into the anterior chamber followed by a dispersive viscoelastic. A continuous-tear curvilinear capsulorhexis was performed. The nucleus was h ydrodissected and phacoemulsified. The cortex was evacuated using automated infusion and aspiration. A cohesive viscoelastic was injected into the capsular bag and a 19.0 diopter intraocular lens was inserted into the bag. Infusion and aspiration were used to evacuate the viscoelastic materials from the eye. The wounds were hydrated and the eye inflated to physiologic pressure using balanced salt solution. Approximately 0.25ml of a mixture of triamcinolone and moxifloxacin was injected trans-sclerally into the vitreous in the inferotemporal quadrant using a 30 gauge cannula. An additional 0.55ml of a mixture of triamcinolone and moxifloxacin was injected subconjunctivally in the superior quadrant for infection and inflammation prophylaxis. Wound integrity was checked with Weck-Leah sponges. The patient was taken from the operating room in good condition and given post-op instructions.
--- NOTE | 2021-11-17 09:14 | ANESTHESIA POST OP EVALUATION ---
Anesthesia Post Eval - Post Anesthesia Eval Vitals: Last Vital Signs Temp 36.3 C L 11/17/21 08:15 Pulse 67 11/17/21 08:15 Resp 12 11/17/21 08:15 BP 136/69 H 11/17/21 08:15 Pulse Ox 99 11/17/21 08:15 CV Function Including HR & BP: Stable Pain Control: Satisfactory Nausea & Vomiting: Negative Mental Status: Baseline Respiratory Status: Airway Patent Hydration Status: Satisfactory Anesthesia Complications: None
== END 2021-11-17 05:52 | disposition home or self-care (01) ==
LOC: SDS 05:51
PROVIDERS: ATTEND Ophthalmology
DX: H25.12 Age-related nuclear cataract, left eye (principal); Z98.41 Cataract extraction status, right eye; E66.9 Obesity, unspecified; Z68.30 Body mass index [BMI] 30.0-30.9, adult
CPT/HCPCS: 66984; A9270; J7120; V2632

== ENCOUNTER 2021-11-24 15:51 | Outpatient (CLI) | payer MEDICARE | END 2021-11-24 15:52 | disposition left against medical advice (07) | LOC: EMS 15:51 | DX: R00.2 Palpitations (principal) ==

== ENCOUNTER 2022-02-21 13:13 | Outpatient (CLI) | payer MEDICARE ==
--- NOTE | 2022-02-22 10:23 | Ultrasound Report ---
LIMITED ULTRASOUND OF RIGHT BREAST: 02/21/2022 CLINICAL: Patient returns for a 6 month follow up of the right breast. Comparison is made to exams dated: 08/08/2021 ultrasound - [facility], 07/22/2021 ultrasoun d, 07/22/2021 ultrasound, and 07/22/2021 mammogram - [facility]. Color flow and real-time ultrasound of the right breast 6 o'clock region were performed. Richards scale images of the real-time examination were reviewed. No significant abnormalities were seen sonographically in the right breast in the region of possible lesion. No mass appreciated. No cyst seen. IMPRESSION: NEGATIVE There is no sonographic evidence of malignancy. Prior mammographic finding could represent overlapping fibroglandular tissue. Mammogram would be help ful to demonstrate stability. Patient previously declined mammographic evaluations. Exam findings were conveyed to the patient. Patient is advised to monitor for significant change. Cli nical follow-up as needed. This exam was interpreted at Station ID: [id number]. Electronically Signed By: Adelfo Loyd M.D. slc/:02/21/2022 14:08:20 Ultrasound BI-RADS: 1 Negative BI-RADS CATEGORY: (1) - 1 Unspecified - other recall n/a LATERALITY: (B)
== END 2022-02-21 13:14 | disposition home or self-care (01) ==
LOC: DI 13:13
PROVIDERS: ATTEND Registered Nurse
DX: N63.15 Unspecified lump in the right breast, overlapping quadrants (principal); R92.8 Other abnormal and inconclusive findings on diagnostic imaging of breast

== ENCOUNTER 2022-03-12 17:52 | Emergency (ER) | payer MEDICARE ==
[2022-03-12] MEDS ORDERED: ASPIRIN CHEW 81 MG TABLET PO STA (18:19)
[2022-03-12] MEDS ORDERED: NITROGLYCERIN SL 0.4 MG TABLET SL STA (18:19)
--- NOTE | 2022-03-12 18:22 | ED Physician Documentation ---
History of Present Illness - Stated complaint Stated Complaint: CHEST PRESSURE - Chief complaint Chief Complaint: Cardiac - Additonal information Additional information: 82-year-old female presents to the emergency department for evaluation of chest pressure. Symptoms began this morning. She reports that is just this heavy pressure in her chest. She has had some vague jaw discomfort. She denies that this is exertional and reports that when she is walking she seems to notice the pain less perhaps because she is distracted. She does have a history of hypertension as well as Hamlet's. Was recently diagnosed with adrenal insufficiency. She is not on hydrocortisone. She is not taking any thyroid medication nor she taking any blood pressure medication. This is managed with supplements and diet. No history of diabetes never smoker. She denies that she is ever had a myocardial infarction. Denies fevers, shortness of air. No abdominal pain dysuria or urinary symptoms Review of Systems Constitutional: denies: Fever, Chills Nose: reports: Reviewed and negative Throat: reports: Reviewed and negative Cardiac: reports: Reviewed and negative Respiratory: reports: Reviewed and negative GI: reports: Reviewed and negative : reports: Reviewed and negative Skin: reports: Reviewed and negative PD PAST MEDICAL HISTORY - Past Medical History Cardiovascular: Hypertension Respiratory: None Neuro: Dementia, TIA, Headaches, Migraines, Tremors Endocrine/Autoimmune: None, Other (Hashimotors) GI: None AUTO DAMAGE APPRAISER: None : Nocturia, Frequency HEENT: Chronic sinusitis Psych: Anxiety, Panic attacks Musculoskeletal:  Derm: None - Past Surgical History Past Surgical History: Yes /AUTO DAMAGE APPRAISER: Tubal ligation, Other HEENT: Cataracts, Tonsil/Adenoidectomy Derm: Skin cancer surgery - Present Medications Home Medications: Ambulatory Orders Medication Instructions Recorded Confirmed Nitroglycerin [Nitrostat] 0.4 mg SL Q5MIN PRN #25 tablet 03/12/22 - Allergies Allergies/Adverse Reactions: Allergies Allergy/AdvReac Type Severity Reaction Status Date / Time No Known Drug Allergies Allergy Verified 03/12/22 18:06 - Social History Does the pt smoke?: No Smoking Status: Never smoker Does the pt drink ETOH?: Yes Does the pt have substance abuse?: No - Immunizations Immunizations are current?: Yes - POLST Patient has POLST: No POLST Status: Full Code PD ED PE NORMAL - General General: Alert and oriented X 3, No acute distress, Well developed/nourished - HEENT HEENT: PERRL - Neck Neck: Supple, no meningeal sign, No adenopathy - Cardiac Cardiac: RRR, No murmur - Respiratory Respiratory: No respiratory distress, Clear bilaterally - Abdomen Abdomen: Normal bowel sounds, Soft - Extremities Extremities: No deformity - Neuro Neuro: Alert and oriented X 3 Eye Opening: Spontaneous Motor: Obeys Commands Verbal: Oriented GCS Score: 15 Results - Vitals Vitals: Vital Signs - 24 hr 03/12/22 03/12/22 03/12/22 18:01 18:36 19:06 Temperature 36.3 C L Heart Rate 70 66 60 Respiratory 18 13 15 Rate Blood Pressure 142/90 H 109/72 126/75 O2 Saturation 93 96 98 03/12/22 19:21 Temperature Heart Rate 65 Respiratory 15 Rate Blood Pressure 135/78 H O2 Saturation 98 Oxygen O2 Source Room air - EKG (time done) 1812 Rate: Rate (enter#) (61) Rhythm: NSR [place]: Normal Intervals: Normal [place]. No: Prolonged QT QRS: Normal Ischemia: Q waves (Inferior leads) Compare to prior EKG: Unchanged from prior EKG Computer interpretation: Agree with computer - Labs Labs: Laboratory Tests 03/12/22 03/12/22 03/12/22 18:22 18:22 18:22 WBC 6.8 RBC 4.93 Hgb 14.7 Hct 45.4 MCV 92.1 MCH 29.8 MCHC 32.4 RDW 13.0 Plt Count 221 MPV 9.6 Neut # (Auto) 3.3 Lymph # (Auto) 2.4 [place] # (Auto) 0.7 Eos # (Auto) 0.3 Baso # (Auto) 0.0 Absolute Nucleated RBC 0.00 Nucleated RBC % 0.0 Sodium 140 Potassium 3.7 Chloride 103 Carbon Dioxide 29 Anion Gap 8.0 BUN 9 Creatinine 0.8 Estimated GFR (MDRD) 69 L Glucose 89 Calcium 9.1 Total Bilirubin 0.4 AST 23 ALT 19 Alkaline Phosphatase 95 Troponin I High Sens 6.2 B-Natriuretic Peptide Total Protein 6.8 Albumin 3.9 Globulin 2.9 Albumin/Globulin Ratio 1.3 Lipase 46 TSH Free T4 03/12/22 03/12/22 18:22 18:22 WBC RBC Hgb Hct MCV MCH MCHC RDW Plt Count MPV Neut # (Auto) Lymph # (Auto) [place] # (Auto) Eos # (Auto) Baso # (Auto) Absolute Nucleated RBC Nucleated RBC % Sodium Potassium Chloride Carbon Dioxide Anion Gap BUN Creatinine Estimated GFR (MDRD) Glucose Calcium Total Bilirubin AST ALT Alkaline Phosphatase Troponin I High Sens B-Natriuretic Peptide 69 Total Protein Albumin Globulin Albumin/Globulin Ratio Lipase TSH 3.74 Free T4 0.91 - Rads (name of study) cxr Radiology: Final report received (Negative chest) PD Medical Decision Making - ED course Complexity details: reviewed results, re-evaluated patient, considered differential, d/w family ED course: This is a very pleasant well-appearing 82-year-old female that presents the emergency department for evaluation of chest pressure with some vague radiation to her jaw that began this morning. Some nausea but no vomiting or diaphoresis. She denies a history of similar. She does have a history of hypertension as well as Hamlet's disease. No history of diabetes. She is not a smoker. Here in the emergency department she was administered 325 of aspirin as well as 1 tablet of nitroglycerin which fully resolved her of the chest pain though she did develop a mild headache. Here in the ED we were able to closely evaluate her vital signs and her ECG rhythm which remained sinus. She was without tachycardia or hypotension. Her EKG was nonischemic though there are Q waves in the inferior leads likely indicating remote myocardial infarction. CBC and electrolytes were without worrisome findings. Her TSH and free T4 were normal. Her biomarker/high-sensitivity troponin was also negative. 1 biomarker should be considered adequate given that she has had the symptoms since early this a.m. Nonetheless this 82-year-old female with chest pain and pressure and radiation to the jaw that was resolved with nitroglycerin suggest stable angina. A pr escription for nitroglycerin has been sent to the pharmacy. I making the recommendation she also begin taking a daily aspirin. I have asked her to request urgent cardiac stress testing. We also discussed routine emergent return precautions. Departure - Departure Disposition: 01 Home, Self Care Clinical Impression: Chest pain Qualifiers: Ischemic chest pain type: stable angina pectoris Condition: Stable Record reviewed to determine appropriate education?: Yes Instructions: Nitroglycerin Fast Act Dc Follow-Up: Estefany Miles ARNP [Primary Care Provider] - Prescriptions: Nitroglycerin [Nitrostat] 0.4 mg SL Q5MIN PRN #25 tablet PRN Reason: Chest Pain Comments: Shahida you are seen today in the emergency department because since this morning you have had some chest pain and pressure and some vague symptoms near your jaw. Your EKG today does not show signs of an active heart attack though the tracing suggest you have had a heart attack at some point in the past. Here in the emergency department we did obtain labs that showed no worrisome findings specifically your troponin was normal. I did give you a medication called nitroglycerin here in the emergency department and it seemed to improve your chest pain. Because of this I have sent a prescription to the [facility] in [place]. I also want you to start chito ing an 81 mg tablet of aspirin daily. It is critical that you discuss this ED visit with your primary doctor. You should be referred for an urgent stress test. If it home you develop chest pain that does not resolve with the nitroglycerin then you are to return immediately to the emergency department.
[2022-03-12 18:28] LABS: BASOPHILS % (AUTO) 0.6 %; EOSINOPHILS # (AUTO) 0.3 10^3/uL (0.0-0.7); EOSINOPHILS % (AUTO) 3.7 %; HCT - HEMATOCRIT 45.4 % (37.0-47.0); HGB - HEMOGLOBIN 14.7 g/dL (12.0-16.0); LYMPHOCYTES # (AUTO) 2.4 10^3/uL (1.5-3.5); LYMPHOCYTES % (AUTO) 35.8 %; MEAN CORPUSCULAR HEMOGLOBIN 29.8 pg (27.0-31.0); MEAN CORPUSCULAR HGB CONC 32.4 g/dL (32.0-36.0); MEAN CORPUSCULAR VOLUME 92.1 fL (81.0-99.0); MEAN PLATELET VOLUME 9.6 fL (7.9-10.8); MONOCYTES # (AUTO) 0.7 10^3/uL (0.0-1.0); MONOCYTES % (AUTO) 10.9 %; NEUTROPHILS # (AUTO) 3.3 10^3/uL (1.5-6.6); NEUTROPHILS % (AUTO) 48.7 %; PLT - PLATELET COUNT 221 10^3/uL (130-450); RED BLOOD COUNT 4.93 10^6/uL (4.20-5.40); WHITE BLOOD COUNT 6.8 x10^3/uL (4.8-10.8)
--- NOTE | 2022-03-12 18:40 | XRAY Report ---
PROCEDURE: Chest 1 View X-Ray INDICATIONS: Chest Pain TECHNIQUE: One view of the chest was acquired. COMPARISON: None. FINDINGS: Surgical changes and devices: None. Lungs and pleura: No pleural effusions or pneumothorax. Lungs are clear. Mediastinum: Mediastinal contours appear normal. Heart size is normal. Bones and chest wall: No suspicious bony lesions. Overlying soft tissues appear unremarkable. IMPRESSION: Negative chest Reviewed by: Salvatore Ochoa MD on 03/12/2022 6:38 PM PST Approved by: Salvatore Ochoa MD on 03/12/2022 6:38 PM PST Station ID: [id number]
[2022-03-12 18:44] LABS: ALBUMIN 3.9 g/dL (3.2-5.5); ALBUMIN/GLOBULIN RATIO 1.3 (1.0-2.2); BILIRUBIN,TOTAL 0.4 mg/dL (0.2-1.0); CALCIUM 9.1 mg/dL (8.5-10.3); CREATININE 0.8 mg/dL (0.4-1.0); POTASSIUM 3.7 mmol/L (3.5-5.0); TOTAL PROTEIN 6.8 g/dL (6.7-8.2)
[2022-03-12 19:00] LABS: THYROID STIMULATING HORMONE 3.74 uIU/mL (0.34-5.60)
[2022-03-12 19:02] LABS: FREE T4 (FREE THYROXINE) 0.91 ng/dL (0.58-1.64)
[2022-03-12 19:24] VITALS: BP 135/78
== END 2022-03-12 20:07 | disposition home or self-care (01) ==
LOC: ED 17:52
DX: I20.8 Other forms of angina pectoris (principal)
CPT/HCPCS: 36415; 71045; 80053; 83690; 83880; 84439; 84443; 84484; 85025; 93005; 99284; A9270

== ENCOUNTER 2022-04-10 07:25 | Outpatient (CLI) | payer MEDICARE ==
--- NOTE | 2022-04-10 13:56 | XRAY Report ---
PROCEDURE: Ankle 3 View RT INDICATIONS: SPRAIN OF OTHER LIGAMENT OF RIGHT ANKLE TECHNIQUE: 3 views of the ankle were acquired. COMPARISON: None FINDINGS: Bones: No fractures or dislocations. Ankle mortise is normally aligned. No suspicious bony lesions . Soft tissues: No tibiotalar joint effusion. Achilles tendon appears normal. IMPRESSION: No visualized acute fracture or dislocation. However, occult injury cannot be excluded. Recommend short interval imaging follow-up in 7-10 days as clinically indicated for additional evalua tion. Reviewed by: Ave Vilchis MD on 04/10/2022 1:55 PM [facility] Approved by: Ave Vilchis MD on 04/10/2022 1:55 PM [facility] Station ID: [id number]
--- NOTE | 2022-04-10 13:56 | XRAY Report ---
PROCEDURE: Foot 3 View RT INDICATIONS: SPRAIN OF OTHER LIGAMENT OF RIGHT ANKLE TECHNIQUE: 3 views of the foot were acquired. COMPARISON: X-ray ankle 04/10/2022 FINDINGS: Bones: No fractures or dislocations. No suspicious bony lesions. Scattered IP degenerative narrowi ng. Soft tissues: No tibiotalar joint effusion. Achilles tendon appears normal. IMPRESSION: Scattered arthritic changes. Reviewed by: Ave Vilchis MD on 04/10/2022 1:55 PM [facility] Approved by: Ave Vilchis MD on 04/10/2022 1:55 PM [facility] Station ID: [id number]
== END 2022-04-10 07:26 | disposition home or self-care (01) ==
LOC: DI.S 07:25
PROVIDERS: ATTEND Emergency Medicine
DX: S93.491A Sprain of other ligament of right ankle, initial encounter (principal); M19.071 Primary osteoarthritis, right ankle and foot

== ENCOUNTER 2022-05-05 12:30 | Outpatient (CLI) | payer MEDICARE ==
--- NOTE | 2022-05-05 16:27 | Ultrasound Report ---
PROCEDURE: Head or Neck Soft Tissue INDICATIONS: AUTOIMMUNE THYROIDITIS TECHNIQUE: Real-time scanning was performed of the thyroid gland, with image documentation. COMPARISON: Thyroid ultrasound 05/13/2021 FINDINGS: Right: Thyroid lobe measures 4.7 x 1.5 x 1.5 cm, and is homogeneous in echotexture. Left: Thyroid lobe measures 4.5 x 1.9 x 2.0 cm, and is homogenous in echotexture. Isthmus: 0.3 cm thick. Nodule number: One Location: Right inferior Size: 0.4 x 0.4 x 0.4 cm, not significantly changed. Composition: Solid Echogenicity: Hypoechoic Shape: wider than tall. Margins: Smooth Echogenic foci: None Total points: 4 ACR TI-RADS category: Moderately suspicious Nodule number: Two Location: Left mid Size: 2.3 x 1.7 x 1.7 cm, not significantly changed. Composition: Mixed cystic and solid Echogenicity: Isoechoic Shape: wider than tall. Margins: Smooth Echogenic foci: None Total points: 2 ACR TI-RADS category: Not suspicious Previously seen left superior thyroid nodule is no longer visualized. IMPRESSION: Previously seen left superior thyroid nodule is not visualized on the current exam. Andriy tional thyroid nodules do not require dedicated imaging follow-up. ACR TI-RADS definitions and recommendations: TI-RADS 1 (benign): 0 points. FNA not needed. TI-RADS 2 (not suspicious): 2 points. FNA not needed. TI-RADS 3 (mildly suspicious): 3 points. "FNA if 2.5 cm or larger, follow up if 1.5 cm or larger (at 1, 3, and 5 years). TI-RADS 4 (moderately suspicious): 4-6 points. "FNA if 1.5 cm or larger, follow up if 1 cm or larger (at 1, 2, 3, and 5 years). TI-RADS 5 (highly suspicious): 7 points or more. "FNA if 1 cm or larger, follow up if 0.5 cm or larger (every year for 5 years). Reviewed by: Seth Walter MD on 05/05/2022 4:26 PM PST Approved by: Seth Walter MD on 05/05/2022 4:26 PM PST Station ID: [id number]
== END 2022-05-05 12:31 | disposition home or self-care (01) ==
LOC: DI 12:30
PROVIDERS: ATTEND Naturopath
DX: E06.3 Autoimmune thyroiditis (principal); E04.2 Nontoxic multinodular goiter

== ENCOUNTER 2022-09-25 08:00 | Outpatient (CLI) | payer MEDICARE | END 2022-09-25 23:59 | disposition home or self-care (01) | LOC: LAB.S 08:00 | PROVIDERS: ATTEND Physician Assistant | DX: R42 Dizziness and giddiness (principal) | CPT/HCPCS: 82962 ==

== ENCOUNTER 2022-11-20 08:53 | Outpatient (CLI) | payer MEDICARE | END 2022-11-20 23:59 | disposition EMS.NT | LOC: EMS 08:53 | DX: R45.89 Other symptoms and signs involving emotional state (principal) ==